=== PATIENT | female | born 1945 | race Caucasian/White ===

== ENCOUNTER → 2018-01-13 11:58 | Outpatient (CLI) | payer OTHER, SELFPAY ==
--- NOTE | 2018-01-13 | DI.MG.S_ITS ---
BILATERAL DIGITAL SCREENING MAMMOGRAM 3D/2D WITH CAD: 01/13/2018 CLINICAL: Routine screening. Comparison is made to exams dated: 12/07/2016 mammogram, 12/05/2015 mammogram, and 11/25/2014 mammogram - [facility]. There are scattered fibroglandular elements in both breasts. Current study was also evaluated with a Computer Aided Detection (CAD) system. No significant masses, calcifications, or other findings are seen in either breast. There has been no significant interval change. IMPRESSION: NEGATIVE There is no mammographic evidence of malignancy. A 1 year screening mammogram is recommended. This exam was interpreted at Station ID: [id number]. NOTE: For mammograms, a report in lay terms will be sent to the patient. Approximately 15% of breast malignancies will not be visualized mammographically. In the management of a palpable breast mass, a negative mammogram must not discourage biopsy of a clinically suspicious lesion. Electronically Signed By: Ti jackson/veronica:01/13/2018 15:35:08 letter sent: Normal Exam ACR BI-RADS Category 1: Negative 3341F
== END ==
PROVIDERS: PCP Physician Assistant; Visit Provider Physician Assistant
DX: Z12.31 Encounter for screening mammogram for malignant neoplasm of breast (principal)
CPT/HCPCS: 77063; 77067

== ENCOUNTER → 2018-11-24 07:51 | Outpatient (CLI) | payer OTHER, SELFPAY ==
[2018-11-24 09:03] LABS: Add Manual Diff / Slide Review NO; Basophils Absolute Auto 100 /uL (0-100); Basophils Percent Auto 0.9 % (0-2); Eosinophils Absolute Auto 100 /uL (0-450); Eosinophils Percent Auto 1.1 % (2-4); Hematocrit 38.2 % (36-46); Hemoglobin 12.8 g/dL (12.0-16.0); Lymphocytes Absolute Auto 2300 /uL (1100-4500); Lymphocytes Percent Auto 33.8 % (25-40); Mean Corpuscular HGB Conc 33.6 % (30-36); Mean Corpuscular Hemoglobin 30.4 PG (26-34); Mean Corpuscular Volume 90.6 fL (80-100); Monocytes Absolute Auto 500 /uL (0-900); Monocytes Percent Auto 6.7 % (3-14); Neutrophils Absolute Auto 3900 /uL (1500-7000); Neutrophils Percent Auto 57.5 % (50-75); Platelet Count 271 X10^3/uL (150-400); Red Blood Cell Count 4.21 X10^6/uL (4.0-5.2); Red Cell Distribution Width 13.2 % (11.6-14.8); White Blood Cell Count 6.8 X10^3/uL (4.5-11.0)
[2018-11-24 09:11] LABS: Alanine Aminotransferase 21 IU/L (9-52); Albumin 4.1 g/dL (3.5-5.0); Albumin Globulin Ratio 1.5 (1.0-2.8); Alkaline Phosphatase 85 U/L (38-126); Aspartate Aminotransferase 30 IU/L (14-36); BUN Creatinine Ratio 17.5 (6-22); Bilirubin Total 0.3 mg/dL (0.2-1.3); Blood Urea Nitrogen 14 mg/dL (7-17); Calcium 9.7 mg/dL (8.4-10.2); Carbon Dioxide 31 mmol/L (22-32); Chloride 101 mmol/L (98-107); Cholesterol 151 mg/dL (140-199); Estimated Glomerular Filt Rate > 60.0 mL/min (>60); Globulin 2.7 g/dL (1.7-4.1); Glucose 95 mg/dL (80-110); HDL Cholesterol 54 mg/dL (40-60); HEMOLYSIS < 15 (0-50); LDL Cholesterol Calculated 78 mg/dL (<100); Potassium 4.2 mmol/L (3.4-5.1); Sodium 139 mmol/L (137-145); Total Protein 6.8 g/dL (6.3-8.2); Triglycerides 96 mg/dL (35-150)
== END ==
PROVIDERS: PCP Physician Assistant; Visit Provider Physician Assistant
DX: I10 Essential (primary) hypertension (principal); E78.00 Pure hypercholesterolemia, unspecified
CPT/HCPCS: 36415; 80053; 80061; 85025

== ENCOUNTER → 2019-01-23 09:09 | Outpatient (CLI) | payer OTHER, SELFPAY ==
--- NOTE | 2019-01-23 | DI.MG.S_ITS ---
BILATERAL DIGITAL SCREENING MAMMOGRAM 3D/2D WITH CAD: 01/23/2019 CLINICAL: Routine screening. Comparison is made to exams dated: 01/13/2018 mammogram, 12/07/2016 mammogram, and 12/05/2015 mammogram - [facility]. There are scattered fibroglandular elements in both breasts. Current study was also evaluated with a Computer Aided Detection (CAD) system. No significant masses, calcifications, or other findings are seen in either breast. There has been no significant interval change. IMPRESSION: NEGATIVE There is no mammographic evidence of malignancy. A 1 year screening mammogram is recommended. This exam was interpreted at Station ID: [id number]. NOTE: For mammograms, a report in lay terms will be sent to the patient. Approximately 15% of breast malignancies will not be visualized mammographically. In the management of a palpable breast mass, a negative mammogram must not discourage biopsy of a clinically suspicious lesion. Electronically Signed By: Randy teague/veronica:01/23/2019 12:11:23 letter sent: Normal Exam ACR BI-RADS Category 1: Negative 3341F
== END ==
PROVIDERS: PCP Physician Assistant; Visit Provider Physician Assistant
DX: Z12.31 Encounter for screening mammogram for malignant neoplasm of breast (principal)
CPT/HCPCS: 77063; 77067

== ENCOUNTER → 2019-04-21 09:32 | Outpatient (CLI) | payer OTHER, SELFPAY ==
--- NOTE | 2019-04-21 | DI.MRI.S_ITS ---
PROCEDURE: MR KNEE LT WO CON INDICATIONS: Sudden onset of acute posterior and lateral left knee pain TECHNIQUE: Noncontrast sagittal PD fast spin echo and T2 fast spin echo with fat saturation, sagittal 3-D FLASH with fat saturation; coronal T1 spin echo and PD fast spin echo with fat saturation, and axial PD fast spin echo with fat saturation through the knee. COMPARISON: [facility], , KNEE 3V LEFT, 12/24/2013, 11:37. FINDINGS: Image quality: Excellent. Menisci: There is complex tear involving the body and posterior horn the medial meniscus. In addition, a small radial tear is noted in the posterior horn the medial meniscus. Mild degenerative tear is noted in the free edge of the body of the lateral meniscus. The meniscal root ligaments appear intact. Cruciate ligaments: The anterior and posterior cruciate ligaments appear intact. Medial structures: The medial collateral ligament appears intact. The postsemimembranosus tendon insertionsand meniscocapsular junction appear intact. Visualized portions of the pes anserinus tendons appear normal. No abnormal bursal fluid. Lateral structures: The lateral collateral ligament and the biceps femoris tendon appear intact. The popliteus tendon appears normal; the popliteofibular ligament appears intact. Iliotibial band appears normal. Anterior structures: The quadriceps and patellar tendons appear intact. Patellar alignment is normal. No femoral trochlear dysplasia or ventral trochlear prominence. No edema in the infrapatellar fat pad. Bones and cartilage: No bone marrow contusions or fractures. Severe chondromalacia patella. There is mild cartilage thinning and fibrillation of the medial and lateral femorotibial compartments. Joint space: There is moderate knee joint fluid. Tiny Mora's cyst. Normal appearing synovial plicae are incidentally noted. IMPRESSION: 1. Complex tear of the body and posterior horn of the medial meniscus. In addition, there is a radial tear of the posterior horn of the medial meniscus. 2. Degenerative tear of the free edge of the body of the lateral meniscus. 3. Severe chondromalacia patella. 4. Mild cartilage thinning and fibrillation of the medial and lateral femorotibial compartments. 5. Moderate knee joint effusion. 6. A tiny Mora's cyst. Dictated by: Brenton Mcintosh M.D. on 04/23/2019 at 8:55 Transcribed by: CHRISTOPHER on 04/23/2019 at 9:05 Approved by: Brenton Mcintosh M.D. on 04/23/2019 at 9:34
== END ==
PROVIDERS: PCP Physician Assistant; Visit Provider Physician Assistant
DX: M25.562 Pain in left knee (principal); S83.232A Complex tear of medial meniscus, current injury, left knee, initial encounter; S83.282A Other tear of lateral meniscus, current injury, left knee, initial encounter; M22.42 Chondromalacia patellae, left knee; M25.462 Effusion, left knee
CPT/HCPCS: 73721

== ENCOUNTER → 2020-01-22 10:16 | Outpatient (CLI) | payer OTHER, SELFPAY ==
[2020-01-23 06:52] LABS: COVID19 Sendout Not Detected (Not Detect)
== END ==
PROVIDERS: PCP Physician Assistant; Visit Provider Physician Assistant
DX: Z01.812 Encounter for preprocedural laboratory examination (principal)
CPT/HCPCS: 87635

== ENCOUNTER → 2020-02-19 12:56 | Outpatient (CLI) | payer OTHER, SELFPAY ==
--- NOTE | 2020-02-19 12:59 | DI.MG.S_ITS ---
BILATERAL DIGITAL SCREENING MAMMOGRAM 3D/2D WITH CAD: 02/19/2020 Comparison is made to exams dated: 12/07/2016 mammogram and 12/05/2015 mammogram - [facility]. There are scattered fibroglandular elements in both breasts. Current study was also evaluated with a Computer Aided Detection (CAD) system. No significant masses, calcifications, or other findings are seen in either breast. There has been no significant interval change. IMPRESSION: NEGATIVE There is no mammographic evidence of malignancy. A 1 year screening mammogram is recommended. This exam was interpreted at Station ID: [id number]. NOTE: For mammograms, a report in lay terms will be sent to the patient. Approximately 15% of breast malignancies will not be visualized mammographically. In the management of a palpable breast mass, a negative mammogram must not discourage biopsy of a clinically suspicious lesion. Electronically Signed By: Narcisa lacey/veronica:02/19/2020 16:55:39 letter sent: Normal Exam ACR BI-RADS Category 1: Negative 3341F
== END ==
PROVIDERS: PCP Physician Assistant; Referring Provider Physician Assistant; Visit Provider Physician Assistant
DX: Z12.31 Encounter for screening mammogram for malignant neoplasm of breast (principal)
CPT/HCPCS: 77063; 77067

== ENCOUNTER → 2020-03-01 10:55 | Outpatient (CLI) | payer OTHER, SELFPAY ==
[2020-03-02 06:38] LABS: COVID19 Sendout Not Detected (Not Detect)
== END ==
PROVIDERS: PCP Physician Assistant; Visit Provider Physician Assistant
DX: Z11.59 Encounter for screening for other viral diseases (principal)
CPT/HCPCS: 87635

== ENCOUNTER 2020-03-04 12:06 | Day surgery (SDC) | payer OTHER, SELFPAY ==
--- NOTE | 2020-03-04 | PATH_ITS ---
[facility] Accession Number: [id number] . 01 Material submitted: . PART A: duodenum - DUODENUM PART B: gastrointestinal site - STOMACH PART C: esophagus - ESOPHAGUS PART D: colon - COLON POLYP @ 80CM PART E: colon - BIOPSY COLON @ 45CM . 01 Clinical history: . SDC . 02 Diagnosis: A. Duodenum, Biopsy: Duodenal mucosa with no diagnostic abnormality. Negative for active inflammation, features of sprue, dysplasia, or malignancy. . B. Stomach, Biopsy: Antral mucosa with mild chronic gastritis. Negative for Helicobacter by immunohistochemistry. Negative for intestinal metaplasia. Negative for dysplasia and malignancy. . C. Esophagus, Biopsy: Squamocolumnar junctional mucosa with specialized intestinal metaplasia, consistent with Vera's esophagus. Negative for dysplasia and malignancy. . D. Colon, Polyp at 80 cm, Biopsy: Inflammatory polyp. . E. Colon, 45 cm, Biopsy: Tubular adenoma. [facility] 03/06/2020 1526 Local . 02 Electronically signed: . Yareli Ledezma MD, Pathologist NPI- [id number] . 01 Gross description: . Part A: DUODENUM: Received in formalin is 1 fragment(s) of crum, soft tissue measuring 0.3 x 0.3 x 0.2 cm submitted entirely in 1 cassette(s) Part B: STOMACH: Received in formalin are 2 fragment(s) of crum, soft tissue measuring 0.5 x 0.2 x 0.1 cm to 0.2 x 0.2 x 0.1 cm submitted entirely in 1 cassette(s) Part C: ESOPHAGUS: Received in formalin are 2 fragment(s) of crum, soft tissue measuring 0.3 x 0.2 x 0.2 cm to 0.2 x 0.2 x 0.1 cm submitted entirely in 1 cassette(s) Part D: COLON POLYP @ 80CM: Received in formalin is 1 fragment(s) of crum, soft tissue measuring 0.3 x 0.3 x 0.3 cm submitted entirely in 1 cassette(s) Part E: BIOPSY COLON @ 45CM: Received in formalin are 2 fragment(s) of crum, soft tissue measuring 0.4 x 0.4 x 0.3 cm to 0.2 x 0.1 x 0.1 cm submitted entirely in 1 cassette(s) /Q 03/05/2020 0150 Local . 02 Microscopic: . B. An immunohistochemical stain was performed to evaluate for Helicobacter organisms and is negative. The control stain showed appropriate reactivity. . * This test was developed and its performance characteristics determined by [facility]. It has not been cleared or approved by the U.S. Food and Drug Administration. The FDA has determined that such clearance or approval is not necessary. This test is used for clinical purposes. It should not be regarded as investigational or for research. . 02 Pathologist provided ICD-10: D12.6, K22.70 . 02 CPT . 751387, 650397, 038843, 878659, 803315, [id number] Performed at: 01 [facility] [address] [place] [address], [place], [place] [id number] MD Ti Lozano MD Phone: [phone] Performed at: 02 [facility] [address] [place], [place] [id number] MD Yareli Ledezma MD Phone: [phone]
[2020-03-04 12:41] VITALS: BP 128/73; PULSE 92; RESP 16; TEMP 36.6; O2SAT 100; BMI 27.6
[2020-03-04] MEDS: SODIUM CHLORIDE 0.9% 1,000 ML 200 ML IV (12:41)
--- NOTE | 2020-03-04 13:00 | P.HP_ITS ---
History of Present Illness History of Present Illness Date Patient Seen: 03/04/20 Time Patient Seen: 13:00 Chief complaint: SDC Narrative: This is a 75-year-old woman with history of Vera's esophagus, esophageal stricture, colon polyps, hypertension, GERD, paroxysmal atrial tachycardia status post ablation, here to follow-up for her Vera's esophagus to discuss having a repeat EGD. Her last EGD was done at the [facility], and biopsies were consistent with Vera's esophagus without dysplasia. She had a small hiatal hernia found, and evidence that her prior esophageal dilation which have been done in 2015 was successful. No repeat dilation was done in 2017. She had a colonoscopy done by Dr. Cast 2012. ROS: She currently denies any symptoms of abdominal pain, nausea, vomiting, constipation, diarrhea, melena, hematochezia. She continues to take omeprazole 20 mg once daily. Thirteen system review is otherwise negative other than as mentioned below and in HPI. PE: GENERAL: Well groomed and cooperative. Appears stated age. Answers questions promptly and appropriately. Vital signs noted. HENT: Normocephalic, atraumatic. Hearing intact. EYES: Conjunctiva pink, sclera white, no periorbital swelling. CARDIOVASCULAR: Regular rate. No pedal edema. RESPIRATORY: Non-tachypneic, breathing comfortably on room air. GASTROINTESTINAL: Abdomen soft and non-distended GENITALURINARY: No flank tenderness. MUSCULOSKELETAL: Equal tone and mass bilaterally. SKIN: Warm, dry, soft, appropriate color for ethnicity. No other lesions, rashes, or wounds. NEURO: Alert and Oriented X 3. No gross sensory deficits, or cognitive issues. PSYCH: Appropriate affect and mood. Patient History Medical History Vera esophagus (Acute) High cholesterol (Acute) HTN (hypertension) (Acute) Surgical History History of cardiac radiofrequency ablation (Acute) Hx of hysterectomy (Acute) Family & Social History Family History Mother Hypertension Father Heart disease Sister Cancer Social History: household members spouse Tobacco & Substance use: Smoking Status Never smoker alcohol intake current alcohol intake frequency holiday/special occasion Substance Use Type crack/cocaine Meds Home Medications and Allergies Home Medications Medication Instructions Recorded Confirmed Type aspirin 81 mg tablet,delayed 81 mg PO DAILY 01/10/20 03/04/20 History release calcium carb-Ca gluc 500 mg 500 tab PO DAILY 01/10/20 03/04/20 History calcium-magnesium ox-Mg gluc 250 mg tablet cholecalciferol (vitamin D3) 10 10 mcg PO DAILY 01/10/20 03/04/20 History mcg/drop (400 unit/drop) oral drops coenzyme Q10 75 mg capsule 300 mg PO DAILY cap 01/10/20 03/04/20 History hydrochlorothiazide 12.5 mg capsule 12.5 mg PO DAILY 01/10/20 03/04/20 History krill oil 500 mg capsule 1 mg PO DAILY 01/10/20 03/04/20 History lactobacillus combination no.9 4 4,000 mmu cells PO DAILY 01/10/20 03/04/20 History billion cell capsule lisinopril 20 mg tablet 20 mg PO DAILY 01/10/20 03/04/20 History metoprolol succinate 25 mg capsule 25 mg PO DAILY 01/10/20 03/04/20 History sprinkle, ext. release 24 hr omeprazole 20 mg capsule,delayed 20 mg PO DAILY 01/10/20 03/04/20 History release simvastatin 10 mg tablet 10 mg PO DAILY 01/10/20 03/04/20 History Allergies Allergy/AdvReac Type Severity Reaction Status Date / Time No Known Drug Allergies Allergy Verified 03/04/20 12:30 Exam Vital Signs (past 8 hours): - 03/04/20 12:41 Temperature 97.9 F Pulse Rate 92 H Respiratory Rate 16 Blood Pressure 128/73 Pulse Oximetry 100 Oxygen Delivery Method Room Air Assessment & Plan Assessment and plan (1) Personal history of colonic polyps: Status: Acute (2) Vera esophagus: Status: Acute (3) Acid reflux disease: Status: Acute Assessment & Plan narrative: Risks and benefits of screening colonoscopy and EGD with possible biopsy and possible polypectomy were discussed with the patient including risk of bleeding, perforation, need for additional procedures, risks of anesthesia. The patient desires to proceed with the colonoscopy and EGD procedures. COVID-19 COVID-19 status: Negative Result date/Date tested (Pos, Neg/Pending): 03/01/20 Time Spent With Patient Time with patient: 15-24 minutes Quality VTE Deep Vein Thrombosis/Pulmonary Embolism Present on Admission: No
--- NOTE | 2020-03-04 13:20 | PM.OP.ENDO ---
Operative Date/Time/Diagnoses Date of procedure: 03/04/20 Time of procedure: 13:20 Pre-op diagnosis: History of Vera's esophagus, history of esophageal stricture, history of colon polyps Post-op diagnosis: other (4 cm Vera's esophagus, mild gastritis, mild duodenitis) Procedure & Clinicians Indications: History of Vera's esophagus, history of esophageal stricture, history of colon polyps. Last EGD 3 years ago, last colonoscopy 10 years ago. Surgeon: Brittanie Moctezuma Procedure Notes SCOAP/Timeout: Performed Procedure in detail: The patient was brought to the room and placed in left lateral decubitus position with all bony prominences padded. A bite block was positioned in the patient's mouth to protect the lips, teeth, and tongue for the procedure. A time-out was performed and then the patient was given procedural sedation starting with 2 mg of Versed and 100 mcg of fentanyl. Vitals were monitored throughout the procedure and remained stable. Once adequately sedated, the procedure was begun. The lubricated gastroscope was passed through the bite block and across the tongue and into the esophagus without incident. A tubular view of the esophagus was maintained as the scope was advanced through the esophagus and into the stomach. The scope was advanced through the stomach and to the pylorus. The scope was gently popped through the pylorus and into the duodenal bulb. The scope was flexed and advanced into the second and third portions of the duodenum. The duodenum and duodenal bulb showed signs of mild inflammation. This was biopsied.. The scope was withdrawn into the stomach. The stomach showed signs of mild gastritis. This was biopsied.. The scope was retroflexed and the gastric cardia was examined. The hiatus revealed a Hill grade 4 hiatal hernia, without any erosions or William ulcers.. The scope was then straightened, and withdrawn into the esophagus. There was no evidence of Vera's esophagus from 30 cm to 34 cm in the distal esophagus. There was no evidence of stricture. The distal esophagus was biopsied. The scope was then withdrawn through the esophagus with a tubular view. The scope was then withdrawn from the patient without incident. The patient was then turned for the colonoscopy portion of the procedure. She was found to be quite awake at this point, an additional 2 mg of Versed were given. A total of seven mg of Versed and 150 micro g of fentanyl were given for the entire procedure A rectal exam was performed revealing no abnormalities. The colonoscope was then introduced to the rectum and advanced to the cecum in the usual fashion. The cecum was identified by the appendiceal orifice, the mucosal tri-fold, and the ileocecal valve. The scope was then retracted while rotating side to side and examining each mucosal fold. In adenomatous appearing polyp was found at 80 cm and removed with cold snare. I have a plastic appearing polyp was found at 45 cm and removed with cold forceps. At the conclusion of the procedure retroflexion was performed and small grade 1-2 internal hemorrhoids without stigmata of bleeding were seen. The scope was then withdrawn from the rectum the procedure was concluded. The patient tolerated the procedure well and was transferred to the PACU in stable condition. Scope withdrawal time: 12 Sedation minutes: 37 Findings: Vera's esophagus, gastritis, hiatal hernia (Hill grade 4) and polyp (Two colon polyps) Specimen(s): other (Biopsies of duodenum, stomach, distal esophagus colon polyp from 80 cm, and colon polyp from 45 cm) Complications: none Impression: [place]-colored mucosa in the distal esophagus from 30 cm to 34 cm, mild endoscopic gastritis and duodenitis, adenomatous appearing small polyp at 80 cm, hyperplastic appearing small polyp at 45 cm. Post-procedure Recommendations: Colonscopy in 5 years (Depending on pathology results), EGD in 3 years (Depending on pathology results), Continue medication(s) (Continue omeprazole) and Other recommendation (Letter will be sent with pathology results and final recommendations for future colonoscopy and EGD) Follow up: as needed Disposition: PACU
[2020-03-04] MEDS: ONDANSETRON 4 MG/2 ML INJ IV (13:25)
[2020-03-04] MEDS: MIDAZOLAM 5 MG/5 ML VIAL IV ×4 (13:27→13:45)
[2020-03-04] MEDS: LIDOCAINE 4% SOLN 50 ML 20 ML TOP (13:30)
[2020-03-04] MEDS: fentaNYL 250 MCG/5 ML INJ IV ×2 (13:32→13:44)
[2020-03-04 14:12] VITALS: BP 111/50; PULSE 81; RESP 19; TEMP 36.1; O2SAT 99
[2020-03-04 14:17] VITALS: BP 105/59; PULSE 77; RESP 12; O2SAT 100
[2020-03-04 14:22] VITALS: BP 119/55; PULSE 72; RESP 10; O2SAT 100
[2020-03-04 14:32] VITALS: BP 109/56; PULSE 66; RESP 13; O2SAT 100
[2020-03-04 14:40] VITALS: BP 107/49; PULSE 75; RESP 16; TEMP 36.4; O2SAT 100
--- NOTE | 2020-03-04 15:11 | SUR.PHASEII ---
1500-Pt dressed and ready to go, iv site dcd site clear. All dc instructions given and pt verbalizes understanding. Taken via wc to curbside private vehicle and
== END 2020-03-04 15:00 | disposition home or self-care (01) ==
PROVIDERS: PCP Physician Assistant; Referring Provider Surgery; Visit Provider Surgery
PROC: 0DJ08ZZ Inspection of Upper Intestinal Tract, Via Natural or Artificial Opening Endoscopic (ICD-10-PCS; CPT 43235; principal; 2020-03-04 13:00)
PROC: 0DJD8ZZ Inspection of Lower Intestinal Tract, Via Natural or Artificial Opening Endoscopic (ICD-10-PCS; CPT 45378; 2020-03-04 13:00)
DX: Z12.11 Encounter for screening for malignant neoplasm of colon (principal); Z86.010 Personal history of colon polyps; E78.00 Pure hypercholesterolemia, unspecified; I10 Essential (primary) hypertension; K64.0 First degree hemorrhoids; K44.9 Diaphragmatic hernia without obstruction or gangrene; K22.70 Barrett's esophagus without dysplasia; K29.80 Duodenitis without bleeding; K29.50 Unspecified chronic gastritis without bleeding; D12.6 Benign neoplasm of colon, unspecified
CPT/HCPCS: 45385; 45380; 43239; 45390; 99152; 99153; J2250; J2405; J3010

== ENCOUNTER → 2020-08-15 18:37 | Outpatient (ROUT) | payer OTHER, SELFPAY ==
[2020-08-15 19:38] LABS: Add Manual Diff / Slide Review NO; Basophils Absolute Auto 100 /uL (0-100); Eosinophils Absolute Auto 100 /uL (0-450); Eosinophils Percent Auto 1.1 % (2-4); Hemoglobin 13.2 g/dL (12.0-16.0); Lymphocytes Absolute Auto 2200 /uL (1100-4500); Lymphocytes Percent Auto 29.5 % (25-40); Mean Corpuscular HGB Conc 32.9 % (30-36); Mean Corpuscular Hemoglobin 29.9 PG (26-34); Monocytes Absolute Auto 500 /uL (0-900); Monocytes Percent Auto 7.4 % (3-14); Neutrophils Absolute Auto 4500 /uL (1500-7000); Platelet Count 283 X10^3/uL (150-400); Red Cell Distribution Width 13.3 % (11.6-14.8); White Blood Cell Count 7.3 X10^3/uL (4.5-11.0)
[2020-08-15 19:40] LABS: Alanine Aminotransferase 22 IU/L (<35); Albumin 4.3 g/dL (3.5-5.0); Albumin Globulin Ratio 1.5 (1.0-2.8); Alkaline Phosphatase 97 U/L (38-126); Aspartate Aminotransferase 34 IU/L (14-36); Bilirubin Total 0.3 mg/dL (0.2-1.3); Blood Urea Nitrogen 17 mg/dL (7-17); Calcium 9.8 mg/dL (8.4-10.2); Carbon Dioxide 32 mmol/L (22-32); Chloride 100 mmol/L (98-107); Cholesterol 164 mg/dL (140-199); Estimated Glomerular Filt Rate > 60.0 mL/min (>60); Globulin 2.8 g/dL (1.7-4.1); Glucose 91 mg/dL (80-110); HDL Cholesterol 53 mg/dL (40-60); HEMOLYSIS < 15 (0-50); LDL Cholesterol Calculated 65 mg/dL (<100); Potassium 4.2 mmol/L (3.4-5.1); Sodium 136 mmol/L (137-145); Total Protein 7.1 g/dL (6.3-8.2); Triglycerides 232 mg/dL (35-150)
== END ==
PROVIDERS: PCP Physician Assistant; Visit Provider Physician Assistant
DX: I10 Essential (primary) hypertension (principal)
CPT/HCPCS: 80053; 80061; 85025

== ENCOUNTER → 2020-08-19 12:24 | Outpatient (CLI) | payer MEDICARE, SELFPAY ==
[2020-08-19] MEDS: COVID-19 VACC #1, MRNA(MOD) 100 MCG/0.5 ML VIAL IM (12:27)
== END ==
PROVIDERS: PCP Physician Assistant; Visit Provider Internal Medicine
DX: Z23 Encounter for immunization (principal)
CPT/HCPCS: 0011A; 91301

== ENCOUNTER → 2020-09-16 12:22 | Outpatient (CLI) | payer MEDICARE, SELFPAY ==
[2020-09-16] MEDS: COVID-19 VACC #2, MRNA(MOD) 100 MCG/0.5 ML VIAL IM (12:34)
== END ==
PROVIDERS: PCP Physician Assistant; Visit Provider Internal Medicine
DX: Z23 Encounter for immunization (principal)
CPT/HCPCS: 0012A; 91301

== ENCOUNTER 2020-12-18 12:45 | Outpatient (RCR) | payer OTHER, SELFPAY ==
--- NOTE | 2020-10-31 13:42 | PT.OIE ---
Current Diagnoses Stiffness of left hip, not elsewhere classified (10/31/20) Muscle weakness (generalized) (10/31/20) Rectocele (10/31/20) Flatulence (10/31/20) Past Medical History (Last Reviewed 03/04/20 @ 13:01 by Brittanie Moctezuma MD) Vera esophagus High cholesterol HTN (hypertension) Past Surgical History (Last Reviewed 03/04/20 @ 13:01 by Brittanie Moctezuma MD) History of cardiac radiofrequency ablation Hx of hysterectomy Visit Care Team Role Provider Type Leilani Titus PA-C Family Provider Non-Staff Primary Care Provider Specialty: Internal Medicine Address: [address] [place] [address], [address] Email: [email or web address] Corin De La Paz MD Attending Provider Non-Staff Referring Provider Specialty: Urology Address: [address] [place] [address], [id number] Email: Physical Therapy Initial Evaluation PT-OP-A Visit Information Start: 10/22/20 10:34 Freq: Status: Active Protocol: Document 10/31/20 10:40 LRN (Rec: 10/31/20 11:30 LRN [id number]) Out-Patient Physical Therapy Visit Information Visit Information Visit Type Initial Evaluation Visit Start Time 10:40 Visit Stop Time 11:29 Total Visit Minutes 49 Visit Number 1 Evaluation Information Evaluation Date 10/31/20 Precautions Precautions Arthritis, Osteporosis, L meniscus tear. PT-OP-B Current Condition Start: 10/22/20 10:34 Freq: Status: Active Protocol: Document 10/31/20 10:40 LRN (Rec: 10/31/20 11:30 LRN [id number]) Current Condition History of Current Condition Onset Date 07/25/2017 Current Complaints Urinary leakage worsened in last few years. History of Current Condition No pain, but uncomfortable feels like guts are falling out. Leaks with transfers to standing and with walking to bathroom. Feels rectum is protruding through vagina wall . Sometimes trouble with constipation and was told to take Psyllium and since then has no constipation. Reports sometimes has uncontrolled flatulence and noise from pelvic floor. Prior Treatments and Tests None. Bladder Studues ([address] De La Paz in [place]: for stress incontinence, and urodynamic study done 09/30/20). Found problem not to be stress related. Future Testing and Treatments Planned None Developmental History Developmental History Progressive worsening of symptoms. Has had 2 vaginal deliveries without urinary leakage. Leakage started 3-4 yrs ago. Treatment Goals Patient/Caregiver Goals Pt goal with therapy is to avoid surgery (Bladder lift with sling). Prior Functional Status Baseline Function- ADL's Independent Baseline Function- Mobility Independent Baseline Function- Other Wears mini-pads for urinary leakage. Wears 2-3/day Current Functional Impairments (Reported) Functional Limitations- Other Hinders abilitiy to go out because of need to know where bathrooms are. Uncontrolled flatulance. Personal Factors Other Personal Factors That May Effect Arthritis, Osteporosis, L knee Therapy/Recovery menicus tear, Chronic back pain. PT-OP-C Subjective Start: 10/22/20 10:34 Freq: Status: Active Protocol: Document 10/31/20 10:40 LRN (Rec: 10/31/20 11:30 LRN [id number]) Patient Questionnaires Pelvic Pain and Urgency/Frequency Patient Symptom Scale Pelvic Pain Score 7 PT-OP-I Pelvic Floor Start: 10/22/20 10:34 Freq: Status: Active Protocol: Document 10/31/20 10:40 LRN (Rec: 10/31/20 11:30 LRN [id number]) Pelvic Floor Assessment Urine Pelvic Floor Surgery No Urinary Symptoms Urge Sensation,Prolapse, Dribbling After Urination, Falling Out Feeling/Heavy Leakage Size Small Leakage Cause Urge Other Leakage Causes Transfers to standing. Leaks Per Day 3-4 Pads Used In 24 Hours 3-4 Urine Pad Type Panty Liner Bowel Bowel Symptoms Uncontrolled Flatulence Bowel Movement Frequency 1 [place] Stool Chart Type 1-7 4 Pelvic Clock Pelvic Clock 12-3 Tenderness Pelvic Clock 3-6 Atrophy Pelvic Clock 6-9 Atrophy Pelvic Clock 9-12 Atrophy Prolapse Cystocele Grade 1 Rectocele Grade 3 Contraction Ability Voluntary Contraction Weak Manual Muscle Testing Left 1 Manual Muscle Testing Right 3 Manual Muscle Testing Anterior 2 Manual Muscle Testing Posterior 0 Muscle Endurance (Seconds) 2 Number of Quick Contractions In 10 0 Seconds Comments Pelvic Floor Comments Able to feel Quick Flicks with 2 finger insertion, not able to feel with 1 finger insertion. PT-OP-J Posture/Palpation/Skin Start: 10/22/20 10:34 Freq: Status: Active Protocol: Document 10/31/20 10:40 LRN (Rec: 10/31/20 11:30 LRN [id number]) Posture Evaluation Position Standing T-Spine Posture Increased Kyphosis L-Spine Posture Increased Lordosis Knee Posture (L) Genu Valgus,(R) Genu Valgus PT-OP-K Range of Motion Start: 10/22/20 10:34 Freq: Status: Active Protocol: Document 10/31/20 10:40 LRN (Rec: 10/31/20 11:30 LRN [id number]) Lumbar Spine Range of Motion Lumbar Spine Active Percentage Testing Position Standing Flexion 100 Extension 25 Rotation Left 75 Rotation Right 75 Lateral Flexion Left 75 Lateral Flexion Right 75 Active Degrees Testing Position Standing Flexion 90 Hip Goniometric Range of Motion Hip Right Passive Testing Position Supine Straight Leg Raise 85 Internal Rotation 30 External Rotation 60 Left Passive Testing Position Supine Straight Leg Raise 95 Internal Rotation 25 External Rotation 40 Comments Trunk rotates R with testing of hip ext PT-OP-M Strength Start: 10/22/20 10:34 Freq: Status: Active Protocol: Document 10/31/20 10:40 LRN (Rec: 10/31/20 11:30 LRN [id number]) Trunk Strength Trunk Manual Muscle Testing Core Stabilization Loss of core stability: Trunk rotates R with testing of hip ext Hip Strength Hip Manual Muscle Testing Right Flexion (L2) 5 Normal Extension (S1) 5 Normal Abduction 5 Normal Adduction 5 Normal External Rotation 5 Normal Internal Rotation 5 Normal Left Flexion (L2) 5 Normal Extension (S1) 4 Good Abduction 5 Normal Adduction 2+ Poor+ External Rotation 5 Normal Comments IR caused knee pian. PT-OP-Q Treatments Start: 10/22/20 10:34 Freq: Status: Active Protocol: Document 10/31/20 10:40 LRN (Rec: 10/31/20 11:30 LRN [id number]) Self-Care/Home Management Treatment Education Other Education Discussed results of evaluation, goals, and plan of care. Activities Self-Care/Home Management Activities Issued & reviewed and I/S pt in Bladder Diary to be completed in the next week. Issued & reviewed HEP: Kegels : Quick Flicks, Long holds, Aggrevators. PT-OP-T Assessment and Plan Start: 10/22/20 10:34 Freq: Status: Active Protocol: Document 10/31/20 10:40 LRN (Rec: 10/31/20 11:30 LRN [id number]) Physical Therapy Assessment Rehab Potential Rehabilitation Potential Good Evaluation Complexity Number of Personal Factors/Comorbidities 1-2 Number of Body Systems Impaired 4 or More Clinical Presentation at Evaluation Evolving Impairments Impairments Activity Tolerance, Coordination,ROM,Strength, Transfers Goals Three Impairment Uncontrolled flatulence Halfway Goal (LTG) Pt will be able to control flatulence with transfers. LTG Duration 12/30/20 Two Impairment Urinary leakage with transfers Short Term Goal (STG) No leakage with transfers to standing. STG Duration 11/28/20 Substation Mechanic Goal (LTG) Pt will be educated in self care PF strengthening exercises, for pt goal of decreasing need for PF sling surgery. LTG Duration 12/30/20 One Impairment Lacks appropriate self care program. Short Term Goal (STG) Pt will be educated in breathing techniques, transfers, body mechanics, and self care. STG Duration 11/14/20 Halfway Goal (LTG) Pt will be educated in an independent self care HEP of PF strengtheniing exercises to prevent worsening prolapse symptoms. LTG Duration 12/30/20 Assessment Summary Assessment Pt is a 75 yo female with complaints of urinary leakage primarily with transfer to standing and with walking to the bathroom. The pt reports no pelvic floor pain, but reports a feeling of falling out. She presents with a grade 3 rectocele and grade 1 cystocele, resulting in flatulence symptoms and urinary leakage with stress. The pt hopes to learn a PF care program in 3 visits, but will need an extended time period to achieve her stated goals. Additionally the pt would benefit from more visits to address other factors affecting her dysfunction (hip mobility and low back dysfunction). The pt will benefit from skilled physical therapy for pelvic floor rehabilitation of strengthening ex's, core/hip strengthening and ROM ex's and pt education in proper PF care & body mechanics. Physical Therapy Plan Frequency and Duration Frequency of Treatment 1x/Week Plan of Care Start Date 10/31/20 Plan of Care End Date 12/30/20 Therapeutic Interventions Therapeutic Interventions Home Exercise Program,Manual Therapy,Neuromuscular Re- education,Patient/Caregiver Education,Self-Care/Home Management,Soft Tissue Mobilization,Therapeutic Activities,Therapeutic Exercises Modalities Biofeedback,Electric Stimulation Next Visit Focus/Plan Next Note Type Treatment Note Next Visit Plan Review/discuss Bladder Diary, review HEP and add Deep Breathing, PF strengthening rehab, education in PF care and proper body mechanics, possible PF EMG assessment, ex 's for core/hips.
--- NOTE | 2020-10-31 13:42 | PT.OPPOC ---
Physical, Occupational & Speech Therapy At [facility] Current Diagnoses Stiffness of left hip, not elsewhere classified (10/31/20) Muscle weakness (generalized) (10/31/20) Rectocele (10/31/20) Flatulence (10/31/20) Visit Care Team Role Provider Type Leilani Titus PA-C Family Provider Non-Staff Primary Care Provider Specialty: Internal Medicine Address: [address] [place] [address], [address] Email: [email or web address] Corin De La Paz MD Attending Provider Non-Staff Referring Provider Specialty: Urology Address: [address] [place] [address], [address] Email: Plan Of Care PT-OP-T Assessment and Plan Start: 10/22/20 10:34 Freq: Status: Active Protocol: Document 10/31/20 10:40 LRN (Rec: 10/31/20 11:30 LRN [id number]) Physical Therapy Assessment Rehab Potential Rehabilitation Potential Good Evaluation Complexity Number of Personal Factors/Comorbidities 1-2 Number of Body Systems Impaired 4 or More Clinical Presentation at Evaluation Evolving Impairments Impairments Activity Tolerance, Coordination,ROM,Strength, Transfers Goals Three Impairment Uncontrolled flatulence Residential Goal (LTG) Pt will be able to control flatulence with transfers. LTG Duration 12/30/20 Two Impairment Urinary leakage with transfers Short Term Goal (STG) No leakage with transfers to standing. STG Duration 11/28/20 Residential Goal (LTG) Pt will be educated in self care PF strengthening exercises, for pt goal of decreasing need for PF sling surgery. LTG Duration 12/30/20 One Impairment Lacks appropriate self care program. Short Term Goal (STG) Pt will be educated in breathing techniques, transfers, body mechanics, and self care. 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 LTG Duration 12/30/20 Assessment Summary Assessment Pt is a 75 yo female with complaints of urinary leakage primarily with transfer to standing and with walking to the bathroom. The pt reports no pelvic floor pain, but reports a feeling of falling out. She presents with a grade 3 rectocele and grade 1 cystocele, resulting in flatulence symptoms and urinary leakage with stress. The pt hopes to learn a PF care program in 3 visits, but will need an extended time period to achieve her stated goals. Additionally the pt would benefit from more visits to address other factors affecting her dysfunction (hip mobility and low back dysfunction). The pt will benefit from skilled physical therapy for pelvic floor rehabilitation of strengthening ex's, core/hip strengthening and ROM ex's and pt education in proper PF care & body mechanics. Physical Therapy Plan Frequency and Duration Frequency of Treatment 1x/Week Plan of Care Start Date 10/31/20 Plan of Care End Date 12/30/20 Therapeutic Interventions Therapeutic Interventions Home Exercise Program,Manual Therapy,Neuromuscular Re- education,Patient/Caregiver Education,Self-Care/Home Management,Soft Tissue Mobilization,Therapeutic Activities,Therapeutic Exercises Modalities Biofeedback,Electric Stimulation Next Visit Focus/Plan Next Note Type Treatment Note Next Visit Plan Review/discuss Bladder Diary, review HEP and add Deep Breathing, PF strengthening rehab, education in PF care and proper body mechanics, possible PF EMG assessment, ex 's for core/hips. Plan of Care Dates Plan of Care Start Date 10/31/20 Plan of Care End Date 12/30/20 Electronically Signed by: Ama Puri, PT 10/31/20 1020 Please Sign and Return: I have reviewed this Plan of Care and certify that the skilled therapy services above are required to meet the patient?s needs. Physician Signature Date Printed Name and Credentials Clinical Instructor Signature Printed Name and Credentials
--- NOTE | 2020-11-06 15:35 | PT.OTN ---
Current Diagnoses Stiffness of left hip, not elsewhere classified (11/06/20) Muscle weakness (generalized) (11/06/20) Rectocele (11/06/20) Flatulence (11/06/20) Physical Therapy Treatment Note PT-OP-A Visit Information Start: 10/22/20 10:34 Freq: Status: Active Protocol: Document 11/06/20 14:17 LRN (Rec: 11/06/20 15:34 LRN [id number]) Out-Patient Physical Therapy Visit Information Visit Information Visit Type Treatment Note Visit Start Time 14:17 Visit Stop Time 15:03 Total Visit Minutes 46 Visit Number 2 Evaluation Information Evaluation Date 10/31/20 Precautions Precautions Arthritis, Osteporosis, L meniscus tear. PT-OP-B Current Condition Start: 10/22/20 10:34 Freq: Status: Active Protocol: Document 10/31/20 10:40 LRN (Rec: 10/31/20 11:30 LRN [id number]) Current Condition History of Current Condition Onset Date 07/25/2017 Current Complaints Urinary leakage worsened in last few years. History of Current Condition No pain, but uncomfortable feels like guts are falling out. Leaks with transfers to standing and with walking to bathroom. Feels rectum is protruding through vagina wall . Sometimes trouble with constipation and was told to take Psyllium and since then has no constipation. Reports sometimes has uncontrolled flatulence and noise from pelvic floor. Prior Treatments and Tests None. Bladder Studues ([address] De La Paz in [place]: for stress incontinence, and urodynamic study done 09/30/20). Found problem not to be stress related. Future Testing and Treatments Planned None Developmental History Developmental History Progressive worsening of symptoms. Has had 2 vaginal deliveries without urinary leakage. Leakage started 3-4 yrs ago. Treatment Goals Patient/Caregiver Goals Pt goal with therapy is to avoid surgery (Bladder lift with sling). Prior Functional Status Baseline Function- ADL's Independent Baseline Function- Mobility Independent Baseline Function- Other Wears mini-pads for urinary leakage. Wears 2-3/day Current Functional Impairments (Reported) Functional Limitations- Other Hinders abilitiy to go out because of need to know where bathrooms are. Uncontrolled flatulance. Personal Factors Other Personal Factors That May Effect Arthritis, Osteporosis, L knee Therapy/Recovery menicus tear, Chronic back pain. PT-OP-C Subjective Start: 10/22/20 10:34 Freq: Status: Active Protocol: Document 11/06/20 14:17 LRN (Rec: 11/06/20 15:34 LRN [id number]) OP-PT Subjective Patient Comments Patient Comments States she forgot her bladder diary at home. Realized that she drinks a lot of water and her triggers are running water and stepping outside when its cold. Drinks 3 cups of black tea a day (2 in AM) and coffee in afternoon @ 4p and 1 black tea at 9:30 pm. PT-OP-I Pelvic Floor Start: 10/22/20 10:34 Freq: Status: Active Protocol: Document 10/31/20 10:40 LRN (Rec: 10/31/20 11:30 LRN [id number]) Pelvic Floor Assessment Urine Pelvic Floor Surgery No Urinary Symptoms Urge Sensation,Prolapse, Dribbling After Urination, Falling Out Feeling/Heavy Leakage Size Small Leakage Cause Urge Other Leakage Causes Transfers to standing. Leaks Per Day 3-4 Pads Used In 24 Hours 3-4 Urine Pad Type Panty Liner Bowel Bowel Symptoms Uncontrolled Flatulence Bowel Movement Frequency 1 [place] Stool Chart Type 1-7 4 Pelvic Clock Pelvic Clock 12-3 Tenderness Pelvic Clock 3-6 Atrophy Pelvic Clock 6-9 Atrophy Pelvic Clock 9-12 Atrophy Prolapse Cystocele Grade 1 Rectocele Grade 3 Contraction Ability Voluntary Contraction Weak Manual Muscle Testing Left 1 Manual Muscle Testing Right 3 Manual Muscle Testing Anterior 2 Manual Muscle Testing Posterior 0 Muscle Endurance (Seconds) 2 Number of Quick Contractions In 10 0 Seconds Comments Pelvic Floor Comments Able to feel Quick Flicks with 2 finger insertion, not able to feel with 1 finger insertion. PT-OP-J Posture/Palpation/Skin Start: 10/22/20 10:34 Freq: Status: Active Protocol: Document 10/31/20 10:40 LRN (Rec: 10/31/20 11:30 LRN [id number]) Posture Evaluation Position Standing T-Spine Posture Increased Kyphosis L-Spine Posture Increased Lordosis Knee Posture (L) Genu Valgus,(R) Genu Valgus PT-OP-K Range of Motion Start: 10/22/20 10:34 Freq: Status: Active Protocol: Document 10/31/20 10:40 LRN (Rec: 10/31/20 11:30 LRN [id number]) Lumbar Spine Range of Motion Lumbar Spine Active Percentage Testing Position Standing Flexion 100 Extension 25 Rotation Left 75 Rotation Right 75 Lateral Flexion Left 75 Lateral Flexion Right 75 Active Degrees Testing Position Standing Flexion 90 Hip Goniometric Range of Motion Hip Right Passive Testing Position Supine Straight Leg Raise 85 Internal Rotation 30 External Rotation 60 Left Passive Testing Position Supine Straight Leg Raise 95 Internal Rotation 25 External Rotation 40 Comments Trunk rotates R with testing of hip ext PT-OP-M Strength Start: 10/22/20 10:34 Freq: Status: Active Protocol: Document 10/31/20 10:40 LRN (Rec: 10/31/20 11:30 LRN [id number]) Trunk Strength Trunk Manual Muscle Testing Core Stabilization Loss of core stability: Trunk rotates R with testing of hip ext Hip Strength Hip Manual Muscle Testing Right Flexion (L2) 5 Normal Extension (S1) 5 Normal Abduction 5 Normal Adduction 5 Normal External Rotation 5 Normal Internal Rotation 5 Normal Left Flexion (L2) 5 Normal Extension (S1) 4 Good Abduction 5 Normal Adduction 2+ Poor+ External Rotation 5 Normal Comments IR caused knee pian. PT-OP-Q Treatments Start: 10/22/20 10:34 Freq: Status: Active Protocol: Document 11/06/20 14:17 LRN (Rec: 11/06/20 15:34 LRN [id number]) Therapeutic Exercises Supine Exercises LE Roll in/out w/PF contraction Supine Exercise Name LE Roll in/out w/Deep Breathing/PF contraction Reps/Minutes 5' Comments Extra time for training Roll in/out w/Deep Breathing Supine Exercise Name LE Roll in/out w/Deep Breathing Reps/Minutes 4' Comments Extra time for training Deep Breathing Supine Exercise Name Deep Breathing Reps/Minutes 3' Manual Therapy Treatment Soft Tissue Mobilization ILU bowel massage Body Location Abdomen Mobilization Type Other Intensity/Depth Moderate Body Position Supine Self-Care/Home Management Treatment Education Patient Education Home Exercise Program Other Education Discussed at length: *Bladder diary impressions that the pt had from filling out the diary. *Pelvic and organ anatomy using handout and pelvic modal . Discussed in addition interactions with each pelvic organ. *Suggestions for food and beverages for bladder diet and discussed connection between these foods and bowels. *Discussed at great length bowel program. *Education in Deep Breathing *ILU bowel massage. Activities Self-Care/Home Management Activities Issued & reviewed handouts for : *Deep Breathing *Bowel Program *ILU Bowel Massage *LE Roll in/out w/PF contraction & deep breathing. PT-OP-T Assessment and Plan Start: 10/22/20 10:34 Freq: Status: Active Protocol: Document 11/06/20 14:17 LRN (Rec: 11/06/20 15:34 LRN [id number]) Physical Therapy Assessment Goals Three Impairment Uncontrolled flatulence Alf Goal (LTG) Pt will be able to control flatulence with transfers. LTG Duration 12/30/20 Two Impairment Urinary leakage with transfers Short Term Goal (STG) No leakage with transfers to standing. STG Duration 11/28/20 Alf Goal (LTG) Pt will be educated in self care PF strengthening exercises, for pt goal of decreasing need for PF sling surgery. LTG Duration 12/30/20 One Impairment Lacks appropriate self care program. Short Term Goal (STG) Pt will be educated in breathing techniques, transfers, body mechanics, and self care. (11/06/20: Pt educated in deep breathing, proper breathing with transfers). STG Duration 11/14/20 (11/06/20: Partially met goals) Lumber Stacker Goal (LTG) Pt will be educated in an independent self care HEP of PF strengtheniing exercises to prevent worsening prolapse symptoms. LTG Duration 12/30/20 Progress Towards Goals Progress Comments Progressed HEP. STG #1 PARTIALLY MET. Assessment Summary Assessment After verbal review of pt's bladder diary that she was able to recall, it appears the pt drinks quite a bit of caffeinated drinks; therefore bowel program and posterior PF strengthening is needed. Constipation may be a big factor in her rectocele. Physical Therapy Plan Frequency and Duration Frequency of Treatment 1x/Week Plan of Care Start Date 10/31/20 Plan of Care End Date 12/30/20 Next Visit Focus/Plan Next Note Type Treatment Note Next Visit Plan Review/discuss Bladder Diary ( 2-3 wks), review HEP: Deep Breathing, bowel program adherence, bowel massage, and transfers with proper breathing. Add education in body mechanics, and self care. Progress LE roll in/out exercises. PF strengthening ( LE roll in/out) rehab, review proper body mechanics, start education in PF care. Possible PF EMG assessment, ex's for core/hips.
--- NOTE | 2020-11-27 17:09 | PT.OTN ---
Current Diagnoses Stiffness of left hip, not elsewhere classified (11/27/20) Muscle weakness (generalized) (11/27/20) Rectocele (11/27/20) Flatulence (11/27/20) Physical Therapy Treatment Note PT-OP-A Visit Information Start: 10/22/20 10:34 Freq: Status: Active Protocol: Document 11/27/20 13:34 LRN (Rec: 11/27/20 14:18 LRN [id number]) Out-Patient Physical Therapy Visit Information Visit Information Visit Type Treatment Note Visit Start Time 13:34 Visit Stop Time 14:20 Total Visit Minutes 46 Visit Number 3 Evaluation Information Evaluation Date 10/31/20 Precautions Precautions Arthritis, Osteporosis, L meniscus tear. PT-OP-B Current Condition Start: 10/22/20 10:34 Freq: Status: Active Protocol: Document 10/31/20 10:40 LRN (Rec: 10/31/20 11:30 LRN [id number]) Current Condition History of Current Condition Onset Date 07/25/2017 Current Complaints Urinary leakage worsened in last few years. History of Current Condition No pain, but uncomfortable feels like guts are falling out. Leaks with transfers to standing and with walking to bathroom. Feels rectum is protruding through vagina wall . Sometimes trouble with constipation and was told to take Psyllium and since then has no constipation. Reports sometimes has uncontrolled flatulence and noise from pelvic floor. Prior Treatments and Tests None. Bladder Studues ([address] De La Paz in [place]: for stress incontinence, and urodynamic study done 09/30/20). Found problem not to be stress related. Future Testing and Treatments Planned None Developmental History Developmental History Progressive worsening of symptoms. Has had 2 vaginal deliveries without urinary leakage. Leakage started 3-4 yrs ago. Treatment Goals Patient/Caregiver Goals Pt goal with therapy is to avoid surgery (Bladder lift with sling). Prior Functional Status Baseline Function- ADL's Independent Baseline Function- Mobility Independent Baseline Function- Other Wears mini-pads for urinary leakage. Wears 2-3/day Current Functional Impairments (Reported) Functional Limitations- Other Hinders abilitiy to go out because of need to know where bathrooms are. Uncontrolled flatulance. Personal Factors Other Personal Factors That May Effect Arthritis, Osteporosis, L knee Therapy/Recovery menicus tear, Chronic back pain. PT-OP-C Subjective Start: 10/22/20 10:34 Freq: Status: Active Protocol: Document 11/27/20 13:34 LRN (Rec: 11/27/20 14:18 LRN [id number]) OP-PT Subjective Patient Comments Patient Comments Thinks she is doing better as noted with sit to stand (less to no leakage). Taking Psylleum and every other day fiber (vegs & fruit & more water). Having daily bowel movements. Using cream every 3 days. Hasn't leaked much, happens with cold weather or cold water running, walking to bathroom. She feels she is 40% better. Wants to get urine leakage without leaking to avoid surgery, that is what I want to do. Less feeling of falling out. PT-OP-I Pelvic Floor Start: 10/22/20 10:34 Freq: Status: Active Protocol: Document 10/31/20 10:40 LRN (Rec: 10/31/20 11:30 LRN [id number]) Pelvic Floor Assessment Urine Pelvic Floor Surgery No Urinary Symptoms Urge Sensation,Prolapse, Dribbling After Urination, Falling Out Feeling/Heavy Leakage Size Small Leakage Cause Urge Other Leakage Causes Transfers to standing. Leaks Per Day 3-4 Pads Used In 24 Hours 3-4 Urine Pad Type Panty Liner Bowel Bowel Symptoms Uncontrolled Flatulence Bowel Movement Frequency 1 [place] Stool Chart Type 1-7 4 Pelvic Clock Pelvic Clock 12-3 Tenderness Pelvic Clock 3-6 Atrophy Pelvic Clock 6-9 Atrophy Pelvic Clock 9-12 Atrophy Prolapse Cystocele Grade 1 Rectocele Grade 3 Contraction Ability Voluntary Contraction Weak Manual Muscle Testing Left 1 Manual Muscle Testing Right 3 Manual Muscle Testing Anterior 2 Manual Muscle Testing Posterior 0 Muscle Endurance (Seconds) 2 Number of Quick Contractions In 10 0 Seconds Comments Pelvic Floor Comments Able to feel Quick Flicks with 2 finger insertion, not able to feel with 1 finger insertion. PT-OP-J Posture/Palpation/Skin Start: 10/22/20 10:34 Freq: Status: Active Protocol: Document 10/31/20 10:40 LRN (Rec: 10/31/20 11:30 LRN [id number]) Posture Evaluation Position Standing T-Spine Posture Increased Kyphosis L-Spine Posture Increased Lordosis Knee Posture (L) Genu Valgus,(R) Genu Valgus PT-OP-K Range of Motion Start: 10/22/20 10:34 Freq: Status: Active Protocol: Document 10/31/20 10:40 LRN (Rec: 10/31/20 11:30 LRN [id number]) Lumbar Spine Range of Motion Lumbar Spine Active Percentage Testing Position Standing Flexion 100 Extension 25 Rotation Left 75 Rotation Right 75 Lateral Flexion Left 75 Lateral Flexion Right 75 Active Degrees Testing Position Standing Flexion 90 Hip Goniometric Range of Motion Hip Right Passive Testing Position Supine Straight Leg Raise 85 Internal Rotation 30 External Rotation 60 Left Passive Testing Position Supine Straight Leg Raise 95 Internal Rotation 25 External Rotation 40 Comments Trunk rotates R with testing of hip ext PT-OP-M Strength Start: 10/22/20 10:34 Freq: Status: Active Protocol: Document 10/31/20 10:40 LRN (Rec: 10/31/20 11:30 LRN [id number]) Trunk Strength Trunk Manual Muscle Testing Core Stabilization Loss of core stability: Trunk rotates R with testing of hip ext Hip Strength Hip Manual Muscle Testing Right Flexion (L2) 5 Normal Extension (S1) 5 Normal Abduction 5 Normal Adduction 5 Normal External Rotation 5 Normal Internal Rotation 5 Normal Left Flexion (L2) 5 Normal Extension (S1) 4 Good Abduction 5 Normal Adduction 2+ Poor+ External Rotation 5 Normal Comments IR caused knee pian. PT-OP-Q Treatments Start: 10/22/20 10:34 Freq: Status: Active Protocol: Document 11/27/20 13:34 LRN (Rec: 11/27/20 14:18 LRN [id number]) Therapeutic Exercises Supine Exercises Bridge Supine Exercise Name Bridging with and without PF contraction Reps/Minutes 5' LE Roll in/out w/PF contraction Supine Exercise Name LE Roll in/out w/Deep Breathing/PF contraction Side bilateral Reps/Minutes 8' Comments Extra With & w/o pillow under hips; time for training Roll in/out w/Deep Breathing Supine Exercise Name LE Roll in/out w/Deep Breathing Reps/Minutes 4' Comments Extra time for review Standing Exercises Squats Standing Exercise Name Squats/PF/Breath work Reps/Minutes 4' Trunk rot/arm punch/knee lifts Standing Exercise Name Trunk rot/arm punch/knee lifts /PF contract/exhale on exertion Side bilateral Reps/Minutes 4' Trunk rot punches Standing Exercise Name Trunk rot w/arm punches/ Breathing/PF contraction Side bilateral Reps/Minutes 4' Self-Care/Home Management Treatment Education Other Education Education in proper PF strengthening for movement with her ex routine. Reviewed Blader diary and discussed with pt recommended daily habit changes: increase in non-bladder irritant fluids midday vs sipping, in order to promote middya voiding. Discussed normal voiding times , frequency and nighttime voiding frequency. 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 LTG Duration 12/30/20 Two Impairment Urinary leakage with transfers Short Term Goal (STG) No leakage with transfers to standing. 11/27/20: 40% better STG Duration 11/28/20 (11/27/20: Improving) [facility] Goal (LTG) Pt will be educated in self care PF strengthening exercises, for pt goal of decreasing need for PF sling surgery. LTG Duration 12/30/20 One Impairment Lacks appropriate self care program. Short Term Goal (STG) Pt will be educated in breathing techniques, transfers, body mechanics, and self care. (11/06/20: Pt educated in deep breathing, proper breathing with transfers). STG Duration 11/14/20 (11/06/20: Partially met goals) [facility]ci Goal (LTG) Pt will be educated in an independent self care HEP of PF strengtheniing exercises to prevent worsening prolapse symptoms. LTG Duration 12/30/20 Assessment Summary Assessment Urinary leakage with urge primarily; therefore needs training on urinary delay technique to decreased leakage with sit<>stand. Her overall decrease in urinary leakage is probably due to improved bowel function. Physical Therapy Plan Frequency and Duration Frequency of Treatment 1x/Week Plan of Care Start Date 10/31/20 Plan of Care End Date 12/30/20 Next Visit Focus/Plan Next Note Type Treatment Note Next Visit Plan Review HEP: Deep Breathing, bowel program adherence, bowel massage, and transfers with proper breathing. Add education in Urinary Delay Technique, body mechanics, and self care HEP. Progress LE roll in/out rehab exercises. Education in PF care. Possible PF EMG assessment, ex 's for core/hips.
--- NOTE | 2020-12-04 14:45 | PT.OTN ---
Current Diagnoses Stiffness of left hip, not elsewhere classified (12/04/20) Muscle weakness (generalized) (12/04/20) Rectocele (12/04/20) Flatulence (12/04/20) Physical Therapy Treatment Note PT-OP-A Visit Information Start: 10/22/20 10:34 Freq: Status: Active Protocol: Document 12/04/20 13:39 LRN (Rec: 12/04/20 14:44 LRN [id number]) Out-Patient Physical Therapy Visit Information Visit Information Visit Type Treatment Note Visit Start Time 13:39 Visit Stop Time 14:19 Total Visit Minutes 40 Visit Number 4 Evaluation Information Evaluation Date 10/31/20 Precautions Precautions Arthritis, Osteporosis, L meniscus tear. PT-OP-B Current Condition Start: 10/22/20 10:34 Freq: Status: Active Protocol: Document 10/31/20 10:40 LRN (Rec: 10/31/20 11:30 LRN [id number]) Current Condition History of Current Condition Onset Date 07/25/2017 Current Complaints Urinary leakage worsened in last few years. History of Current Condition No pain, but uncomfortable feels like guts are falling out. Leaks with transfers to standing and with walking to bathroom. Feels rectum is protruding through vagina wall . Sometimes trouble with constipation and was told to take Psyllium and since then has no constipation. Reports sometimes has uncontrolled flatulence and noise from pelvic floor. Prior Treatments and Tests None. Bladder Studues ([address] De La Paz in [place]: for stress incontinence, and urodynamic study done 09/30/20). Found problem not to be stress related. Future Testing and Treatments Planned None Developmental History Developmental History Progressive worsening of symptoms. Has had 2 vaginal deliveries without urinary leakage. Leakage started 3-4 yrs ago. Treatment Goals Patient/Caregiver Goals Pt goal with therapy is to avoid surgery (Bladder lift with sling). Prior Functional Status Baseline Function- ADL's Independent Baseline Function- Mobility Independent Baseline Function- Other Wears mini-pads for urinary leakage. Wears 2-3/day Current Functional Impairments (Reported) Functional Limitations- Other Hinders abilitiy to go out because of need to know where bathrooms are. Uncontrolled flatulance. Personal Factors Other Personal Factors That May Effect Arthritis, Osteporosis, L knee Therapy/Recovery menicus tear, Chronic back pain. PT-OP-C Subjective Start: 10/22/20 10:34 Freq: Status: Active Protocol: Document 12/04/20 13:39 LRN (Rec: 12/04/20 14:44 LRN [id number]) OP-PT Subjective Patient Comments Patient Comments Thinks things are better. Not as much leakage. Back to drinking coffee. PT-OP-I Pelvic Floor Start: 10/22/20 10:34 Freq: Status: Active Protocol: Document 10/31/20 10:40 LRN (Rec: 10/31/20 11:30 LRN [id number]) Pelvic Floor Assessment Urine Pelvic Floor Surgery No Urinary Symptoms Urge Sensation,Prolapse, Dribbling After Urination, Falling Out Feeling/Heavy Leakage Size Small Leakage Cause Urge Other Leakage Causes Transfers to standing. Leaks Per Day 3-4 Pads Used In 24 Hours 3-4 Urine Pad Type Panty Liner Bowel Bowel Symptoms Uncontrolled Flatulence Bowel Movement Frequency 1 [place] Stool Chart Type 1-7 4 Pelvic Clock Pelvic Clock 12-3 Tenderness Pelvic Clock 3-6 Atrophy Pelvic Clock 6-9 Atrophy Pelvic Clock 9-12 Atrophy Prolapse Cystocele Grade 1 Rectocele Grade 3 Contraction Ability Voluntary Contraction Weak Manual Muscle Testing Left 1 Manual Muscle Testing Right 3 Manual Muscle Testing Anterior 2 Manual Muscle Testing Posterior 0 Muscle Endurance (Seconds) 2 Number of Quick Contractions In 10 0 Seconds Comments Pelvic Floor Comments Able to feel Quick Flicks with 2 finger insertion, not able to feel with 1 finger insertion. PT-OP-J Posture/Palpation/Skin Start: 10/22/20 10:34 Freq: Status: Active Protocol: Document 10/31/20 10:40 LRN (Rec: 10/31/20 11:30 LRN [id number]) Posture Evaluation Position Standing T-Spine Posture Increased Kyphosis L-Spine Posture Increased Lordosis Knee Posture (L) Genu Valgus,(R) Genu Valgus PT-OP-K Range of Motion Start: 10/22/20 10:34 Freq: Status: Active Protocol: Document 10/31/20 10:40 LRN (Rec: 10/31/20 11:30 LRN [id number]) Lumbar Spine Range of Motion Lumbar Spine Active Percentage Testing Position Standing Flexion 100 Extension 25 Rotation Left 75 Rotation Right 75 Lateral Flexion Left 75 Lateral Flexion Right 75 Active Degrees Testing Position Standing Flexion 90 Hip Goniometric Range of Motion Hip Right Passive Testing Position Supine Straight Leg Raise 85 Internal Rotation 30 External Rotation 60 Left Passive Testing Position Supine Straight Leg Raise 95 Internal Rotation 25 External Rotation 40 Comments Trunk rotates R with testing of hip ext PT-OP-M Strength Start: 10/22/20 10:34 Freq: Status: Active Protocol: Document 10/31/20 10:40 LRN (Rec: 10/31/20 11:30 LRN [id number]) Trunk Strength Trunk Manual Muscle Testing Core Stabilization Loss of core stability: Trunk rotates R with testing of hip ext Hip Strength Hip Manual Muscle Testing Right Flexion (L2) 5 Normal Extension (S1) 5 Normal Abduction 5 Normal Adduction 5 Normal External Rotation 5 Normal Internal Rotation 5 Normal Left Flexion (L2) 5 Normal Extension (S1) 4 Good Abduction 5 Normal Adduction 2+ Poor+ External Rotation 5 Normal Comments IR caused knee pian. PT-OP-Q Treatments Start: 10/22/20 10:34 Freq: Status: Active Protocol: Document 12/04/20 13:39 LRN (Rec: 12/04/20 14:44 LRN [id number]) Therapeutic Exercises Supine Exercises LE Roll in/out w/PF contraction Supine Exercise Name LE Roll in/out w/Deep Breathing/PF contraction Side bilateral Reps/Minutes 6' Comments Extra With & w/o pillow under hips; time for training Roll in/out w/Deep Breathing Supine Exercise Name LE Roll in/out w/Deep Breathing Reps/Minutes 3' Comments Extra time for review Deep Breathing Supine Exercise Name Deep Breathing Reps/Minutes 3' Therapeutic Activity Therapeutic Activity Proper breathing with transfers/body mechanics Name Proper breathing w/transfer/ body mechanics Reps/Minutes 17' Comments Education and practice with verbal cuing throughout practice of: sit<> stand, sit <>supine, stand<>squat, stand< > forward bending. Self-Care/Home Management Treatment Education Patient Education Body Mechanics,Home Exercise Program Other Education Educated pt in urge deference techique with explanation of PF contraction and deep breathing techniques used, also discussed variances reasons for urges and when it may work better or worse. Reviewed bladder irritant type of fluids and appropriate influid intake volumes associated with pt's weight and in relation to exercise. Educated pt in proper breathing habits for bike riding and discussed sit position on bike seat to minimize stress on PF. Educated pt in repositioning of bladder using gravity ( hamstring stretch position) prior to sitting to minimize feeling of sitting on bladder. Activities Self-Care/Home Management Activities Issued & reviewed Urge deference technique and deep breathing ex. Pt I/S to improve awareness of urge sensation, drinking of more non-bladder irritant fluids. PT-OP-T Assessment and Plan Start: 10/22/20 10:34 Freq: Status: Active Protocol: Document 12/04/20 13:39 LRN (Rec: 12/04/20 14:44 LRN [id number]) Physical Therapy Assessment Goals Three Impairment Uncontrolled flatulence Retirement Goal (LTG) Pt will be able to control flatulence with transfers. LTG Duration 12/30/20 Two Impairment Urinary leakage with transfers Short Term Goal (STG) No leakage with transfers to standing. 11/27/20: 40% better STG Duration 11/28/20 (11/27/20: Improving) Retirement Goal (LTG) Pt will be educated in self care PF strengthening exercises, for pt goal of decreasing need for PF sling surgery. LTG Duration 12/30/20 One Impairment Lacks appropriate self care program. Short Term Goal (STG) Pt will be educated in breathing techniques, transfers, body mechanics, and self care. (12/04/20: Reviewed deep breathing, proper breathing with transfers). STG Duration 11/14/20 (12/04/20: Partially met goals) Set Off Blocker Goal (LTG) Pt will be educated in an independent self care HEP of PF strengtheniing exercises to prevent worsening prolapse symptoms. LTG Duration 12/30/20 Assessment Summary Assessment Pt choosing to continue coffee in AM. Her voiding periods are mostly every 2-3 hours with leakage almost always at 11p; therefore bladder retraining is needed. Further bladder retraining during the day may help pt to decrease leakage, but further PF strengthening is needed in posterior>anterior and L lateral wall. Pt starting bike riding for exercise for the summer and appears to have a good understanding of how to sit on seat for lessening of PF stress and is able to sit upright. Physical Therapy Plan Frequency and Duration Frequency of Treatment 1x/Week Plan of Care Start Date 10/31/20 Plan of Care End Date 12/30/20 Next Visit Focus/Plan Next Note Type Treatment Note Next Visit Plan Review urge deference technique. Add PF self care I /S. Progress LE roll in/out rehab exercises, focus on posterior (0/5), left(1/5) and anterior (2/5 PF . Possible PF EMG assessment, ex's for core/hips.
--- NOTE | 2020-12-09 16:02 | PT.OTN ---
Current Diagnoses Stiffness of left hip, not elsewhere classified (12/09/20) Muscle weakness (generalized) (12/09/20) Rectocele (12/09/20) Flatulence (12/09/20) Physical Therapy Treatment Note PT-OP-A Visit Information Start: 10/22/20 10:34 Freq: Status: Active Protocol: Document 12/09/20 13:39 LRN (Rec: 12/09/20 15:59 LRN [id number]) Out-Patient Physical Therapy Visit Information Visit Information Visit Type Treatment Note Visit Start Time 13:39 Visit Stop Time 14:17 Total Visit Minutes 38 Visit Number 5 Evaluation Information Evaluation Date 10/31/20 Precautions Precautions Arthritis, Osteporosis, L meniscus tear. PT-OP-B Current Condition Start: 10/22/20 10:34 Freq: Status: Active Protocol: Document 10/31/20 10:40 LRN (Rec: 10/31/20 11:30 LRN [id number]) Current Condition History of Current Condition Onset Date 07/25/2017 Current Complaints Urinary leakage worsened in last few years. History of Current Condition No pain, but uncomfortable feels like guts are falling out. Leaks with transfers to standing and with walking to bathroom. Feels rectum is protruding through vagina wall . Sometimes trouble with constipation and was told to take Psyllium and since then has no constipation. Reports sometimes has uncontrolled flatulence and noise from pelvic floor. Prior Treatments and Tests None. Bladder Studues ([address] De La Paz in [place]: for stress incontinence, and urodynamic study done 09/30/20). Found problem not to be stress related. Future Testing and Treatments Planned None Developmental History Developmental History Progressive worsening of symptoms. Has had 2 vaginal deliveries without urinary leakage. Leakage started 3-4 yrs ago. Treatment Goals Patient/Caregiver Goals Pt goal with therapy is to avoid surgery (Bladder lift with sling). Prior Functional Status Baseline Function- ADL's Independent Baseline Function- Mobility Independent Baseline Function- Other Wears mini-pads for urinary leakage. Wears 2-3/day Current Functional Impairments (Reported) Functional Limitations- Other Hinders abilitiy to go out because of need to know where bathrooms are. Uncontrolled flatulance. Personal Factors Other Personal Factors That May Effect Arthritis, Osteporosis, L knee Therapy/Recovery menicus tear, Chronic back pain. PT-OP-C Subjective Start: 10/22/20 10:34 Freq: Status: Active Protocol: Document 12/09/20 13:39 LRN (Rec: 12/09/20 15:59 LRN [id number]) OP-PT Subjective Patient Comments Patient Comments Bike rode 20 miles a few days ago. Up at night x2 going to the bathroom, therefore drinking enough water. Bowels are fine. PT-OP-I Pelvic Floor Start: 10/22/20 10:34 Freq: Status: Active Protocol: Document 10/31/20 10:40 LRN (Rec: 10/31/20 11:30 LRN [id number]) Pelvic Floor Assessment Urine Pelvic Floor Surgery No Urinary Symptoms Urge Sensation,Prolapse, Dribbling After Urination, Falling Out Feeling/Heavy Leakage Size Small Leakage Cause Urge Other Leakage Causes Transfers to standing. Leaks Per Day 3-4 Pads Used In 24 Hours 3-4 Urine Pad Type Panty Liner Bowel Bowel Symptoms Uncontrolled Flatulence Bowel Movement Frequency 1 [place] Stool Chart Type 1-7 4 Pelvic Clock Pelvic Clock 12-3 Tenderness Pelvic Clock 3-6 Atrophy Pelvic Clock 6-9 Atrophy Pelvic Clock 9-12 Atrophy Prolapse Cystocele Grade 1 Rectocele Grade 3 Contraction Ability Voluntary Contraction Weak Manual Muscle Testing Left 1 Manual Muscle Testing Right 3 Manual Muscle Testing Anterior 2 Manual Muscle Testing Posterior 0 Muscle Endurance (Seconds) 2 Number of Quick Contractions In 10 0 Seconds Comments Pelvic Floor Comments Able to feel Quick Flicks with 2 finger insertion, not able to feel with 1 finger insertion. PT-OP-J Posture/Palpation/Skin Start: 10/22/20 10:34 Freq: Status: Active Protocol: Document 10/31/20 10:40 LRN (Rec: 10/31/20 11:30 LRN [id number]) Posture Evaluation Position Standing T-Spine Posture Increased Kyphosis L-Spine Posture Increased Lordosis Knee Posture (L) Genu Valgus,(R) Genu Valgus PT-OP-K Range of Motion Start: 10/22/20 10:34 Freq: Status: Active Protocol: Document 10/31/20 10:40 LRN (Rec: 10/31/20 11:30 LRN [id number]) Lumbar Spine Range of Motion Lumbar Spine Active Percentage Testing Position Standing Flexion 100 Extension 25 Rotation Left 75 Rotation Right 75 Lateral Flexion Left 75 Lateral Flexion Right 75 Active Degrees Testing Position Standing Flexion 90 Hip Goniometric Range of Motion Hip Right Passive Testing Position Supine Straight Leg Raise 85 Internal Rotation 30 External Rotation 60 Left Passive Testing Position Supine Straight Leg Raise 95 Internal Rotation 25 External Rotation 40 Comments Trunk rotates R with testing of hip ext PT-OP-M Strength Start: 10/22/20 10:34 Freq: Status: Active Protocol: Document 10/31/20 10:40 LRN (Rec: 10/31/20 11:30 LRN [id number]) Trunk Strength Trunk Manual Muscle Testing Core Stabilization Loss of core stability: Trunk rotates R with testing of hip ext Hip Strength Hip Manual Muscle Testing Right Flexion (L2) 5 Normal Extension (S1) 5 Normal Abduction 5 Normal Adduction 5 Normal External Rotation 5 Normal Internal Rotation 5 Normal Left Flexion (L2) 5 Normal Extension (S1) 4 Good Abduction 5 Normal Adduction 2+ Poor+ External Rotation 5 Normal Comments IR caused knee pian. PT-OP-Q Treatments Start: 10/22/20 10:34 Freq: Status: Active Protocol: Document 12/09/20 13:39 LRN (Rec: 12/09/20 15:59 LRN [id number]) Therapeutic Exercises Supine Exercises LE Roll in/out heels off wall Supine Exercise Name Heels off imaginary wall Roll in/outs Side bilateral Equipment Used Manual assist to hold legs in an on the wall position Reps/Minutes 4-5x stopped due to hip flexor muscle cramp Comments Extra time needed for positioning and much v cuing needed t Bridge Supine Exercise Name Bridging with and without PF contraction Equipment Used Lev 2 TBand Reps/Minutes 6' LE Roll in/out w/PF contraction Supine Exercise Name LE Roll in/out w/Deep Breathing/PF contraction Side bilateral Resistance Without & with Lev 2 TB Reps/Minutes 12' Comments Extra With & w/o pillow under hips; time for training Roll in/out w/Deep Breathing Supine Exercise Name LE Roll in/out w/Deep Breathing Reps/Minutes 2' Sitting Exercises Hamstring/LE neural stretch Sitting Exercise Name Hamstring/LE neural stretch Side bilateral Reps/Minutes 8' Comments Extra time to find max position of stretch. RLE tighter than LLE. Self-Care/Home Management Treatment Education Patient Education Home Exercise Program Other Education Discussed use of Urge deference technique in allowing pt to make it to BR without leaking. Pt noted it was helpful. Discussed bike seating position and awareness of not stretching of vaginal canal while on bike seat & discussed proper breathing during cycling at times of stress/ force. Activities Self-Care/Home Management Activities Issued Lev 2 Band for HEP of LE roll in/out. Issued Lev 2 Tband. PT-OP-T Assessment and Plan Start: 10/22/20 10:34 Freq: Status: Active Protocol: Document 12/09/20 13:39 LRN (Rec: 12/09/20 15:59 LRN [id number]) Physical Therapy Assessment Goals Three Impairment Uncontrolled flatulence Pilot Teacher Goal (LTG) Pt will be able to control flatulence with transfers. LTG Duration 12/30/20 Two Impairment Urinary leakage with transfers Short Term Goal (STG) No leakage with transfers to standing. (12/09/20: No leakage with transfers) STG Duration 11/28/20 (12/09/20: MET GOAL) Pilot Teacher Goal (LTG) Pt will be educated in self care PF strengthening exercises, for pt goal of decreasing need for PF sling surgery. (12/09/20: LE roll in/out phase I program initiated) LTG Duration 12/30/20 (12/09/20: Progressing) One Impairment Lacks appropriate self care program. Short Term Goal (STG) Pt will be educated in breathing techniques, transfers, body mechanics, and self care. (12/04/20: Reviewed deep breathing, proper breathing with transfers). STG Duration 11/14/20 (12/04/20: Partially met goals) [facility] Goal (LTG) Pt will be educated in an independent self care HEP of PF strengtheniing exercises to prevent worsening prolapse symptoms. LTG Duration 12/30/20 Progress Towards Goals Progress Comments No leakage with transfers. Assessment Summary Assessment Pt improved in level of continence. Urge deference technique has been very helpful in avoiding urinary leakage. Flatulence is mildly present. Pt feeling very good about where she is in her therapy and is feeling she is amost ready for discharge. Feeling confident what she has learned what will help her to avoid rectal surgery for her rectocele. Physical Therapy Plan Frequency and Duration Frequency of Treatment 1x/Week Plan of Care Start Date 10/31/20 Plan of Care End Date 12/30/20 Next Visit Focus/Plan Next Note Type Treatment Note Next Visit Plan Possible DC next visit. Discuss general PF self care and as related to rectocele. Add L sided/posterior PF strengthening. Progress LE roll in/out rehab exercises, focus on posterior (0/5), left (1/5) and anterior (2/5) PF strengthening. Ex's for core/ hips if pt chooses to continue therapy.
--- NOTE | 2020-12-18 13:54 | PT.OTN ---
Current Diagnoses Stiffness of left hip, not elsewhere classified (12/18/20) Muscle weakness (generalized) (12/18/20) Rectocele (12/18/20) Flatulence (12/18/20) Physical Therapy Treatment Note PT-OP-A Visit Information Start: 10/22/20 10:34 Freq: Status: Active Protocol: Document 12/18/20 12:49 LRN (Rec: 12/18/20 13:51 LRN [id number]) Out-Patient Physical Therapy Visit Information Visit Information Visit Type Treatment Note Visit Start Time 12:49 Visit Stop Time 13:35 Total Visit Minutes 46 Visit Number 6 Evaluation Information Evaluation Date 10/31/20 Precautions Precautions Arthritis, Osteporosis, L meniscus tear. PT-OP-B Current Condition Start: 10/22/20 10:34 Freq: Status: Active Protocol: Document 10/31/20 10:40 LRN (Rec: 10/31/20 11:30 LRN [id number]) Current Condition History of Current Condition Onset Date 07/25/2017 Current Complaints Urinary leakage worsened in last few years. History of Current Condition No pain, but uncomfortable feels like guts are falling out. Leaks with transfers to standing and with walking to bathroom. Feels rectum is protruding through vagina wall . Sometimes trouble with constipation and was told to take Psyllium and since then has no constipation. Reports sometimes has uncontrolled flatulence and noise from pelvic floor. Prior Treatments and Tests None. Bladder Studues ([address] De La Paz in [place]: for stress incontinence, and urodynamic study done 09/30/20). Found problem not to be stress related. Future Testing and Treatments Planned None Developmental History Developmental History Progressive worsening of symptoms. Has had 2 vaginal deliveries without urinary leakage. Leakage started 3-4 yrs ago. Treatment Goals Patient/Caregiver Goals Pt goal with therapy is to avoid surgery (Bladder lift with sling). Prior Functional Status Baseline Function- ADL's Independent Baseline Function- Mobility Independent Baseline Function- Other Wears mini-pads for urinary leakage. Wears 2-3/day Current Functional Impairments (Reported) Functional Limitations- Other Hinders abilitiy to go out because of need to know where bathrooms are. Uncontrolled flatulance. Personal Factors Other Personal Factors That May Effect Arthritis, Osteporosis, L knee Therapy/Recovery menicus tear, Chronic back pain. PT-OP-C Subjective Start: 10/22/20 10:34 Freq: Status: Active Protocol: Document 12/18/20 12:49 LRN (Rec: 12/18/20 13:51 LRN [id number]) OP-PT Subjective Patient Comments Patient Comments Better but not as good as she had hoped. Drinking more water and going more and leaked a little. Improved bowel movements 2x/day. Thinks she is better able to hold her flatulence. States she feels she has learned what she wanted to in order to avoid a surgery; therefore ready for discharge from physical therapy. PT-OP-I Pelvic Floor Start: 10/22/20 10:34 Freq: Status: Active Protocol: Document 10/31/20 10:40 LRN (Rec: 10/31/20 11:30 LRN [id number]) Pelvic Floor Assessment Urine Pelvic Floor Surgery No Urinary Symptoms Urge Sensation,Prolapse, Dribbling After Urination, Falling Out Feeling/Heavy Leakage Size Small Leakage Cause Urge Other Leakage Causes Transfers to standing. Leaks Per Day 3-4 Pads Used In 24 Hours 3-4 Urine Pad Type Panty Liner Bowel Bowel Symptoms Uncontrolled Flatulence Bowel Movement Frequency 1 [place] Stool Chart Type 1-7 4 Pelvic Clock Pelvic Clock 12-3 Tenderness Pelvic Clock 3-6 Atrophy Pelvic Clock 6-9 Atrophy Pelvic Clock 9-12 Atrophy Prolapse Cystocele Grade 1 Rectocele Grade 3 Contraction Ability Voluntary Contraction Weak Manual Muscle Testing Left 1 Manual Muscle Testing Right 3 Manual Muscle Testing Anterior 2 Manual Muscle Testing Posterior 0 Muscle Endurance (Seconds) 2 Number of Quick Contractions In 10 0 Seconds Comments Pelvic Floor Comments Able to feel Quick Flicks with 2 finger insertion, not able to feel with 1 finger insertion. PT-OP-J Posture/Palpation/Skin Start: 10/22/20 10:34 Freq: Status: Active Protocol: Document 10/31/20 10:40 LRN (Rec: 10/31/20 11:30 LRN [id number]) Posture Evaluation Position Standing T-Spine Posture Increased Kyphosis L-Spine Posture Increased Lordosis Knee Posture (L) Genu Valgus,(R) Genu Valgus PT-OP-K Range of Motion Start: 10/22/20 10:34 Freq: Status: Active Protocol: Document 10/31/20 10:40 LRN (Rec: 10/31/20 11:30 LRN [id number]) Lumbar Spine Range of Motion Lumbar Spine Active Percentage Testing Position Standing Flexion 100 Extension 25 Rotation Left 75 Rotation Right 75 Lateral Flexion Left 75 Lateral Flexion Right 75 Active Degrees Testing Position Standing Flexion 90 Hip Goniometric Range of Motion Hip Right Passive Testing Position Supine Straight Leg Raise 85 Internal Rotation 30 External Rotation 60 Left Passive Testing Position Supine Straight Leg Raise 95 Internal Rotation 25 External Rotation 40 Comments Trunk rotates R with testing of hip ext PT-OP-M Strength Start: 10/22/20 10:34 Freq: Status: Active Protocol: Document 10/31/20 10:40 LRN (Rec: 10/31/20 11:30 LRN [id number]) Trunk Strength Trunk Manual Muscle Testing Core Stabilization Loss of core stability: Trunk rotates R with testing of hip ext Hip Strength Hip Manual Muscle Testing Right Flexion (L2) 5 Normal Extension (S1) 5 Normal Abduction 5 Normal Adduction 5 Normal External Rotation 5 Normal Internal Rotation 5 Normal Left Flexion (L2) 5 Normal Extension (S1) 4 Good Abduction 5 Normal Adduction 2+ Poor+ External Rotation 5 Normal Comments IR caused knee pian. PT-OP-Q Treatments Start: 10/22/20 10:34 Freq: Status: Active Protocol: Document 12/18/20 12:49 LRN (Rec: 12/18/20 13:51 LRN [id number]) Therapeutic Exercises Supine Exercises Bridge Supine Exercise Name Bridge w/pillow under hips & w /TBand and w/Pillow squeeze Equipment Used Lev 2 TBand & Pillow under hips and btn knees Reps/Minutes 10' Sidelying Exercises Reverse Clamshell Sidelying Exercise Name Reverse clamshell w/PF contraction Side bilateral Equipment Used Lev 2 TB Comments 4' Clamshell Sidelying Exercise Name Clamshell w/PF contraction Side bilateral Equipment Used Lev 2 TB Reps/Minutes 10x 3 Comments 6' Self-Care/Home Management Treatment Education Patient Education Home Exercise Program Other Education Reviewed/discussed urinary urge deference technique with pt to clarify how to use the technique to prevent urinary leakage with an urge. Pt educated and discussed at length: PF care & genital hygiene. Activities Self-Care/Home Management Activities Handout issued for PF care & genital hygiene. Issued & reviewed HEP: Clamshell/PF Reverse Clamshell/PF Bridge with TBand/PF Bridge with ball squeeze/PF PT-OP-T Assessment and Plan Start: 10/22/20 10:34 Freq: Status: Active Protocol: Document 12/18/20 12:49 LRN (Rec: 12/18/20 13:51 LRN [id number]) Physical Therapy Assessment Goals Three Impairment Uncontrolled flatulence [employer] Goal (LTG) Pt will be able to control flatulence with transfers. (12/18/20: No uncontrolled flatulence in clinic) LTG Duration 12/30/20 (12/18/20: MET GOAL in clinlic) Two Impairment Urinary leakage with transfers Short Term Goal (STG) No leakage with transfers to standing. (12/18/20: No Leakage with transfer, but 2x heading to bathroom) STG Duration 11/28/20 (12/18/20: MET GOAL) [facility] Goal (LTG) Pt will be educated in self care PF strengthening exercises, for pt goal of decreasing need for PF sling surgery. (12/09/20: LE roll in/out phase I program initiated) LTG Duration 12/30/20 (12/18/20: MET GOAL) One Impairment Lacks appropriate self care program. Short Term Goal (STG) Pt will be educated in breathing techniques, transfers, body mechanics, and self care. (12/18/20: Pt educated on proper PF self care). STG Duration 11/14/20 (12/18/20: MET GOAL) [facility] Goal (LTG) Pt will be educated in an independent self care HEP of PF strengtheniing exercises to prevent worsening prolapse symptoms. LTG Duration 12/30/20 (12/18/20: MET GOAL ) Progress Towards Goals Progress Comments Goals met, although further ex and HEP could be taught. Assessment Summary Assessment Pt has reportedly improved with holding flatulence and urinary leakage, leaking only 2 times since last appt. Pt found to be doing the urinary urge technique improperly, but today appears to have a good understanding of how to use it to avoid leakage. Pt very receptive to PF care and hygiene education, as well as in her own self care HEP. Pt is happy with what she has learned and feels DC to HEP is appropriate. Physical Therapy Plan Frequency and Duration Frequency of Treatment 1x/Week Plan of Care Start Date 10/31/20 Plan of Care End Date 12/30/20 Discharge Physical Therapy Discharge Reasons Patient Request Discharge Comments The pt would probably benefit from further skilled physical therapy for PF rehabilitation and HEP progression to strengthen the PF and core, but the pt is happy with what she has learned and the improvements she has made thus far. Pt requested discharge from therapy.
== END 2020-12-19 07:47 | disposition home or self-care (01) ==
LOC: PHYS 12:45
PROVIDERS: Family Provider Physician Assistant; PCP Physician Assistant; Referring Provider Urology; Visit Provider Urology
DX: N81.6 Rectocele (principal); M62.81 Muscle weakness (generalized); M25.652 Stiffness of left hip, not elsewhere classified; R14.3 Flatulence
CPT/HCPCS: 97110; 97162; 97530; 97535

== ENCOUNTER → 2021-02-24 14:52 | Outpatient (CLI) | payer OTHER, SELFPAY ==
--- NOTE | 2021-02-24 14:54 | DI.MG.S_ITS ---
BILATERAL DIGITAL SCREENING MAMMOGRAM 3D/2D WITH CAD: 02/24/2021 CLINICAL: Routine screening. Family history of breast cancer. Comparison is made to exams dated: 02/19/2020 mammogram, 01/23/2019 mammogram, and 01/13/2018 mammogram - [facility]. There are scattered fibroglandular elements in both breasts. Current study was also evaluated with a Computer Aided Detection (CAD) system. There are mole markers on both breasts. No significant masses, calcifications, or other findings are seen in either breast. There has been no significant interval change. IMPRESSION: NEGATIVE There is no mammographic evidence of malignancy. A 1 year screening mammogram is recommended. This exam was interpreted at Station ID: [id number]. NOTE: For mammograms, a report in lay terms will be sent to the patient. Approximately 15% of breast malignancies will not be visualized mammographically. In the management of a palpable breast mass, a negative mammogram must not discourage biopsy of a clinically suspicious lesion. Electronically Signed By: Neo Harrison acr/veronica:02/24/2021 15:31:44 letter sent: Normal Exam ACR BI-RADS Category 1: Negative [id number]
== END ==
PROVIDERS: Family Provider Physician Assistant; PCP Physician Assistant; Referring Provider Physician Assistant; Visit Provider Physician Assistant
DX: Z12.31 Encounter for screening mammogram for malignant neoplasm of breast (principal); Z80.3 Family history of malignant neoplasm of breast
CPT/HCPCS: 77063; 77067

== ENCOUNTER 2021-09-08 15:10 | Emergency (ER) | payer OTHER, SELFPAY ==
[2021-09-08 15:24] VITALS: BP 157/95; PULSE 83; RESP 18; TEMP 36.6; O2SAT 99
[2021-09-08 15:49] LABS: Add Manual Diff / Slide Review NO; Basophils Absolute Auto 100 /uL (0-100); Basophils Percent Auto 0.8 % (0-2); Eosinophils Absolute Auto 100 /uL (0-450); Eosinophils Percent Auto 0.5 % (2-4); Hematocrit 38.2 % (36-46); Hemoglobin 12.9 g/dL (12.0-16.0); Lymphocytes Absolute Auto 2400 /uL (1100-4500); Lymphocytes Percent Auto 17.8 % (25-40); Mean Corpuscular HGB Conc 33.8 % (30-36); Mean Corpuscular Volume 88.7 fL (80-100); Monocytes Absolute Auto 800 /uL (0-900); Monocytes Percent Auto 6.3 % (3-14); Neutrophils Absolute Auto 10100 /uL (1500-7000); Neutrophils Percent Auto 74.6 % (50-75); Platelet Count 273 X10^3/uL (150-400); Red Blood Cell Count 4.31 X10^6/uL (4.0-5.2); Red Cell Distribution Width 13.8 % (11.6-14.8); White Blood Cell Count 13.5 X10^3/uL (4.5-11.0)
[2021-09-08 16:12] LABS: Alanine Aminotransferase 18 IU/L (<35); Albumin 4.6 g/dL (3.5-5.0); Albumin Globulin Ratio 1.4 (1.0-2.8); Alkaline Phosphatase 97 U/L (38-126); Aspartate Aminotransferase 33 IU/L (14-36); BUN Creatinine Ratio 13.3 (6-22); Bilirubin Total 0.6 mg/dL (0.2-1.3); Blood Urea Nitrogen 11 mg/dL (7-17); Carbon Dioxide 30 mmol/L (22-32); Chloride 100 mmol/L (98-107); Estimated Glomerular Filt Rate > 60.0 mL/min (>60); Globulin 3.3 g/dL (1.7-4.1); Glucose 96 mg/dL (80-110); HEMOLYSIS < 15 (0-50); Lipase 38 U/L (23-300); Potassium 3.4 mmol/L (3.4-5.1); Sodium 137 mmol/L (137-145); Total Protein 7.9 g/dL (6.3-8.2)
--- NOTE | 2021-09-08 18:30 | DI.CT.S_ITS ---
PROCEDURE: CT ABDOMEN PELVIS W CON INDICATIONS: abd pain TECHNIQUE: After the administration of intravenous contrast, axial sections acquired from the lung bases to the pubic symphysis. Coronal and sagittal reformats were performed. For radiation dose reduction, the following was used: automated exposure control, adjustment of mA and/or kV according to patient size. COMPARISON: None. FINDINGS: Image quality: Excellent. Lung bases: A calcified granuloma is seen at the right lung base. Small hiatal hernia. Heart: No significant findings. ABDOMEN: Liver: A 2.9 x 2.0 cm heterogeneously hyperenhancing lesion at the inferior right hepatic lobe is nonspecific, but may represent a hemangioma. Gallbladder: Unremarkable. Biliary ducts: Unremarkable. Pancreas: Unremarkable. Spleen: Coarse calcifications in the spleen are most likely secondary to prior granulomatous disease. Adrenal Glands: Unremarkable. Kidneys and Ureters: Unremarkable. Stomach and Bowel: Multiple diverticula are seen in the colon. There is bowel wall thickening and inflammatory fat stranding surrounding a diverticulum of the junction of the descending and sigmoid colon. No pneumoperitoneum. Trace reactive fluid is seen without an abscess. No signs of bowel obstruction. Peritoneum: No significant ascites. No free air. Ventral Wall: No hernias. Abdominal Nodes: No retroperitoneal or mesenteric adenopathy by size criteria. Vessels: Aorta and inferior vena cava are normal in size. Mild aortic atherosclerosis. PELVIS: Pelvic Organs: Status post hysterectomy. Mild prolapse of perirectal or peritoneal fat is seen into the perineum. Bladder: Unremarkable. Pelvic Nodes: No enlarged lymph nodes. Miscellaneous: No hernias are seen. Bones: Mild degenerative changes are seen in the spine. Mild levoconvex curvature of the spine. IMPRESSION: 1. Acute uncomplicated diverticulitis at the junction of the sigmoid and descending colon. 2. Nonspecific heterogeneously enhancing 2.9 cm lesion in the inferior right hepatic lobe is most likely a benign hemangioma. Recommend liver protocol MRI or CT for further evaluation, which may be obtained on an non urgent outpatient basis. 3. Small hiatal hernia. Dictated by: Ryan Kang M.D. on 09/08/2021 at 19:13 Approved by: Ryan Kang M.D. on 09/08/2021 at 19:18
--- NOTE | 2021-09-08 18:33 | ED.ABDPAIN ---
HPI - Abdominal Pain General Chief Complaint: Abdominal Pain Stated Complaint: sent for CT - diverticulitis Time Seen by Provider: 09/08/21 18:30 Source: patient Mode of arrival: Ambulatory Limitations: no limitations History of Present Illness HPI narrative: This is a 76-year-old female sent for left lower quadrant pain which has been present for 6-8 weeks. She states it was mild but has been increasing in intensity. She had some radiation to the back but that was for short period of time. She has not any fevers. She had chills for 2 nights. She has had some nausea but no vomiting. She has pain just before having a bowel movement in the left lower quadrant which she describes as sharp. Patient states she has had looser stools than her normal constipation. No black or bloody stools. No dysuria urgency or frequency. No vaginal bleeding or discharge. Patient has history of hypertension and dyslipidemia she has a history of total hysterectomy for endometriosis. She suspects she may have diverticulitis but she has never had before. No tobacco, occasional alcohol, patient denies illicit. Patient's PCP is Kathia Titus. Related Data Home Medications Medication Instructions Recorded Confirmed cholecalciferol (vitamin D3) 10 10 mcg PO DAILY 01/10/20 09/08/21 mcg/drop (400 unit/drop) oral drops (Baby Vitamin D3) coenzyme Q10 75 mg capsule (Ultra 300 mg PO DAILY cap 01/10/20 09/08/21 CoQ10) hydrochlorothiazide 12.5 mg capsule 12.5 mg PO DAILY 01/10/20 09/08/21 krill oil 500 mg capsule 1 mg PO DAILY 01/10/20 09/08/21 lactobacillus combination no.9 4 4,000 mmu cells PO DAILY 01/10/20 09/08/21 billion cell capsule (Adult 50 Plus Probiotic) lisinopril 20 mg tablet 20 mg PO DAILY 01/10/20 09/08/21 metoprolol succinate 25 mg capsule 25 mg PO DAILY 01/10/20 09/08/21 sprinkle, ext. release 24 hr omeprazole 20 mg capsule,delayed 20 mg PO DAILY 01/10/20 09/08/21 release simvastatin 10 mg tablet 10 mg PO DAILY 01/10/20 09/08/21 Previous Rx's Medication Instructions Recorded amoxicillin 875 mg-potassium 1 tab PO Q12H #20 tab 09/08/21 clavulanate 125 mg tablet (Augmentin) Allergies Allergy/AdvReac Type Severity Reaction Status Date / Time No Known Drug Allergies Allergy Verified 03/04/20 12:30 Review of Systems Review of Systems ROS Unobtainable: All systems reviewed & are unremarkable except as noted in HPI and below Patient History Medical History (Updated 09/08/21 @ 19:37 by Stephanie Steve DO) Vera esophagus High cholesterol HTN (hypertension) Surgical History History of cardiac radiofrequency ablation Hx of hysterectomy Family History Mother Hypertension Father Heart disease Sister Cancer Social History marital status: household members: spouse Smoking Status: Never smoker alcohol intake: current substance use type: does not use Smoking Status: Never smoker alcohol intake frequency: holidays/special occasions only Substance Use Type: crack/cocaine Exam Narrative Exam Narrative: GENERAL: Alert and oriented x three, female in mild distress. HEENT: Head normocephalic, atraumatic, EOMI, pupils reactive, face symmetric, moist mucous membranes NECK: Supple, full range of motion CARDIOVASCULAR: Regular rate and rhythm without murmurs, rubs or gallops. RESPIRATORY: Breath sounds equal bilaterally, no wheezes rales or rhonchi. ABDOMEN: Soft, positive for left upper and left lower quadrant tenderness. Nondistended. Bowel sounds all 4 quadrants. No guarding or rebound, rigidity, no mass : No CVA tenderness EXTREMITIES: Normal range of motion, no clubbing or edema. Neurovascularly intact NEUROLOGICAL: Cranial nerves II through XII grossly intact. Moving all extremities SKIN: Warm, dry, no petechiae, no rashes or lesions. Initial Vital Signs Initial Vital Signs: Vital Signs Temperature 97.9 F 09/08/21 15:24 Pulse Rate 83 09/08/21 15:24 Respiratory Rate 18 09/08/21 15:24 Blood Pressure 157/95 H 09/08/21 15:24 Pulse Oximetry 99 09/08/21 15:24 Course Orders Ordered: ED Orders 09/08/21 18:45 Urine Microscopic Stat Discontinued Medications Amoxicillin/Clavulanate Potassium (Amoxicillin/Clav 875/125 Mg) 1 tab PO NOW ONE Stop: 09/08/21 19:47 Last Admin: 09/08/21 19:54 Dose: 1 tab Documented by: SHAHAB Vital Signs Vital signs: Vital Signs - 8 hr 09/08/21 20:01 Pulse Rate 86 Respiratory Rate 18 Blood Pressure 180/75 H Pulse Oximetry 98 MDM - Abdominal Pain Lab Data Result diagrams: 09/08/21 15:35 09/08/21 15:35 Labs: Lab Results 09/08/21 09/08/21 09/08/21 Range/Units 15:35 15:35 18:45 WBC 13.5 H (4.5-11.0) X10^3/uL RBC 4.31 (4.0-5.2) X10^6/uL Hgb 12.9 (12.0-16.0) g/dL Hct 38.2 (36-46) % MCV 88.7 (80-100) fL MCH 30.0 (26-34) PG MCHC 33.8 (30-36) % RDW 13.8 (11.6-14.8) % Plt Count 273 (150-400) X10^3/uL Neut % (Auto) 74.6 (50-75) % Lymph % (Auto) 17.8 L (25-40) % [place] % (Auto) 6.3 (3-14) % Eos % (Auto) 0.5 L (2-4) % Baso % (Auto) 0.8 (0-2) % Neut # (Auto) 99704 H (1592-3658) /uL Lymph # (Auto) 2400 (3456-6227) /uL [place] # (Auto) 800 (0-900) /uL Eos # (Auto) 100 (0-450) /uL Baso # (Auto) 100 (0-100) /uL Sodium 137 (137-145) mmol/L Potassium 3.4 (3.4-5.1) mmol/L Chloride 100 (98-107) mmol/L Carbon Dioxide 30 (22-32) mmol/L BUN 11 (7-17) mg/dL Creatinine 0.83 (0.52-1.04) mg/dL Estimated GFR > 60.0 (>60) mL/min BUN/Creatinine Ratio 13.3 (6-22) Glucose 96 (80-110) mg/dL Calcium 10.0 (8.4-10.2) mg/dL Total Bilirubin 0.6 (0.2-1.3) mg/dL AST 33 (14-36) IU/L ALT 18 (<35) IU/L Alkaline Phosphatase 97 (38-126) U/L Total Protein 7.9 (6.3-8.2) g/dL Albumin 4.6 (3.5-5.0) g/dL Globulin 3.3 (1.7-4.1) g/dL Albumin/Globulin Ratio 1.4 (1.0-2.8) Lipase 38 (23-300) U/L Urine RBC 0-1/hpf (0-5/HPF) Urine WBC 0-1/hpf (0-5/HPF) Ur Squamous Epith Cells 0-1 /hpf (0-5/HPF) Urine Bacteria None seen (None) Ur Culture Indicated? Cult not indicated Point of care testing: Urine Dip Bedside Urine Glucose Negative Bedside Urine Bilirubin - Negative Bedside Urine Ketone +/- 5 Urine Specific [place] 1.015 Bedside Urine Occult Blood +/- Bedside Urine pH 6.0 Bedside Urine Protein - Negative Bedside Urine Urobilinogen - Negative Bedside Urine Nitrite - Negative Bedside Urine Leukocytes - Negative Esterase Imaging Data CT scan - abdomen/pelvis: Radiologist's Impression: Launch?[place] [address] CT Scan Report Signed Patient: Melinda Mccartney MR#: [id number] : 1945 Acct:[id number] Age/Sex: 76 / F Date of Service: 09/08/21 Loc: ED Accession Number: [id number] ?? Procedure: CT abdomen pelvis w con Ordering Provider: Stephanie Steve D.O. PROCEDURE:? CT ABDOMEN PELVIS W CON ? INDICATIONS:? abd pain ? TECHNIQUE:? After the administration of intravenous contrast, axial sections acquired from the lung bases to the pubic symphysis.? Coronal and sagittal reformats were performed.? For radiation dose reduction, the following was used:? automated exposure control, adjustment of mA and/or kV according to patient size.? ? COMPARISON:? None. ? FINDINGS:? Image quality:? Excellent.? ? Lung bases:? A calcified granuloma is seen at the right lung base.? Small hiatal hernia. Heart:? No significant findings. ? ABDOMEN: Liver:? A 2.9 x 2.0 cm heterogeneously hyperenhancing lesion at the inferior right hepatic lobe is nonspecific, but may represent a hemangioma. Gallbladder:? Unremarkable. Biliary ducts:? Unremarkable.? ? Pancreas:? Unremarkable.? ? Spleen:? Coarse calcifications in the spleen are most likely secondary to prior granulomatous disease. Adrenal Glands:? Unremarkable.? ? Kidneys and Ureters:? Unremarkable.? ? ? Stomach and Bowel:? Multiple diverticula are seen in the colon.? There is bowel wall thickening and inflammatory fat stranding surrounding a diverticulum of the junction of the descending and sigmoid colon.? No pneumoperitoneum.? Trace reactive fluid is seen without an abscess.? No signs of bowel obstruction. Peritoneum:? No significant ascites.? No free air.? ? Ventral Wall: ? No hernias.? Abdominal Nodes:? No retroperitoneal or mesenteric adenopathy by size criteria.? Vessels:? Aorta and inferior vena cava are normal in size.? Mild aortic atherosclerosis. ? PELVIS: Pelvic Organs:? Status post hysterectomy.? Mild prolapse of perirectal or peritoneal fat is seen into the perineum.? ? Bladder:? Unremarkable.? ? Pelvic Nodes: No enlarged lymph nodes.? Miscellaneous: No hernias are seen. ? ? ? Bones: ? Mild degenerative changes are seen in the spine.? Mild levoconvex curvature of the spine. ? IMPRESSION:? 1. Acute uncomplicated diverticulitis at the junction of the sigmoid and descending colon. 2. Nonspecific heterogeneously enhancing 2.9 cm lesion in the inferior right hepatic lobe is most likely a benign hemangioma.? Recommend liver protocol MRI or CT for further evaluation, which may be obtained on an non urgent outpatient basis. 3. Small hiatal hernia.? ? ? Dictated by: Ryan Kang M.D. on 09/08/2021 at 19:13 ? ? Approved by: Ryan Kang M.D. on 09/08/2021 at 19:18?? [facility] Narrative Medical decision making narrative: This is a 76-year-old female who comes with emergency department for concern for diverticulitis she has had longstanding left lower quadrant tenderness which has been coming increasing intensity with some mild chills, nausea but no vomiting and slightly looser stools. Patient's exam findings are consistent with a diverticulitis but with her longstanding history she also notes she had a colonoscopy a year ago and had a polyp. Patient has mild leukocytosis. Labs are otherwise reassuring, urine shows ketones but no other changes. CT abdomen pelvis was obtained and shows diverticulitis. Patient started on Augmentin. Plan for Tylenol ibuprofen at home for pain control. Return precautions discussed. Discharge Plan Departure Patient Disposition: Home Clinical Impression: Diverticulitis, Lesion of liver Instructions: DI for Diverticulitis Activity Restrictions/Additional Instructions: Your imaging today does show diverticulitis. Would expect you to start to have improvement in 24-48 hours of antibiotics. Please start antibiotics until completely gone. You may take Tylenol and/or ibuprofen as needed for pain. Prescription sent to [facility] in [place]. You do have a lesion noted on your liver it is likely hemangioma but would be appropriate to follow-up with a liver protocol MRI or CT which your primary care physician can help you with. This does not have to be done emergently. Please return for fevers, rapidly worsening abdominal, back or flank pain, persistent vomiting, new black or bloody stools, lightheadedness or passing out or other new or concerning symptoms. Prescriptions: New amoxicillin-pot clavulanate [Augmentin] 875-125 mg tablet 1 tab PO Q12H Qty: 20 0RF No Action metoprolol succinate 25 mg capsule,sprinkle,ER 24hr 25 mg PO DAILY 0RF lisinopril 20 mg tablet 20 mg PO DAILY 0RF simvastatin 10 mg tablet 10 mg PO DAILY 0RF hydrochlorothiazide 12.5 mg capsule 12.5 mg PO DAILY 0RF omeprazole 20 mg capsule,delayed release(DR/EC) 20 mg PO DAILY 0RF Adult 50 Plus Probiotic 4 billion cell capsule 4,000 mmu cells PO DAILY 0RF Rx Instructions: administer with a meal Ultra CoQ10 75 mg capsule 300 mg PO DAILY 0RF krill oil 500 mg capsule 1 mg PO DAILY 0RF cholecalciferol (vitamin D3) [Baby Vitamin D3] 10 mcg/drop (400 unit/drop) drops 10 mcg PO DAILY 0RF Referrals: Leilani Titus PA-C [Primary Care Provider] -
[2021-09-08 19:14] LABS: Bacteria Urine None Seen; Culture Indicated Urine Cult Not Indicated; RBC Urine 0-1/HPF (0-5/HPF); Squamous Epithelial Cell Urine 0-1 /HPF (0-5/HPF); WBC Urine 0-1/HPF (0-5/HPF)
[2021-09-08] MEDS: AMOXICILLIN/CLAV 875/125 MG 1 TAB PO (19:54)
[2021-09-08 20:01] VITALS: BP 180/75; PULSE 86; RESP 18; O2SAT 98
== END 2021-09-08 20:02 | disposition home or self-care (01) ==
PROVIDERS: Emergency Medicine; Emergency Provider Emergency Medicine; Family Provider Physician Assistant; PCP Physician Assistant
DX: K57.32 Diverticulitis of large intestine without perforation or abscess without bleeding (principal); K76.9 Liver disease, unspecified; I10 Essential (primary) hypertension
CPT/HCPCS: 36415; 74177; 80053; 81003; 81015; 83690; 85025; 93005; 93010; 99284; Q9967

== ENCOUNTER → 2022-05-18 12:32 | Outpatient (CLI) | payer OTHER, SELFPAY ==
--- NOTE | 2022-05-18 | DI.US.S_ITS ---
PROCEDURE: US ABDOMEN LIMITED INDICATIONS: SOFT TISSUE MASS ON BACK TECHNIQUE: Real-time focused scanning was performed of the abdomen, with image documentation. COMPARISON: None. FINDINGS: At the site of clinical concern, there is a subcutaneous ovoid mass without abnormal vascularity that measures 6.6 x 2.7 x 6 cm. The echotexture is similar to the surrounding normal subcutaneous fat. IMPRESSION: Lipoma at the area of clinical concern till proven otherwise. Dictated by: Ayo Clement M.D. on 05/18/2022 at 13:02 Approved by: Ayo Clement M.D. on 05/18/2022 at 13:03
== END ==
PROVIDERS: Family Provider Physician Assistant; PCP Physician Assistant; Referring Provider Physician Assistant; Visit Provider Physician Assistant
DX: D17.1 Benign lipomatous neoplasm of skin and subcutaneous tissue of trunk (principal)
CPT/HCPCS: 76705

== ENCOUNTER 2022-07-14 14:21 | Emergency (ER) | payer OTHER, SELFPAY ==
[2022-07-14] VITALS (8 sets, daily range): BP systolic 154–195; BP diastolic 67–81; PULSE 60–72; RESP 17–21; TEMP 36.4; O2SAT 93–99; BMI 27.6
--- NOTE | 2022-07-14 14:34 | DI.RAD.S_ITS ---
PROCEDURE: XR CHEST 1V INDICATIONS: suspected sepsis TECHNIQUE: One view of the chest was acquired. COMPARISON: None. FINDINGS: Surgical changes and devices: None. Lungs and pleura: Lungs are clear. No pleural effusions or pneumothorax. Mediastinum: Mediastinal contours appear normal. Heart size is normal. Bones and chest wall: No suspicious bony lesions. Overlying soft tissues appear unremarkable. IMPRESSION: No acute process. Dictated by: Norma Chau M.D. on 07/14/2022 at 15:26 Approved by: Norma Chau M.D. on 07/14/2022 at 15:26
[2022-07-14 15:18] LABS: Prothrombin Time 11.4 SECONDS (10.1-12.7)
[2022-07-14 15:21] LABS: HEMOLYSIS < 15 (0-50); PTT Partial Thromboplastin Tim 35 SECONDS (26-36); Potassium 3.2 mmol/L (3.4-5.1)
[2022-07-14 15:22] LABS: Alanine Aminotransferase 24 IU/L (<35); Albumin 4.3 g/dL (3.5-5.0); Albumin Globulin Ratio 1.2 (1.0-2.8); Alkaline Phosphatase 92 U/L (38-126); Aspartate Aminotransferase 34 IU/L (14-36); BUN Creatinine Ratio 14.1 (6-22); Bilirubin Total 0.2 mg/dL (0.2-1.3); Blood Urea Nitrogen 12 mg/dL (7-17); Calcium 8.8 mg/dL (8.4-10.2); Carbon Dioxide 30 mmol/L (22-32); Chloride 91 mmol/L (98-107); Estimated Glomerular Filt Rate > 60 mL/min (>60); Globulin 3.5 g/dL (1.7-4.1); Glucose 95 mg/dL (80-110); Lactate (Lactic Acid) 0.9 mmol/L (0.7-2.1); Lipase 84 U/L (23-300); Sodium 131 mmol/L (137-145); Total Protein 7.8 g/dL (6.3-8.2)
[2022-07-14 15:23] LABS: Add Manual Diff / Slide Review NO; Basophils Absolute Auto 100 /uL (0-100); Eosinophils Absolute Auto 0 /uL (0-450); Eosinophils Percent Auto 0.3 % (2-4); Hematocrit 37.3 % (36-46); Hemoglobin 12.4 g/dL (12.0-16.0); Lymphocytes Absolute Auto 2200 /uL (1100-4500); Lymphocytes Percent Auto 28.9 % (25-40); Mean Corpuscular HGB Conc 33.2 % (30-36); Mean Corpuscular Hemoglobin 29.4 PG (26-34); Mean Corpuscular Volume 88.6 fL (80-100); Monocytes Absolute Auto 900 /uL (0-900); Monocytes Percent Auto 12.3 % (3-14); Neutrophils Absolute Auto 4300 /uL (1500-7000); Neutrophils Percent Auto 57.5 % (50-75); Platelet Count 230 X10^3/uL (150-400); Red Blood Cell Count 4.21 X10^6/uL (4.0-5.2); Red Cell Distribution Width 13.4 % (11.6-14.8); White Blood Cell Count 7.5 X10^3/uL (4.5-11.0)
[2022-07-14 15:38] LABS: Procalcitonin 0.11 ng/mL (<0.5)
[2022-07-14 15:47] LABS: COVID-19 CEPHEID 4-PLEX PCR Negative (Negative); Influenza A - CEPHEID Flu A POSITIVE (NEGATIVE); Influenza B - CEPHEID Flu B NEGATIVE (NEGATIVE); Respiratory Syncytial Virus Negative (Negative)
[2022-07-14] MEDS: SODIUM CHLORIDE 0.9% 1,000 ML 1000 ML IV (16:39)
[2022-07-14 16:52] LABS: Bacteria Urine Few (2-10); RBC Urine None Seen (0-5/HPF); Squamous Epithelial Cell Urine 1-5 /HPF (0-5/HPF); WBC Urine 0-1/HPF (0-5/HPF)
[2022-07-14 16:53] LABS: Culture Indicated Urine Cult Not Indicated
--- NOTE | 2022-07-14 17:10 | ED_ITS ---
HPI - URI/Sore Throat General Chief Complaint: Fever Stated Complaint: cough, flu type sxs, dehydration, uti Time Seen by Provider: 07/14/22 15:55 Source: patient Mode of arrival: Ambulatory History of Present Illness HPI Narrative: Patient is a 77-year-old female who has past medical history of hypertension hyperlipidemia presenting today with fever upper respiratory symptoms and painful urination. She states that she started not feeling well 2 days ago just kind of general body aches and malaise. Yesterday she was lying on the couch and says that she passed out briefly. Her left the room for a minute and then came back and it took him a little bit to wake her up. They did not want to come and get evaluated at that time. She has been noticing some dysuria as well she denies any flank pain. No nausea or vomiting. She also says that she is having decreased appetite but no nausea or vomiting. She denies any shortness of breath with exertion she has no chest pain. No numbness tingling or weakness. She is not on any anticoagulation medication. She did not hit her head. Related Data Home Medications Medication Instructions Recorded Confirmed cholecalciferol (vitamin D3) 10 10 mcg PO DAILY 01/10/20 09/08/21 mcg/drop (400 unit/drop) oral drops (Baby Vitamin D3) coenzyme Q10 75 mg capsule (Ultra 300 mg PO DAILY 01/10/20 09/08/21 CoQ10) hydrochlorothiazide 12.5 mg capsule 12.5 mg PO DAILY 01/10/20 09/08/21 krill oil 500 mg capsule 1 mg PO DAILY 01/10/20 09/08/21 lactobacillus combination no.9 4 4,000 mmu cells PO DAILY 01/10/20 09/08/21 billion cell capsule (Adult 50 Plus Probiotic) lisinopril 20 mg tablet 20 mg PO DAILY 01/10/20 09/08/21 metoprolol succinate 25 mg capsule 25 mg PO DAILY 01/10/20 09/08/21 sprinkle, ext. release 24 hr omeprazole 20 mg capsule,delayed 20 mg PO DAILY 01/10/20 09/08/21 release simvastatin 10 mg tablet 10 mg PO DAILY 01/10/20 09/08/21 Previous Rx's Medication Instructions Recorded amoxicillin 875 mg-potassium 1 tab PO Q12H #20 tabs 09/08/21 clavulanate 125 mg tablet (Augmentin) cephalexin 500 mg capsule 500 mg PO BID 5 days #10 caps 07/14/22 Allergies Allergy/AdvReac Type Severity Reaction Status Date / Time No Known Drug Allergies Allergy Verified 07/14/22 14:29 Review of Systems Review of Systems ROS Unobtainable: All systems reviewed & are unremarkable except as noted in HPI and below Patient History Medical History Vera esophagus High cholesterol HTN (hypertension) Surgical History History of cardiac radiofrequency ablation Hx of hysterectomy Family History Mother Hypertension Father Heart disease Sister Cancer Social History marital status: household members: spouse Smoking Status: Never smoker alcohol intake: current substance use type: does not use Smoking Status: Never smoker alcohol intake frequency: holidays/special occasions only Substance Use Type: does not use Exam Initial Vital Signs Initial Vital Signs: Vital Signs Temperature 97.5 F L 07/14/22 14:29 Pulse Rate 67 07/14/22 14:29 Respiratory Rate 18 07/14/22 14:29 Blood Pressure 160/72 H 07/14/22 14:29 Pulse Oximetry 97 07/14/22 14:29 Oxygen Delivery Method 07/14/22 14:29 GENERAL: Alert pleasant 77-year-old female HEENT: Head atraumatic,EOMI, pupils reactive, face symmetric, moist mucous membranes CARDIOVASCULAR: Regular rate and rhythm without murmurs, rubs or gallops. RESPIRATORY: Breath sounds equal bilaterally, no wheezes rales or rhonchi. ABDOMEN: Soft, nontender. Normoactive bowel sounds all 4 quadrants. No guarding or rebound. : No flank pain EXTREMITIES: Normal range of motion, no clubbing or edema. Neurovascularly int act NEUROLOGICAL: Alert and oriented x4.Normal gait and speech. Cranial nerves II through XII grossly intact. Good [id number]-[id number], good hqun-gs-[id number], strength equal bilaterally, no dysarthria or aphasia, sensation in tact to soft touch bilaterally, no visual changes, no facial droop SKIN: Warm, dry, no laceration, no petechiae, no rashes or lesions. Scores NIH Stroke Scale Level of Conciousness: Alert, keenly responsive Ask month/age: Answers both questions correctly. Open/close eyes, close hand: Performs both tasks correctly Best gaze horizontal: Normal Visual goldman: No visual loss Facial palsy: Normal symetrical movement Left arm drift: No drift for full 10 sec Right arm drift: No drift for full 10 sec Left leg drift: No drift for full 5 sec Right leg drift: No drift for full 5 sec Limb ataxia: Absent Sensory on face/arms/legs: Normal, no sensory loss Best language: No aphasia, normal Dysarthria: Normal Extinction or inattention: No abnormality Total NIH Stroke scale score: 0 Course Orders Ordered: ED Orders 07/14/22 14:34 XR chest 1V Stat EKG-12 Lead Stat 07/14/22 14:49 Urine Microscopic Stat 07/14/22 14:50 Covid-19 + FLU A/B + RSV - PCR Stat 07/14/22 14:55 Complete Blood Count AUTO DIFF Stat Comprehensive Metabolic Panel Stat Lactate (Lactic Acid) Stat Lipase Stat Partial Thromboplastin Time Stat Procalcitonin Stat Prothrombin Time INR Stat 07/14/22 15:53 Blood Culture Stat Discontinued Medications Sodium Chloride (Normal Saline 0.9%) 1,000 mls @ 1,000 mls/hr IV BOLUS ONE Stop: 07/14/22 15:33 Last Infusion: 07/14/22 17:55 Dose: 0 mls/hr Documented By: Admin: 07/14/22 16:39 Dose: 1,000 mls/hr Documented By: RB Ceftriaxone Sodium 1,000 mg/ (Sodium Chloride) 100 mls @ 200 mls/hr IV NOW ONE Stop: 07/14/22 17:20 Last Infusion: 07/14/22 18:40 Dose: 0 mls/hr Documented By: Admin: 07/14/22 18:02 Dose: 200 mls/hr Documented By: RB Ondansetron HCl (Ondansetron 4 Mg/2 Ml Inj) 4 mg IV NOW PRN PRN Reason: Nausea And Vomiting Ondansetron HCl (Ondansetron 4 Mg Odt) 4 mg SL NOW PRN PRN Reason: Nausea And Vomiting Vital Signs Vital signs: Vital Signs - 8 hr 07/14/22 14:29 07/14/22 16:30 07/14/22 16:31 Temperature 97.5 F L Pulse Rate 67 60 63 Respiratory Rate 18 17 19 Blood Pressure 160/72 H Pulse Oximetry 97 93 Oxygen Delivery Method Room Air 07/14/22 16:31 07/14/22 17:00 07/14/22 17:01 Temperature Pulse Rate 61 60 Respiratory Rate 21 Blood Pressure 195/81 H Pulse Oximetry 99 98 Oxygen Delivery Method 07/14/22 17:01 07/14/22 17:30 07/14/22 17:30 Temperature Pulse Rate 69 Respiratory Rate Blood Pressure 175/74 H 189/75 H Pulse Oximetry 99 Oxygen Delivery Method 07/14/22 18:45 07/14/22 18:47 07/14/22 18:47 Temperature Pulse Rate 68 72 Respiratory Rate Blood Pressure 154/67 H Pulse Oximetry 95 97 Oxygen Delivery Method MDM - URI/Sore Throat Lab Data Result diagrams: 07/14/22 14:55 07/14/22 14:55 Labs: Lab Results 07/14/22 07/14/22 07/14/22 Range/Units 14:49 14:50 14:55 WBC 7.5 (4.5-11.0) X10^3/uL RBC 4.21 (4.0-5.2) X10^6/uL Hgb 12.4 (12.0-16.0) g/dL Hct 37.3 (36-46) % MCV 88.6 (80-100) fL MCH 29.4 (26-34) PG MCHC 33.2 (30-36) % RDW 13.4 (11.6-14.8) % Plt Count 230 (150-400) X10^3/uL Neut % (Auto) 57.5 (50-75) % Lymph % (Auto) 28.9 (25-40) % [place] % (Auto) 12.3 (3-14) % Eos % (Auto) 0.3 L (2-4) % Baso % (Auto) 1.0 (0-2) % Neut # (Auto) 4300 (7399-3517) /uL Lymph # (Auto) 2200 (1511-3679) /uL [place] # (Auto) 900 (0-900) /uL Eos # (Auto) 0 (0-450) /uL Baso # (Auto) 100 (0-100) /uL PT (10.1-12.7) SECONDS INR (0.9-1.3) APTT (26-36) SECONDS Sodium (137-145) mmol/L Potassium (3.4-5.1) mmol/L Chloride (98-107) mmol/L Carbon Dioxide (22-32) mmol/L BUN (7-17) mg/dL Creatinine (0.52-1.04) mg/dL Estimated GFR (>60) mL/min BUN/Creatinine Ratio (6-22) Glucose (80-110) mg/dL Lactate (0.7-2.1) mmol/L Calcium (8.4-10.2) mg/dL Total Bilirubin (0.2-1.3) mg/dL AST (14-36) IU/L ALT (<35) IU/L Alkaline Phosphatase (38-126) U/L Total Protein (6.3-8.2) g/dL Albumin (3.5-5.0) g/dL Globulin (1.7-4.1) g/dL Albumin/Globulin Ratio (1.0-2.8) Lipase (23-300) U/L Procalcitonin (<0.5) ng/mL Urine RBC None seen (0-5/HPF) Urine WBC 0-1/hpf (0-5/HPF) Ur Squamous Epith Cells 1-5 /hpf (0-5/HPF) Urine Bacteria Few (2-10) H (None) Ur Culture Indicated? Cult not indicated SARS-CoV-2 (PCR) Negative (Negative) Influenza A (RT-PCR) Flu a positive H (NEGATIVE) Influenza B (RT-PCR) Flu b negative (NEGATIVE) RSV (PCR) Negative (Negative) 07/14/22 07/14/22 07/14/22 Range/Units 14:55 14:55 14:55 WBC (4.5-11.0) X10^3/uL RBC (4.0-5.2) X10^6/uL Hgb (12.0-16.0) g/dL Hct (36-46) % MCV (80-100) fL MCH (26-34) PG MCHC (30-36) % RDW (11.6-14.8) % Plt Count (150-400) X10^3/uL Neut % (Auto) (50-75) % Lymph % (Auto) (25-40) % [place] % (Auto) (3-14) % Eos % (Auto) (2-4) % Baso % (Auto) (0-2) % Neut # (Auto) (2946-7333) /uL Lymph # (Auto) (0525-0214) /uL [place] # (Auto) (0-900) /uL Eos # (Auto) (0-450) /uL Baso # (Auto) (0-100) /uL PT 11.4 (10.1-12.7) SECONDS INR 1.0 (0.9-1.3) APTT 35 (26-36) SECONDS Sodium 131 L (137-145) mmol/L Potassium 3.2 L (3.4-5.1) mmol/L Chloride 91 L (98-107) mmol/L Carbon Dioxide 30 (22-32) mmol/L BUN 12 (7-17) mg/dL Creatinine 0.85 (0.52-1.04) mg/dL Estimated GFR > 60 (>60) mL/min BUN/Creatinine Ratio 14.1 (6-22) Glucose 95 (80-110) mg/dL Lactate 0.9 (0.7-2.1) mmol/L Calcium 8.8 (8.4-10.2) mg/dL Total Bilirubin 0.2 (0.2-1.3) mg/dL AST 34 (14-36) IU/L ALT 24 (<35) IU/L Alkaline Phosphatase 92 (38-126) U/L Total Protein 7.8 (6.3-8.2) g/dL Albumin 4.3 (3.5-5.0) g/dL Globulin 3.5 (1.7-4.1) g/dL Albumin/Globulin Ratio 1.2 (1.0-2.8) Lipase 84 (23-300) U/L Procalcitonin 0.11 (<0.5) ng/mL Urine RBC (0-5/HPF) Urine WBC (0-5/HPF) Ur Squamous Epith Cells (0-5/HPF) Urine Bacteria (None) Ur Culture Indicated? SARS-CoV-2 (PCR) (Negative) Influenza A (RT-PCR) (NEGATIVE) Influenza B (RT-PCR) (NEGATIVE) RSV (PCR) (Negative) Urine Dip Bedside Urine Glucose Negative Bedside Urine Bilirubin - Negative Bedside Urine Ketone - Negative Urine Specific [place] 1.010 Bedside Urine Occult Blood +/- Bedside Urine pH 6.0 Bedside Urine Protein - Negative Bedside Urine Urobilinogen - Negative Bedside Urine Nitrite - Negative Bedside Urine Leukocytes - Negative Esterase Imaging Data Chest x-ray: Radiologist's Impression: Signed Patient: Melinda Mccartney MR#: [id number] : 1945 Acct:[id number] Age/Sex: 77 / F Date of Service: 07/14/22 Loc: ED Accession Number: [id number] ?? Procedure: XR chest 1V Ordering Provider: Maryjane Costello D.O. PROCEDURE:? XR CHEST 1V ? INDICATIONS:? suspected sepsis ? TECHNIQUE:? One view of the chest was acquired.? ? COMPARISON:? None. ? FINDINGS:? ? Surgical changes and devices:? None.? ? Lungs and pleura:? Lungs are clear.? No pleural effusions or pneumothorax.? ? Mediastinum:? Mediastinal contours appear normal.? Heart size is normal.? ? Bones and chest wall:? No suspicious bony lesions.? Overlying soft tissues appear unremarkable.? ? IMPRESSION:? No acute process. ? ? Dictated by: Norma Chau M.D. on 07/14/2022 at 15:26 ? ? ECG Data Interpretation: Patient is 77-year-old female who presents with infection like symptoms both upper respiratory and UTI, she is found to have influenza A she also leukocytes in her urine but no nitrates or bacteria. However she is quite symptomatic I think reasonable to treat her. She likely had near syncopal episode yesterday there is no injury. Likely secondary to influenza and UTI. There is no evidence of significant dehydration. She is known neurologic deficits she is not on any anticoagulation. At this time I do not see need for like head CT or other imaging. She is given IV fluids 1 dose of Rocephin here in the ED and is overall improved. She is no sign of severe sepsis no leukocytosis hypotension or tachycardia. At this time no admission criteria is met. Patient can have s upportive care at home and return as needed Discharge Plan Departure Patient Disposition: Home Clinical Impression: Acute UTI, Influenza A Instructions: DI for Urinary Tract Infection (UTI), DI for Influenza -- Adult Activity Restrictions/Additional Instructions: *You have been diagnosed with influenza a, UTI *What to do: At this time stay hydrated drink Gatorade or Gatorade like product. Treat fever as needed. *Continue to take medications as directed Keflex 500 mg twice a day for 5 days --> SENT TO [facility] Tylenol 650 mg every 4-6 hours if needed for pain or fever Motrin 600 mg every 6 hours if needed for pain or fever *Follow up with your primary care provider in 2-3 days or call [phone] *Return to ER if you should have recurrent syncopal episode or any new, worsening or concerning symptoms Prescriptions: New cephalexin 500 mg capsule 500 mg PO BID 5 Days Qty: 10 0RF No Action metoprolol succinate 25 mg capsule,sprinkle,ER 24hr 25 mg PO DAILY lisinopril 20 mg tablet 20 mg PO DAILY simvastatin 10 mg tablet 10 mg PO DAILY hydrochlorothiazide 12.5 mg capsule 12.5 mg PO DAILY omeprazole 20 mg capsule,delayed release(DR/EC) 20 mg PO DAILY Adult 50 Plus Probiotic 4 billion cell capsule 4,000 mmu cells PO DAILY Rx Instructions: administer with a meal Ultra CoQ10 75 mg capsule 300 mg PO DAILY krill oil 500 mg capsule 1 mg PO DAILY cholecalciferol (vitamin D3) [Baby Vitamin D3] 10 mcg/drop (400 unit/drop) drops 10 mcg PO DAILY amoxicillin-pot clavulanate [Augmentin] 875-125 mg tablet 1 tab PO Q12H Qty: 20 0RF Referrals: Leilani Titus PA-C [Primary Care Provider] - Visit Report Forms: Patient Portal/API
[2022-07-14] MEDS: cefTRIAXone 1,000 MG in SODIUM CHLORIDE 0.9% 100 ML 200 MG IV (18:02)
== END 2022-07-14 18:55 | disposition home or self-care (01) ==
PROVIDERS: Emergency Provider Emergency Medicine; Family Provider Physician Assistant; PCP Physician Assistant
DX: J10.1 Influenza due to other identified influenza virus with other respiratory manifestations (principal); N39.0 Urinary tract infection, site not specified; Z20.822 Contact with and (suspected) exposure to COVID-19; Z79.899 Other long term (current) drug therapy
CPT/HCPCS: 0241U; 36415; 71045; 80053; 81003; 81015; 83605; 83690; 84145; 85025; 85610; 85730; 87040; 93005; 96361; 96365; 99284; J0696

== ENCOUNTER 2023-01-18 13:30 | Outpatient (RCR) | payer OTHER, SELFPAY ==
--- NOTE | 2022-12-01 09:37 | PT.OIE ---
Current Diagnoses Rectocele (11/30/22) Past Medical History (Last Updated 11/28/22 @ 19:04 by Darleen Infante) Vera esophagus (~2011) Endometriosis (~1983) Hemorrhoid (~1989) High cholesterol HTN (hypertension) (~1999) Osteoarthritis (~2003) Osteopenia (~1999) Past Surgical History (Last Updated 11/29/22 @ 16:39 by Ligia Mensah DO) Anesthesia History of cardiac radiofrequency ablation Hx of hysterectomy (~1984) Visit Care Team Role Provider Type Ligia Mensah DO Attending Provider Physician Family Provider Primary Care Provider Referring Provider Specialty: Medical Address: [address] [place] [address], [address], [place], [address] Email: [email or web address] Physical Therapy Initial Evaluation PT-OP-A Visit Information Start: 11/30/22 11:30 Freq: Status: Active Protocol: Document 11/30/22 18:04 [facility] (Rec: 11/30/22 18:04 [facility] [id number]) Out-Patient Physical Therapy Visit Information Visit Information Visit Type Initial Evaluation Visit Start Time 09:00 Visit Stop Time 09:45 Total Visit Minutes 45 Visit Number 1 Evaluation Information Evaluation Date 11/30/22 PT-OP-B Current Condition Start: 11/30/22 11:30 Freq: Status: Active Protocol: Document 11/30/22 18:04 [facility] (Rec: 11/30/22 18:06 [facility] [id number]) Current Condition History of Current Condition Onset Date 4 years ago Current Complaints rectocele with pelvic pressure , urinary incontinence History of Current Condition 77 year old female who underwent a hysterectomy in 1984 and 4 years ago started feeling pelvic pressure with standing. She was diagnosed with a rectocele and seeks PT to help with pelvic floor strengthening. Pt reports she would like to try and avoid surgery. She describes symptoms of urinary incontinence and wears a mini pad daily. She wakes 1-2 times per night to void and does not need a pad at night. PMHx includes arthritis, osteoporosis, hysterectomy 1984 PT-OP-I Pelvic Floor Start: 11/30/22 11:30 Freq: Status: Active Protocol: Document 11/30/22 09:00 [facility] (Rec: 12/01/22 09:24 [facility] [id number]) Pelvic Floor Assessment Urine Pelvic Floor Surgery Yes: hysterectomy Urinary Symptoms Urge Sensation Other Urinary Symptoms urinary stress incontnence with coughing and sneezing Leakage Size Small Leakage Cause Cough,Exercise,Lifting,Sneeze Leaks Per Day 1-2 Voiding Frequency every 2 hours Nocturia 1-2 Urine Pad Type Panty Liner Pelvic Clock Pelvic Clock 12-3 Atrophy Pelvic Clock 3-6 Atrophy Pelvic Clock 6-9 Atrophy Pelvic Clock 9-12 Atrophy Prolapse Rectocele Grade 2 Contraction Ability Voluntary Contraction Weak Voluntary Relaxation Weak Manual Muscle Testing Left 2 Manual Muscle Testing Right 2 Manual Muscle Testing Anterior 2 Manual Muscle Testing Posterior 2 Muscle Endurance (Seconds) 3 Comments Pelvic Floor Comments decreased endurance, thinning tissue palpated in the posterior wall of the levator ani, poor endurnace of the pelvic floor PT-OP-M Strength Start: 11/30/22 11:30 Freq: Status: Active Protocol: Document 11/30/22 09:00 [facility] (Rec: 12/01/22 09:24 [facility] [id number]) Trunk Strength Trunk Manual Muscle Testing Testing Position Supine Core Stabilization poor transverse abdominal muscle facilitation PT-OP-Q Treatments Start: 11/30/22 11:30 Freq: Status: Active Protocol: Document 11/30/22 18:06 [facility] (Rec: 11/30/22 18:07 [facility] [id number]) Therapeutic Exercises Supine Exercises pelvic floor long holds Reps/Minutes x 10reps holdign 10 seconds Comments EMG biofeedback was used for neurore-ed of the pelvic floor PT-OP-T Assessment and Plan Start: 11/30/22 11:30 Freq: Status: Active Protocol: Document 11/30/22 09:00 [facility] (Rec: 12/01/22 09:37 [facility] [id number]) Physical Therapy Assessment Rehab Potential Rehabilitation Potential Excellent Evaluation Complexity Number of Personal Factors/Comorbidities 0 Number of Body Systems Impaired 1-2 Clinical Presentation at Evaluation Stable Impairments Impairments Activity Tolerance,Functional Activities,Functional Mobility ,Soft Tissue Mobility,Strength ,Tone Goals 3 Impairment Urinary incontinence with coughing and sneezing Driver Guard Goal (LTG) Ayleen reports a overall reduction in urinary leakage with activitiy and is no longer needing to wear a pad for protection LTG Duration 12 weeks 2 Impairment Decreased pelvic floor endurance Short Term Goal (STG) Ayleen is able to sustain a pelvic floor contraction in supine x 10 seconds STG Duration 4 weeks Mcc Goal (LTG) ayleen is able to sustain a pelvic floor contraction in standing 5-10 seconds LTG Duration 12 weeks 1 Impairment Pelvic floor weakness with rectocele and c/o pelvic heaviness Short Term Goal (STG) pt is educated on pelvic foor endurance training and ways to decompress the pelvis taking pressure off the pelvic organs STG Duration 5 weeks Mcc Goal (LTG) Pt demonstrates improved strength of the pelvic floor to 3/5 MMT or better and reports a decrease in pelvic floor heaviness and pressure LTG Duration 12 weeks Assessment Summary Assessment keri Wei) is a 77 year old female referred to PT with pelvic floor weakness and a rectocele. Ayleen reports she has been feeling pelvic symptoms for the last 4 years. She has a history of a hysterectomy in 1984. She reports along with the pelvic pressure she is feeling she also experiences urinary stress incontinence. With examination today Ayleen presents with weakness of her pelvic floor and test 2/5 MMT for all nicholson of the levator ani. She lacks endurance to sustain a pelvic floor contraction more than a few seconds. With palpation there is thinning and atrophy of the vaginal tissue especially at the posterior wall. A grade 2 rectocele is present. Ayleen is using estrogen cream daily and feels this is helping some. EMG biofeedback was inititated today for neuro re-education of the pelvic floor and Ayleen tolerated this well. She is a good candidate for PT. Physical Therapy Plan Frequency and Duration Frequency of Treatment 1x/Week Duration of treatment (weeks) 12 Plan of Care Start Date 11/30/22 Plan of Care End Date 02/22/23 Therapeutic Interventions Therapeutic Interventions Home Exercise Program,Manual Therapy,Neuromuscular Re- education,Patient/Caregiver Education,Self-Care/Home Management,Soft Tissue Mobilization,Therapeutic Exercises Modalities Biofeedback Next Visit Focus/Plan Next Note Type Treatment Note Next Visit Plan Continue with EMG biofeedback and endurance training of the pelvic floor, begin adding in hip stabilization exercises next visit and teach Ayleen pelvic decompression techniques
--- NOTE | 2022-12-01 09:37 | PT.OPPOC ---
Physical, Occupational & Speech Therapy At [facility] Current Diagnoses Rectocele (11/30/22) Visit Care Team Role Provider Type Ligia Mensah DO Attending Provider Physician Family Provider Primary Care Provider Referring Provider Specialty: Medical Address: [address] [place] [address], [address], [place], [address] Email: [email or web address] Plan Of Care PT-OP-T Assessment and Plan Start: 11/30/22 11:30 Freq: Status: Active Protocol: Document 11/30/22 09:00 [facility] (Rec: 12/01/22 09:37 [facility] [id number]) Physical Therapy Assessment Rehab Potential Rehabilitation Potential Excellent Evaluation Complexity Number of Personal Factors/Comorbidities 0 Number of Body Systems Impaired 1-2 Clinical Presentation at Evaluation Stable Impairments Impairments Activity Tolerance,Functional Activities,Functional Mobility ,Soft Tissue Mobility,Strength ,Tone Goals 3 Impairment Urinary incontinence with coughing and sneezing Print Finisher Goal (LTG) Ayleen reports a overall reduction in urinary leakage with activity and is no longer needing to wear a pad for protection LTG Duration 12 weeks 2 Impairment Decreased pelvic floor endurance Short Term Goal (STG) Ayleen is able to sustain a pelvic floor contraction in supine x 10 seconds STG Duration 4 weeks Print Finisher Goal (LTG) Ayleen is able to sustain a pelvic floor contraction in standing 5-10 seconds LTG Duration 12 weeks 1 Impairment Pelvic floor weakness with rectocele and c/o pelvic heaviness Short Term Goal (STG) pt is educated on pelvic floor endurance training and ways to decompress the pelvis taking pressure off the pelvic organs STG Duration 5 weeks Fdc Goal (LTG) Pt demonstrates improved strength of the pelvic floor to 3/5 MMT or better and reports a decrease in pelvic floor heaviness and pressure LTG Duration 12 weeks Assessment Summary Assessment keri Wei) is a 77 year old female referred to PT with pelvic floor weakness and a rectocele. Ayleen reports she has been feeling pelvic symptoms for the last 4 years. She has a history of a hysterectomy in 1984. She reports along with the pelvic pressure she is feeling she also experiences urinary stress incontinence. With examination today Ayleen presents with weakness of her pelvic floor and test 2/5 MMT for all nicholson of the levator ani. She lacks endurance to sustain a pelvic floor contraction more than a few seconds. With palpation there is thinning and atrophy of the vaginal tissue especially at the posterior wall. A grade 2 rectocele is present. Ayleen is using estrogen cream daily and feels this is helping some. EMG biofeedback was initiated today for neuro re-education of the pelvic floor and Ayleen tolerated this well. She is a good candidate for PT. Physical Therapy Plan Frequency and Duration Frequency of Treatment 1x/Week Duration of treatment (weeks) 12 Plan of Care Start Date 11/30/22 Plan of Care End Date 02/22/23 Therapeutic Interventions Therapeutic Interventions Home Exercise Program,Manual Therapy,Neuromuscular Re- education,Patient/Caregiver Education,Self-Care/Home Management,Soft Tissue Mobilization,Therapeutic Exercises Modalities Biofeedback Next Visit Focus/Plan Next Note Type Treatment Note Next Visit Plan Continue with EMG biofeedback and endurance training of the pelvic floor, begin adding in hip stabilization exercises next visit and teach Ayleen pelvic decompression techniques Plan of Care Dates Plan of Care Start Date 11/30/22 Plan of Care End Date 02/22/23 Electronically Signed by: Shani Tomas, PT 12/01/22 0937 If you are in agreement with this Plan of Care, please return a signed and dated copy. I have reviewed this Plan of Care and certify that the skilled therapy services above are required to meet the patient?s needs. Physician Signature Date Printed Name and Credentials Clinical Instructor Signature Printed Name and Credentials
--- NOTE | 2022-12-07 17:18 | PT.OTN ---
Current Diagnoses Rectocele (12/07/22) Physical Therapy Treatment Note PT-OP-A Visit Information Start: 11/30/22 11:30 Freq: Status: Active Protocol: Document 12/07/22 15:02 [facility] (Rec: 12/07/22 15:12 [facility] [id number]) Out-Patient Physical Therapy Visit Information Visit Information Visit Type Treatment Note Visit Start Time 15:00 Visit Stop Time 15:45 Total Visit Minutes 45 Visit Number 2 PT-OP-B Current Condition Start: 11/30/22 11:30 Freq: Status: Active Protocol: Document 11/30/22 18:04 [facility] (Rec: 11/30/22 18:06 [facility] [id number]) Current Condition History of Current Condition Onset Date 4 years ago Current Complaints rectocele with pelvic pressure , urinary incontinence History of Current Condition 77 year old female who underwent a hysterectomy in 1984 and 4 years ago started feeling pelvic pressure with standing. She was diagnosed with a rectocele and seeks PT to help with pelvic floor strengthening. Pt reports she would like to try and avoid surgery. She describes symptoms of urinary incontinence and wears a mini pad daily. She wakes 1-2 times per night to void and does not need a pad at night. PMHx includes arthritis, osteoporosis, hysterectomy 1984 PT-OP-C Subjective Start: 11/30/22 11:30 Freq: Status: Active Protocol: Document 12/07/22 15:02 [facility] (Rec: 12/07/22 15:12 [facility] [id number]) OP-PT Subjective Patient Comments Patient Comments pt has questions about when she sits she feels the prolapse more PT-OP-I Pelvic Floor Start: 11/30/22 11:30 Freq: Status: Active Protocol: Document 11/30/22 09:00 [facility] (Rec: 12/01/22 09:24 [facility] [id number]) Pelvic Floor Assessment Urine Pelvic Floor Surgery Yes: hysterectomy Urinary Symptoms Urge Sensation Other Urinary Symptoms urinary stress incontnence with coughing and sneezing Leakage Size Small Leakage Cause Cough,Exercise,Lifting,Sneeze Leaks Per Day 1-2 Voiding Frequency every 2 hours Nocturia 1-2 Urine Pad Type Panty Liner Pelvic Clock Pelvic Clock 12-3 Atrophy Pelvic Clock 3-6 Atrophy Pelvic Clock 6-9 Atrophy Pelvic Clock 9-12 Atrophy Prolapse Rectocele Grade 2 Contraction Ability Voluntary Contraction Weak Voluntary Relaxation Weak Manual Muscle Testing Left 2 Manual Muscle Testing Right 2 Manual Muscle Testing Anterior 2 Manual Muscle Testing Posterior 2 Muscle Endurance (Seconds) 3 Comments Pelvic Floor Comments decreased endurance, thinning tissue palpated in the posterior wall of the levator ani, poor endurnace of the pelvic floor PT-OP-M Strength Start: 11/30/22 11:30 Freq: Status: Active Protocol: Document 11/30/22 09:00 [facility] (Rec: 12/01/22 09:24 [facility] [id number]) Trunk Strength Trunk Manual Muscle Testing Testing Position Supine Core Stabilization poor transverse abdominal muscle facilitation PT-OP-Q Treatments Start: 11/30/22 11:30 Freq: Status: Active Protocol: Document 12/07/22 15:02 [facility] (Rec: 12/07/22 16:02 [facility] [id number]) Therapeutic Exercises Supine Exercises pelvic clock Reps/Minutes x 10 reps quick pelvic floor contractions Reps/Minutes x 10 reps 2 secs on 2 secs off supine ball squeeze Reps/Minutes x 10 reps Comments pt is feeling better PFM isolation without ball pelvic floor long holds Reps/Minutes x 10reps holdign 10 seconds Comments 13.8 and max 26.5 uv max Self-Care/Home Management Treatment Education Patient Education Home Exercise Program,Pain Management Other Education education on sitting position without being in a pelvic tilt position and to work on sitting on her sitting bones PT-OP-T Assessment and Plan Start: 11/30/22 11:30 Freq: Status: Active Protocol: Document 12/07/22 15:02 [facility] (Rec: 12/07/22 17:15 [facility] [id number]) Physical Therapy Assessment Assessment Summary Assessment Ayleen was educated on pelvic floor endurance holds as well as quick flicks today. We talked about sitting position to avoid posterior pelvic tilt placing increased pressure on her pelvic organs and pt tolerated this well Physical Therapy Plan Frequency and Duration Frequency of Treatment 1x/Week Duration of treatment (weeks) 12 Plan of Care Start Date 11/30/22 Plan of Care End Date 02/22/23 Therapeutic Interventions Therapeutic Interventions Home Exercise Program,Manual Therapy,Neuromuscular Re- education,Patient/Caregiver Education,Self-Care/Home Management,Soft Tissue Mobilization,Therapeutic Exercises Modalities Biofeedback Next Visit Focus/Plan Next Note Type Treatment Note Next Visit Plan Continue with EMG biofeedback and endurance training of the pelvic floor, begin adding in hip stabilization exercises next visit and teach Ayleen pelvic decompression techniques
--- NOTE | 2022-12-21 10:33 | PT.OTN ---
Current Diagnoses Rectocele (12/21/22) Physical Therapy Treatment Note PT-OP-A Visit Information Start: 11/30/22 11:30 Freq: Status: Active Protocol: Document 12/21/22 09:45 [facility] (Rec: 12/21/22 10:33 [facility] [id number]) Out-Patient Physical Therapy Visit Information Visit Information Visit Type Treatment Note Visit Start Time 09:48 Visit Stop Time 10:30 Total Visit Minutes 42 Visit Number 3 PT-OP-B Current Condition Start: 11/30/22 11:30 Freq: Status: Active Protocol: Document 11/30/22 18:04 [facility] (Rec: 11/30/22 18:06 [facility] [id number]) Current Condition History of Current Condition Onset Date 4 years ago Current Complaints rectocele with pelvic pressure , urinary incontinence History of Current Condition 77 year old female who underwent a hysterectomy in 1984 and 4 years ago started feeling pelvic pressure with standing. She was diagnosed with a rectocele and seeks PT to help with pelvic floor strengthening. Pt reports she would like to try and avoid surgery. She describes symptoms of urinary incontinence and wears a mini pad daily. She wakes 1-2 times per night to void and does not need a pad at night. PMHx includes arthritis, osteoporosis, hysterectomy 1984 PT-OP-C Subjective Start: 11/30/22 11:30 Freq: Status: Active Protocol: Document 12/21/22 09:45 [facility] (Rec: 12/21/22 10:33 [facility] [id number]) OP-PT Subjective Patient Comments Patient Comments sitting is a little better and she notes she is more mindful of doing the exercises. PT-OP-I Pelvic Floor Start: 11/30/22 11:30 Freq: Status: Active Protocol: Document 11/30/22 09:00 [facility] (Rec: 12/01/22 09:24 [facility] [id number]) Pelvic Floor Assessment Urine Pelvic Floor Surgery Yes: hysterectomy Urinary Symptoms Urge Sensation Other Urinary Symptoms urinary stress incontnence with coughing and sneezing Leakage Size Small Leakage Cause Cough,Exercise,Lifting,Sneeze Leaks Per Day 1-2 Voiding Frequency every 2 hours Nocturia 1-2 Urine Pad Type Panty Liner Pelvic Clock Pelvic Clock 12-3 Atrophy Pelvic Clock 3-6 Atrophy Pelvic Clock 6-9 Atrophy Pelvic Clock 9-12 Atrophy Prolapse Rectocele Grade 2 Contraction Ability Voluntary Contraction Weak Voluntary Relaxation Weak Manual Muscle Testing Left 2 Manual Muscle Testing Right 2 Manual Muscle Testing Anterior 2 Manual Muscle Testing Posterior 2 Muscle Endurance (Seconds) 3 Comments Pelvic Floor Comments decreased endurance, thinning tissue palpated in the posterior wall of the levator ani, poor endurnace of the pelvic floor PT-OP-M Strength Start: 11/30/22 11:30 Freq: Status: Active Protocol: Document 11/30/22 09:00 [facility] (Rec: 12/01/22 09:24 [facility] [id number]) Trunk Strength Trunk Manual Muscle Testing Testing Position Supine Core Stabilization poor transverse abdominal muscle facilitation PT-OP-Q Treatments Start: 11/30/22 11:30 Freq: Status: Active Protocol: Document 12/21/22 09:45 [facility] (Rec: 12/21/22 10:33 [facility] [id number]) Therapeutic Exercises Supine Exercises hip roll outs Equipment Used level 1 TB Reps/Minutes 2 x 10 reps pelvic clock Reps/Minutes x 10 reps quick pelvic floor contractions Reps/Minutes x 10 reps 2 secs on 2 secs off supine ball squeeze Reps/Minutes held off on this exercise as Ayleen felt she was using her legs too much pelvic floor long holds Reps/Minutes x 10reps holdign 10 seconds Comments 16.0 avg and max of 32.3 Sidelying Exercises clam shells with resistance Reps/Minutes 2 x 10 PT-OP-T Assessment and Plan Start: 11/30/22 11:30 Freq: Status: Active Protocol: Document 12/21/22 09:45 [facility] (Rec: 12/21/22 10:33 [facility] [id number]) Physical Therapy Assessment Goals 3 Impairment Urinary incontinence with coughing and sneezing Senior Care Goal (LTG) Ayleen reports a overall reduction in urinary leakage with activitiy and is no longer needing to wear a pad for protection LTG Duration 12 weeks 2 Impairment Decreased pelvic floor endurance Short Term Goal (STG) Ayleen is able to sustain a pelvic floor contraction in supine x 10 seconds STG Duration 4 weeks Senior Care Goal (LTG) ayleen is able to sustain a pelvic floor contraction in standing 5-10 seconds LTG Duration 12 weeks 1 Impairment Pelvic floor weakness with rectocele and c/o pelvic heaviness Short Term Goal (STG) pt is educated on pelvic floor endurance training and ways to decompress the pelvis taking pressure off the pelvic organs STG Duration 5 weeks Hotel Service Manager Goal (LTG) Pt demonstrates improved strength of the pelvic floor to 3/5 MMT or better and reports a decrease in pelvic floor heaviness and pressure LTG Duration 12 weeks Assessment Summary Assessment endurance of the pelvic floor is improving along with intensity of contractions. Continue PT Physical Therapy Plan Frequency and Duration Frequency of Treatment 1x/Week Duration of treatment (weeks) 12 Plan of Care Start Date 11/30/22 Plan of Care End Date 02/22/23 Next Visit Focus/Plan Next Note Type Treatment Note Next Visit Plan start with cat cow and quadruped TA engagement next week
--- NOTE | 2022-12-28 17:04 | PT.OTN ---
Current Diagnoses Rectocele (12/28/22) Physical Therapy Treatment Note PT-OP-A Visit Information Start: 11/30/22 11:30 Freq: Status: Active Protocol: Document 12/28/22 16:01 [facility] (Rec: 12/28/22 17:04 [facility] [id number]) Out-Patient Physical Therapy Visit Information Visit Information Visit Type Treatment Note Visit Start Time 16:00 Visit Stop Time 16:45 Total Visit Minutes 45 Visit Number 4 PT-OP-B Current Condition Start: 11/30/22 11:30 Freq: Status: Active Protocol: Document 11/30/22 18:04 [facility] (Rec: 11/30/22 18:06 [facility] [id number]) Current Condition History of Current Condition Onset Date 4 years ago Current Complaints rectocele with pelvic pressure , urinary incontinence History of Current Condition 77 year old female who underwent a hysterectomy in 1984 and 4 years ago started feeling pelvic pressure with standing. She was diagnosed with a rectocele and seeks PT to help with pelvic floor strengthening. Pt reports she would like to try and avoid surgery. She describes symptoms of urinary incontinence and wears a mini pad daily. She wakes 1-2 times per night to void and does not need a pad at night. PMHx includes arthritis, osteoporosis, hysterectomy 1984 PT-OP-C Subjective Start: 11/30/22 11:30 Freq: Status: Active Protocol: Document 12/28/22 16:01 [facility] (Rec: 12/28/22 17:04 [facility] [id number]) OP-PT Subjective Patient Comments Patient Comments Ayleen notes she is beginning to feel different in her pelvic floor, the mornings are the best, she isn't feeling symptoms until later in the day PT-OP-I Pelvic Floor Start: 11/30/22 11:30 Freq: Status: Active Protocol: Document 11/30/22 09:00 [facility] (Rec: 12/01/22 09:24 [facility] [id number]) Pelvic Floor Assessment Urine Pelvic Floor Surgery Yes: hysterectomy Urinary Symptoms Urge Sensation Other Urinary Symptoms urinary stress incontnence with coughing and sneezing Leakage Size Small Leakage Cause Cough,Exercise,Lifting,Sneeze Leaks Per Day 1-2 Voiding Frequency every 2 hours Nocturia 1-2 Urine Pad Type Panty Liner Pelvic Clock Pelvic Clock 12-3 Atrophy Pelvic Clock 3-6 Atrophy Pelvic Clock 6-9 Atrophy Pelvic Clock 9-12 Atrophy Prolapse Rectocele Grade 2 Contraction Ability Voluntary Contraction Weak Voluntary Relaxation Weak Manual Muscle Testing Left 2 Manual Muscle Testing Right 2 Manual Muscle Testing Anterior 2 Manual Muscle Testing Posterior 2 Muscle Endurance (Seconds) 3 Comments Pelvic Floor Comments decreased endurance, thinning tissue palpated in the posterior wall of the levator ani, poor endurnace of the pelvic floor PT-OP-M Strength Start: 11/30/22 11:30 Freq: Status: Active Protocol: Document 11/30/22 09:00 [facility] (Rec: 12/01/22 09:24 [facility] [id number]) Trunk Strength Trunk Manual Muscle Testing Testing Position Supine Core Stabilization poor transverse abdominal muscle facilitation PT-OP-Q Treatments Start: 11/30/22 11:30 Freq: Status: Active Protocol: Document 12/28/22 16:01 [facility] (Rec: 12/28/22 17:04 [facility] [id number]) Therapeutic Exercises Supine Exercises templates for coordination and eccentric control Reps/Minutes x 8 min hip roll outs Equipment Used level 1 TB Reps/Minutes 2 x 10 reps pelvic clock Reps/Minutes x 10 reps quick pelvic floor contractions Reps/Minutes x 10 reps 2 secs on 2 secs off supine ball squeeze Reps/Minutes held off on this exercise as Ayleen felt she was using her legs too much pelvic floor long holds Reps/Minutes x 10reps holdign 10 seconds Comments 16.9 avg and max of 32.3 Sidelying Exercises clam shells with resistance Reps/Minutes 2 x 10 Other Exercises cat cow Reps/Minutes x 10 reps PT-OP-T Assessment and Plan Start: 11/30/22 11:30 Freq: Status: Active Protocol: Document 12/28/22 16:01 [facility] (Rec: 12/28/22 17:04 [facility] [id number]) Physical Therapy Assessment Assessment Summary Assessment Ayleen is noting decreased pelvic pressure and today she did not experience pressure until 1:00 pm. I am encouraging her to take breaks during the day to elevate her pelvis and take pressure off to minimize her symptoms Physical Therapy Plan Frequency and Duration Frequency of Treatment 1x/Week Duration of treatment (weeks) 12 Plan of Care Start Date 11/30/22 Plan of Care End Date 02/22/23 Therapeutic Interventions Therapeutic Interventions Home Exercise Program,Manual Therapy,Neuromuscular Re- education,Patient/Caregiver Education,Self-Care/Home Management,Soft Tissue Mobilization,Therapeutic Exercises Modalities Biofeedback Next Visit Focus/Plan Next Note Type Treatment Note Next Visit Plan Continue with EMG biofeedback and endurance training of the pelvic floor, begin adding in hip stabilization exercises next visit and continue to work with Ayleen on pelvic decompression techniques
--- NOTE | 2023-01-04 16:53 | PT.OTN ---
Current Diagnoses Rectocele (01/04/23) Physical Therapy Treatment Note PT-OP-A Visit Information Start: 11/30/22 11:30 Freq: Status: Active Protocol: Document 01/04/23 13:30 [facility] (Rec: 01/04/23 15:10 [facility] [id number]) Out-Patient Physical Therapy Visit Information Visit Information Visit Type Treatment Note Visit Start Time 13:30 Visit Stop Time 14:15 Total Visit Minutes 45 Visit Number 5 PT-OP-B Current Condition Start: 11/30/22 11:30 Freq: Status: Active Protocol: Document 11/30/22 18:04 [facility] (Rec: 11/30/22 18:06 [facility] [id number]) Current Condition History of Current Condition Onset Date 4 years ago Current Complaints rectocele with pelvic pressure , urinary incontinence History of Current Condition 77 year old female who underwent a hysterectomy in 1984 and 4 years ago started feeling pelvic pressure with standing. She was diagnosed with a rectocele and seeks PT to help with pelvic floor strengthening. Pt reports she would like to try and avoid surgery. She describes symptoms of urinary incontinence and wears a mini pad daily. She wakes 1-2 times per night to void and does not need a pad at night. PMHx includes arthritis, osteoporosis, hysterectomy 1984 PT-OP-C Subjective Start: 11/30/22 11:30 Freq: Status: Active Protocol: Document 01/04/23 13:30 [facility] (Rec: 01/04/23 15:10 [facility] [id number]) OP-PT Subjective Patient Comments Patient Comments Ayleen notes improvement and she isn't feeling presssure until 4-5 in the afternoon now Patient Reported Progress Improving PT-OP-I Pelvic Floor Start: 11/30/22 11:30 Freq: Status: Active Protocol: Document 11/30/22 09:00 [facility] (Rec: 12/01/22 09:24 [facility] [id number]) Pelvic Floor Assessment Urine Pelvic Floor Surgery Yes: hysterectomy Urinary Symptoms Urge Sensation Other Urinary Symptoms urinary stress incontnence with coughing and sneezing Leakage Size Small Leakage Cause Cough,Exercise,Lifting,Sneeze Leaks Per Day 1-2 Voiding Frequency every 2 hours Nocturia 1-2 Urine Pad Type Panty Liner Pelvic Clock Pelvic Clock 12-3 Atrophy Pelvic Clock 3-6 Atrophy Pelvic Clock 6-9 Atrophy Pelvic Clock 9-12 Atrophy Prolapse Rectocele Grade 2 Contraction Ability Voluntary Contraction Weak Voluntary Relaxation Weak Manual Muscle Testing Left 2 Manual Muscle Testing Right 2 Manual Muscle Testing Anterior 2 Manual Muscle Testing Posterior 2 Muscle Endurance (Seconds) 3 Comments Pelvic Floor Comments decreased endurance, thinning tissue palpated in the posterior wall of the levator ani, poor endurnace of the pelvic floor PT-OP-M Strength Start: 11/30/22 11:30 Freq: Status: Active Protocol: Document 11/30/22 09:00 [facility] (Rec: 12/01/22 09:24 [facility] [id number]) Trunk Strength Trunk Manual Muscle Testing Testing Position Supine Core Stabilization poor transverse abdominal muscle facilitation PT-OP-Q Treatments Start: 11/30/22 11:30 Freq: Status: Active Protocol: Document 01/04/23 13:30 [facility] (Rec: 01/04/23 15:10 [facility] [id number]) Therapeutic Exercises Supine Exercises templates for coordination and eccentric control Reps/Minutes x 8 min quick pelvic floor contractions Reps/Minutes x 10 reps 2 secs on 2 secs off pelvic floor long holds Reps/Minutes 10 reps holding 10 seconds Comments 12.7 and max of 28 Sitting Exercises sit-stand with pelvic floor engagement Reps/Minutes x 10 reps Standing Exercises squats with pelvic floor engagement Reps/Minutes x 15 Other Exercises cat cow Reps/Minutes x 10 reps PT-OP-T Assessment and Plan Start: 11/30/22 11:30 Freq: Status: Active Protocol: Document 01/04/23 16:51 [facility] (Rec: 01/04/23 16:53 [facility] [id number]) Physical Therapy Assessment Assessment Summary Assessment I was able to add in sit-stand and squats today. Ayleen is able to feel her pelvic floor valerie with the sit-stand but not with the squats. We will continue to work on this. Pt reports improvement of symptoms Physical Therapy Plan Frequency and Duration Frequency of Treatment 1x/Week Duration of treatment (weeks) 12 Plan of Care Start Date 11/30/22 Plan of Care End Date 02/22/23 Therapeutic Interventions Therapeutic Interventions Home Exercise Program,Manual Therapy,Neuromuscular Re- education,Patient/Caregiver Education,Self-Care/Home Management,Soft Tissue Mobilization,Therapeutic Exercises Modalities Biofeedback Next Visit Focus/Plan Next Note Type Treatment Note Next Visit Plan review standing squats and sit -stant Continue with EMG biofeedback and endurance training of the pelvic floor, begin adding in hip stabilization exercises next visit and continue to work with Ayleen on pelvic decompression techniques
--- NOTE | 2023-01-11 14:18 | PT.OTN ---
Current Diagnoses Rectocele (01/11/23) Physical Therapy Treatment Note PT-OP-A Visit Information Start: 11/30/22 11:30 Freq: Status: Active Protocol: Document 01/11/23 13:32 [facility] (Rec: 01/11/23 14:18 [facility] [id number]) Out-Patient Physical Therapy Visit Information Visit Information Visit Type Treatment Note Visit Start Time 13:32 Visit Stop Time 13:45 Total Visit Minutes 43 Visit Number 6 PT-OP-B Current Condition Start: 11/30/22 11:30 Freq: Status: Active Protocol: Document 11/30/22 18:04 [facility] (Rec: 11/30/22 18:06 [facility] [id number]) Current Condition History of Current Condition Onset Date 4 years ago Current Complaints rectocele with pelvic pressure , urinary incontinence History of Current Condition 77 year old female who underwent a hysterectomy in 1984 and 4 years ago started feeling pelvic pressure with standing. She was diagnosed with a rectocele and seeks PT to help with pelvic floor strengthening. Pt reports she would like to try and avoid surgery. She describes symptoms of urinary incontinence and wears a mini pad daily. She wakes 1-2 times per night to void and does not need a pad at night. PMHx includes arthritis, osteoporosis, hysterectomy 1984 PT-OP-C Subjective Start: 11/30/22 11:30 Freq: Status: Active Protocol: Document 01/11/23 13:32 [facility] (Rec: 01/11/23 14:18 [facility] [id number]) OP-PT Subjective Patient Comments Patient Comments pt notes she hasn't been able to have a bowel movement today and it makes her feel more pressure PT-OP-I Pelvic Floor Start: 11/30/22 11:30 Freq: Status: Active Protocol: Document 11/30/22 09:00 [facility] (Rec: 12/01/22 09:24 [facility] [id number]) Pelvic Floor Assessment Urine Pelvic Floor Surgery Yes: hysterectomy Urinary Symptoms Urge Sensation Other Urinary Symptoms urinary stress incontnence with coughing and sneezing Leakage Size Small Leakage Cause Cough,Exercise,Lifting,Sneeze Leaks Per Day 1-2 Voiding Frequency every 2 hours Nocturia 1-2 Urine Pad Type Panty Liner Pelvic Clock Pelvic Clock 12-3 Atrophy Pelvic Clock 3-6 Atrophy Pelvic Clock 6-9 Atrophy Pelvic Clock 9-12 Atrophy Prolapse Rectocele Grade 2 Contraction Ability Voluntary Contraction Weak Voluntary Relaxation Weak Manual Muscle Testing Left 2 Manual Muscle Testing Right 2 Manual Muscle Testing Anterior 2 Manual Muscle Testing Posterior 2 Muscle Endurance (Seconds) 3 Comments Pelvic Floor Comments decreased endurance, thinning tissue palpated in the posterior wall of the levator ani, poor endurnace of the pelvic floor PT-OP-M Strength Start: 11/30/22 11:30 Freq: Status: Active Protocol: Document 11/30/22 09:00 [facility] (Rec: 12/01/22 09:24 [facility] [id number]) Trunk Strength Trunk Manual Muscle Testing Testing Position Supine Core Stabilization poor transverse abdominal muscle facilitation PT-OP-Q Treatments Start: 11/30/22 11:30 Freq: Status: Active Protocol: Document 01/11/23 13:32 [facility] (Rec: 01/11/23 14:18 [facility] [id number]) Therapeutic Exercises Supine Exercises templates for coordination and eccentric control Reps/Minutes x 8 min quick pelvic floor contractions Reps/Minutes x 10 reps 2 secs on 2 secs off Comments 10.6 pelvic floor long holds Reps/Minutes 10 reps holding 10 seconds Comments 9.7 uv max of 26.4 Manual Therapy Treatment Soft Tissue Mobilization ILU self massage Mobilization Type Myofascial Release Intensity/Depth Moderate Body Position Hooklying Comments pt was educated on self massage for the colon PT-OP-T Assessment and Plan Start: 11/30/22 11:30 Freq: Status: Active Protocol: Document 01/11/23 13:32 [facility] (Rec: 01/11/23 14:18 [facility] [id number]) Physical Therapy Assessment Assessment Summary Assessment Ayleen felt more pelvic pressure today as she has not been able to have a bowel movement. She was educated on the ILU self massage and she was on the way to the store to by her sesame sticks that help her but she was also going to use a stool softener. She has one visit left in PT to review all exercises including the standing pelvic floor exercises Physical Therapy Plan Frequency and Duration Frequency of Treatment 1x/Week Duration of treatment (weeks) 12 Plan of Care Start Date 11/30/22 Plan of Care End Date 02/22/23 Next Visit Focus/Plan Next Note Type Treatment Note Next Visit Plan review standing squats and sit -stand, review pelvic floor ther ex with EMG biofeedback and endurance training of the pelvic floor
--- NOTE | 2023-01-18 17:29 | PT.OTN ---
Current Diagnoses Rectocele (01/18/23) Physical Therapy Treatment Note PT-OP-A Visit Information Start: 11/30/22 11:30 Freq: Status: Active Protocol: Document 01/18/23 13:31 [facility] (Rec: 01/18/23 14:16 [facility] [id number]) Out-Patient Physical Therapy Visit Information Visit Information Visit Type Treatment Note Visit Start Time 13:30 Visit Stop Time 14:15 Total Visit Minutes 45 Visit Number 7 PT-OP-B Current Condition Start: 11/30/22 11:30 Freq: Status: Active Protocol: Document 11/30/22 18:04 [facility] (Rec: 11/30/22 18:06 [facility] [id number]) Current Condition History of Current Condition Onset Date 4 years ago Current Complaints rectocele with pelvic pressure , urinary incontinence History of Current Condition 77 year old female who underwent a hysterectomy in 1984 and 4 years ago started feeling pelvic pressure with standing. She was diagnosed with a rectocele and seeks PT to help with pelvic floor strengthening. Pt reports she would like to try and avoid surgery. She describes symptoms of urinary incontinence and wears a mini pad daily. She wakes 1-2 times per night to void and does not need a pad at night. PMHx includes arthritis, osteoporosis, hysterectomy 1984 PT-OP-C Subjective Start: 11/30/22 11:30 Freq: Status: Active Protocol: Document 01/18/23 13:31 [facility] (Rec: 01/18/23 14:16 [facility] [id number]) OP-PT Subjective Patient Comments Patient Comments pt notes she had her shingles shot and feels run down today. She has been good all week with her bowel movements. She reports overall her symptoms of pelvic pressure are much decreased and she is happy with her progress. PT-OP-I Pelvic Floor Start: 11/30/22 11:30 Freq: Status: Active Protocol: Document 11/30/22 09:00 [facility] (Rec: 12/01/22 09:24 [facility] [id number]) Pelvic Floor Assessment Urine Pelvic Floor Surgery Yes: hysterectomy Urinary Symptoms Urge Sensation Other Urinary Symptoms urinary stress incontnence with coughing and sneezing Leakage Size Small Leakage Cause Cough,Exercise,Lifting,Sneeze Leaks Per Day 1-2 Voiding Frequency every 2 hours Nocturia 1-2 Urine Pad Type Panty Liner Pelvic Clock Pelvic Clock 12-3 Atrophy Pelvic Clock 3-6 Atrophy Pelvic Clock 6-9 Atrophy Pelvic Clock 9-12 Atrophy Prolapse Rectocele Grade 2 Contraction Ability Voluntary Contraction Weak Voluntary Relaxation Weak Manual Muscle Testing Left 2 Manual Muscle Testing Right 2 Manual Muscle Testing Anterior 2 Manual Muscle Testing Posterior 2 Muscle Endurance (Seconds) 3 Comments Pelvic Floor Comments decreased endurance, thinning tissue palpated in the posterior wall of the levator ani, poor endurnace of the pelvic floor PT-OP-M Strength Start: 11/30/22 11:30 Freq: Status: Active Protocol: Document 11/30/22 09:00 [facility] (Rec: 12/01/22 09:24 [facility] [id number]) Trunk Strength Trunk Manual Muscle Testing Testing Position Supine Core Stabilization poor transverse abdominal muscle facilitation PT-OP-Q Treatments Start: 11/30/22 11:30 Freq: Status: Active Protocol: Document 01/18/23 13:31 [facility] (Rec: 01/18/23 14:16 [facility] [id number]) Therapeutic Exercises Supine Exercises templates for coordination and eccentric control Reps/Minutes x 8 min quick pelvic floor contractions Comments 21.2 max pelvic floor long holds Reps/Minutes 10 sec hold and 10 sec relax Comments 10.2 max of 20.1 Sidelying Exercises clam shells with resistance Reps/Minutes 2 x 10 Standing Exercises squats with pelvic floor engagement Reps/Minutes x 10 reps Self-Care/Home Management Treatment Education Patient Education Home Exercise Program Other Education HOME exercise program reviewed and pt is independent with her home program PT-OP-T Assessment and Plan Start: 11/30/22 11:30 Freq: Status: Active Protocol: Document 01/18/23 13:31 [facility] (Rec: 01/18/23 14:16 [facility] [id number]) Physical Therapy Assessment Goals 3 Impairment Urinary incontinence with coughing and sneezing Renal Medicine Physician Goal (LTG) Ayleen reports a overall reduction in urinary leakage with activitiy and is no longer needing to wear a pad for protection Pt feels that this is improved , she still wears a liner just in case. LTG Duration 12 weeks 2 Impairment Decreased pelvic floor endurance Short Term Goal (STG) Ayleen is able to sustain a pelvic floor contraction in supine x 10 seconds GOAL MET STG Duration 4 weeks Fdc Goal (LTG) ayleen is able to sustain a pelvic floor contraction in standing 5-10 seconds Good progress, Ayleen is able to work on her quick contractions in standing. LTG Duration 12 weeks 1 Impairment Pelvic floor weakness with rectocele and c/o pelvic heaviness Short Term Goal (STG) pt is educated on pelvic foor endurance training and ways to decompress the pelvis taking pressure off the pelvic organs GOAL MET STG Duration 5 weeks Renal Medicine Physician Goal (LTG) Pt demonstrates improved strength of the pelvic floor to 3/5 MMT or better and reports a decrease in pelvic floor heaviness and pressure IF she has a bowel movement every morning she notes she is good and is not feeling the pressure. For the most part her c/o heaviness has been greatly improved LTG Duration 12 weeks Assessment Summary Assessment Ayleen has made good overall progress. She reports a decrease in urinary leakage and for the most part is not feeling the pelvic pressure now. Ayleen realizes now that if her bowels are full it puts pressure on her bladder. She has been able to keep herself regular for the most part however if she has a day where she hasn't had a bowel movement she will feel pelvic pressure. At this point she is IND with her HEP and will be discharged from PT. Physical Therapy Plan Frequency and Duration Frequency of Treatment 1x/Week Duration of treatment (weeks) 12 Plan of Care Start Date 11/30/22 Plan of Care End Date 02/22/23 Discharge Physical Therapy Discharge Reasons No Longer Attending PT Discharge Comments pt had her last visit in PT today, she has made good progress towards her goals and will be discharged to a [facility]
== END 2023-01-19 14:21 | disposition home or self-care (01) ==
LOC: PHYS 13:30
PROVIDERS: Family Provider Family Medicine; PCP Family Medicine; Referring Provider Family Medicine; Visit Provider Family Medicine
DX: N81.6 Rectocele (principal)
CPT/HCPCS: 97110; 97140; 97161; 97535

== ENCOUNTER → 2023-05-11 08:12 | Outpatient (CLI) | payer OTHER, SELFPAY ==
--- NOTE | 2023-05-11 08:13 | DI.US.S_ITS ---
PROCEDURE: US ABDOMEN LIMITED INDICATIONS: RIGHT UPPER QUADRANT PAIN WITH PALPABLE AREA. TECHNIQUE: Real-time scanning was performed of the abdominal and retroperitoneal organs, with image documentation. COMPARISON: [facility], CT, CT ABDOMEN PELVIS W CON, 09/08/2021, 18:45. [facility], US, US ABDOMEN LIMITED, 05/18/2022, 12:49. FINDINGS: Liver: Homogeneous echotexture. No evidence of focal mass lesion. No intra hepatic biliary ductal dilatation Gallbladder: Sonolucent without cholelithiasis. No gallbladder wall thickening. No pericholecystic fluid or Yang's sign. Common Bile Duct: 4.4 mm. Pancreas: Unremarkable as visualized IMPRESSION: 1. Unremarkable right upper quadrant ultrasound Approved by: Dennis Lindsey M.D. on 05/11/2023 at 10:43
[2023-05-11 09:30] LABS: Add Manual Diff / Slide Review NO; Basophils Absolute Auto 100 /uL (0-100); Basophils Percent Auto 0.8 % (0-2); Eosinophils Absolute Auto 100 /uL (0-450); Eosinophils Percent Auto 0.8 % (2-4); Hematocrit 36.7 % (36-46); Hemoglobin 12.5 g/dL (12.0-16.0); Lymphocytes Absolute Auto 2100 /uL (1100-4500); Lymphocytes Percent Auto 26.7 % (25-40); Mean Corpuscular HGB Conc 33.9 % (30-36); Mean Corpuscular Hemoglobin 30.6 PG (26-34); Mean Corpuscular Volume 90.3 fL (80-100); Monocytes Absolute Auto 500 /uL (0-900); Monocytes Percent Auto 6.2 % (3-14); Neutrophils Absolute Auto 5100 /uL (1500-7000); Neutrophils Percent Auto 65.5 % (50-75); Platelet Count 366 X10^3/uL (150-400); Red Blood Cell Count 4.07 X10^6/uL (4.0-5.2); Red Cell Distribution Width 13.1 % (11.6-14.8); White Blood Cell Count 7.9 X10^3/uL (4.5-11.0)
[2023-05-11 09:56] LABS: Alanine Aminotransferase 18 IU/L (<35); Albumin 4.3 g/dL (3.5-5.0); Albumin Globulin Ratio 1.6 (1.0-2.8); Alkaline Phosphatase 77 U/L (38-126); Aspartate Aminotransferase 32 IU/L (14-36); BUN Creatinine Ratio 18.1 (6-22); Bilirubin Total 0.4 mg/dL (0.2-1.3); Blood Urea Nitrogen 15 mg/dL (7-17); Calcium 10.2 mg/dL (8.4-10.2); Carbon Dioxide 30 mmol/L (22-32); Chloride 99 mmol/L (98-107); Cholesterol 170 mg/dL (140-199); Estimated Glomerular Filt Rate > 60 mL/min (>60); Globulin 2.7 g/dL (1.7-4.1); Glucose 93 mg/dL (80-110); HDL Cholesterol 55 mg/dL (40-60); HEMOLYSIS < 15 (0-50); LDL Cholesterol Calculated 84 mg/dL (<100); Potassium 4.3 mmol/L (3.4-5.1); Sodium 137 mmol/L (137-145); Triglycerides 155 mg/dL (35-150)
[2023-05-11 09:59] LABS: High Sensitivity CRP - Cardiac 1.7 mg/L (1.0-3.0)
[2023-05-11 10:47] LABS: Appearance Urine UA CLEAR; Bilirubin Urine UA NEGATIVE (NEGATIVE); Color Urine UA YELLOW; Glucose Urine UA NEGATIVE (Negative); Ketones Urine UA NEGATIVE (NEGATIVE); Leukocyte Esterase Urine UA NEGATIVE (NEGATIVE); Nitrite Urine UA NEGATIVE (Negative); Occult Blood Urine UA TRACE-INTACT (Negative); Protein Urine UA NEGATIVE (Negative); Urobilinogen Urine UA 0.2 E.U./dL (0.2)
[2023-05-11 10:49] LABS: pH Urine UA 5.5 (4.5-8.0)
[2023-05-11 10:50] LABS: Bacteria Urine Few (2-10); Culture Indicated Urine Cult Not Indicated; RBC Urine 1-5/HPF (0-5/HPF); Squamous Epithelial Cell Urine 10-30 /HPF (0-5/HPF); WBC Urine 0-1/HPF (0-5/HPF)
== END ==
PROVIDERS: Family Provider Family Medicine; PCP Family Medicine; Referring Provider Family Medicine; Visit Provider Family Medicine
DX: R10.11 Right upper quadrant pain (principal); I10 Essential (primary) hypertension; E78.5 Hyperlipidemia, unspecified; R30.0 Dysuria
CPT/HCPCS: 36415; 76705; 80053; 80061; 81001; 85025; 86140

== ENCOUNTER 2024-05-17 09:45 | Outpatient (RCR) | payer OTHER, SELFPAY ==
--- NOTE | 2024-02-09 16:30 | PT.OPPOC ---
Physical, Occupational & Speech Therapy At [facility] Current Diagnoses Pelvic muscle wasting (02/14/24) Female genital prolapse, unspecified (02/14/24) Postmenopausal atrophic vaginitis (02/14/24) Visit Care Team Role Provider Type Ligia Mensah DO Attending Provider Physician Family Provider Primary Care Provider Referring Provider Specialty: Medical Address: [address] [place] [address], [address], [place], [address] Email: [email or web address] Plan Of Care PT-OP-T Assessment and Plan Start: 02/09/24 08:12 Freq: Status: Active Protocol: Document 02/09/24 15:15 [facility] (Rec: 02/14/24 10:44 [facility] [id number]) Physical Therapy Assessment Rehab Potential Rehabilitation Potential Good Evaluation Complexity Number of Personal Factors/Comorbidities 0 Number of Body Systems Impaired 1-2 Clinical Presentation at Evaluation Stable Impairments Impairments Activity Tolerance,Functional Activities,Strength,Tone Other Impairments pelvic organ prolapse, heaviness and pelvic pressure Goals 3 Impairment Urinary incontinence with coughing and sneezing Fpc Goal (LTG) Ayleen reports overall decrease in urinary incontinence with cough and sneeze and is able to brace with her pelvic floor prior to a cough or sneeze LTG Duration 12 weeks 2 Impairment Decreased pelvic floor endurance Short Term Goal (STG) Ayleen is able to sustain a pelvic floor contraction in supine for 10 seconds without upper abdominal substitution STG Duration 5 weeks Fpc Goal (LTG) Ayleen is able to sustain a pelvic floor contraction in standing x 5 seconds LTG Duration 12 weeks 1 Impairment Pelvic floor weakness with rectocele/cystocele and c/o pelvic heaviness Short Term Goal (STG) Ayleen is educated on bowel training to encourage a daily bowel movement decreasing pelvic pressure STG Duration 4 weeks Fpc Goal (LTG) Ayleen is able to return to squats using proper form to decrease downward pressure on her pelvis and she is no longer experiencing the pelvic heaviness symptoms LTG Duration 12 weeks Assessment Summary Assessment Ayleen is a 79 year old female with worsening symptoms of pelvic organ prolapse. She has a history of a hysterectomy in 1984 and has done previous PT for pelvic floor strengthening but feels she needs a tune up. Ayleen notes she has been doing a exercise class at the [facility] since July 2022 that involves a lot of squats and she is wondering if she is pushing too hard with these as symptoms have worsened in the past few months. Ayleen reports that she typically has a bowel movement in the am but if she misses a day she will feel increased pelvic pressure and can visually see her prolapse. She does note a small amount of urinary leakage as well. With exam I had Ayleen show me her squats she is doing in class and she was bending forward from her spine almost as if she was doing a standing abdominal crunch. I explained to her how downward pressure from the upper abdominal wall can put pressure down onto the pelvic organs. She was shown how to squat with a hip hinge instead of curing her trunk. In supine while performing her pelvic floor isolations she is also using her upper abdominal wall creating a downward force through her pelvis. Time was spent on education to isolate at the pelvic floor without upper abdominal substitution. Ayleen is able to facilitate a pelvic floor contraction of all nicholson of the levator ani however is it is much more difficult for her to isolate her pelvic floor without the upper abdominal wall valerie. She lacks endurance of her pelvic floor holds. There is both a cystocele and rectocele noted with exam today. Ayleen was shown how to decompress her pelvis with a wedge under her hips to slightly invert her pelvis. She was educated on taking a couple rest breaks during her day at least 10 min to decompress her pelvis. Ayleen tolerated this well and felt good about her home program. She is a good candidate for PT for pelvic floor retraining as well as educating her on her general exercise program to avoid undue strain on her pelvic organs. Physical Therapy Plan Frequency and Duration Frequency of Treatment 1x/Week Duration of treatment (weeks) 12 Plan of Care Start Date 02/09/24 Plan of Care End Date 05/03/24 Therapeutic Interventions Therapeutic Interventions Home Exercise Program, Neuromuscular Re-education, Patient/Caregiver Education, Self-Care/Home Management, Therapeutic Exercises Modalities Biofeedback Next Visit Focus/Plan Next Note Type Treatment Note Next Visit Plan EMG biofeedback for pelvic floor endurance training, manual fascial work over the lower abdominal wall/suprapubic fascia as well as over the colon Plan of Care Dates Plan of Care Start Date 02/09/24 Plan of Care End Date 05/03/24 Electronically Signed by: Shani Tomas, PT 02/14/24 1104 If you are in agreement with this Plan of Care, please return a signed and dated copy. I have reviewed this Plan of Care and certify that the skilled therapy services above are required to meet the patient?s needs. Physician Signature Date Printed Name and Credentials Clinical Instructor Signature Printed Name and Credentials
--- NOTE | 2024-02-09 16:30 | PT.OIE ---
Current Diagnoses Pelvic muscle wasting (02/14/24) Female genital prolapse, unspecified (02/14/24) Postmenopausal atrophic vaginitis (02/14/24) Past Medical History (Last Updated 11/29/23 @ 09:06 by Ligia Mensah DO) Vera esophagus (~2011) Endometriosis (~1983) Hemorrhoid (~1989) High cholesterol HTN (hypertension) (~1999) Osteoarthritis (~2003) Osteopenia (~1999) Personal history of colonic polyps Plantar fascia syndrome (~2021) Rectocele (~2020) Past Surgical History (Last Updated 06/21/23 @ 08:53 by Ligia Mensah DO) Anesthesia History of cardiac radiofrequency ablation Hx of hysterectomy (~1984) Visit Care Team Role Provider Type Ligia Mensah DO Attending Provider Physician Family Provider Primary Care Provider Referring Provider Specialty: Medical Address: [address] [place] [address], [address], [place], [address] Email: [email or web address] Physical Therapy Initial Evaluation PT-OP-A Visit Information Start: 02/09/24 08:12 Freq: Status: Active Protocol: Document 02/09/24 15:18 [facility] (Rec: 02/09/24 15:28 [facility] [id number]) Out-Patient Physical Therapy Visit Information Visit Information Visit Type Initial Evaluation Visit Start Time 15:20 Visit Stop Time 16:00 Visit Number 1 Evaluation Information Evaluation Date 02/09/24 PT-OP-B Current Condition Start: 02/09/24 08:12 Freq: Status: Active Protocol: Document 02/09/24 15:15 [facility] (Rec: 02/09/24 15:28 [facility] [id number]) Current Condition History of Current Condition Onset Date July History of Current Condition pt notes she does exercises everymorning before she gets out of bed. In July she started a fitness class that includes a lot of squats. she can keep up most of the time but the she realized that maybe the squats started aggravating her pelvic organ prolapse in the past couple of months. Pt notes she can see her prolapse, she can feel it and when she sits she has to reagust things. She usually has a bowel movement in the am and if she doesn't then she has a lot of pressure. She has a small amount of leakage. IF she has been on her feet it is slow and coming out. Prior Treatments and Tests pt has been diagnosed with diverticulitis, it flares up every once in a whole history of hysterectomy PT-OP-C Subjective Start: 02/09/24 08:12 Freq: Status: Active Protocol: Document 02/09/24 15:15 [facility] (Rec: 02/14/24 11:04 [facility] [id number]) Patient Questionnaires Pelvic Pain and Urgency/Frequency Patient Symptom Scale Pelvic Pain Score 7 OP-PT Pain Assessment Pain Assessment Grid Paper Pain Assessment Grid Completed Yes Location pelvic pain Pain Location Details left greater than right lower pelvis and vaginal wall Intensity 6 Scale Used Numeric (0 - 10) Description Pressure,Tender,Tightness,With Movement PT-OP-I Pelvic Floor Start: 02/09/24 08:12 Freq: Status: Active Protocol: Document 02/09/24 15:15 [facility] (Rec: 02/09/24 16:24 [facility] [id number]) Pelvic Floor Assessment Urine Pelvic Floor Surgery Yes: hysterectomy 1985 Urinary Symptoms Incomplete Emptying,Falling Out Feeling/Heavy Other Urinary Symptoms rectocele Leakage Size Small Pelvic Clock Pelvic Clock 12-3 Atrophy Pelvic Clock 3-6 Atrophy Pelvic Clock 6-9 Atrophy Pelvic Clock 9-12 Atrophy Prolapse Cystocele Grade 3 Rectocele Grade 2 Prolapse Comments cystocele is visable at the introitus, pt notes it has progressed in the past couple of months history of hysterectomy Contraction Ability Voluntary Contraction Moderate Voluntary Relaxation Moderate Manual Muscle Testing Left 3 Manual Muscle Testing Right 3 Manual Muscle Testing Anterior 3 Manual Muscle Testing Posterior 3 Comments Pelvic Floor Comments Ayleen is able to tighten her pelvic floor however she is also compressing down through the abdominal wall which is most likely placing pressure on the bladder. PT-OP-Q Treatments Start: 02/09/24 08:12 Freq: Status: Active Protocol: Document 02/09/24 15:53 [facility] (Rec: 02/09/24 16:19 [facility] [id number]) Therapeutic Exercises Supine Exercises pelvic floor long holds Reps/Minutes 14.5 28.9 uv max Sidelying Exercises clam shells Reps/Minutes 3 x 10 reps Other Exercises supported michael pose for pelvic floor contract relax Reps/Minutes worked on pelvic floor contractions in this position Self-Care/Home Management Treatment Education Patient Education Home Exercise Program,Pain Management Other Education Ayleen was educated in elevation of the hips to take pressure off the pelvic organs. She was also educated in self stretching upwards of the suprapubic fascia for bladder mobilization PT-OP-T Assessment and Plan Start: 02/09/24 08:12 Freq: Status: Active Protocol: Document 02/09/24 15:15 [facility] (Rec: 02/14/24 10:44 [facility] [id number]) Physical Therapy Assessment Rehab Potential Rehabilitation Potential Good Evaluation Complexity Number of Personal Factors/Comorbidities 0 Number of Body Systems Impaired 1-2 Clinical Presentation at Evaluation Stable Impairments Impairments Activity Tolerance,Functional Activities,Strength,Tone Other Impairments pelvic organ prolapse, heaviness and pelvic pressure Goals 3 Impairment Urinary incontinence with coughing and sneezing Nailing Machine Feeder Goal (LTG) Ayleen reports overall decrease in urinary incontinence with cough and sneeze and is able to brace with her pelvic floor prior to a cough or sneeze LTG Duration 12 weeks 2 Impairment Decreased pelvic floor endurance Short Term Goal (STG) Ayleen is able to sustain a pelvic floor contraction in supine for 10 seconds without upper abdominal substitution STG Duration 5 weeks Nailing Machine Feeder Goal (LTG) Ayleen is able to sustain a pelvic floor contraction in standing x 5 seconds LTG Duration 12 weeks 1 Impairment Pelvic floor weakness with rectocele/cystocele and c/o pelvic heaviness Short Term Goal (STG) Ayleen is educated on bowel training to encourage a daily bowel movement decreasing pelvic pressure STG Duration 4 weeks Nailing Machine Feeder Goal (LTG) Ayleen is able to return to squats using proper form to decrease downward pressure on her pelvis and she is no longer experiencing the pelvic heaviness symptoms LTG Duration 12 weeks Assessment Summary Assessment Ayleen is a 79 year old female with worsening symptoms of pelvic organ prolapse. She has a history of a hysterectomy in 1984 and has done previous PT for pelvic floor strengthening but feels she needs a tune up. Ayleen notes she has been doing a exercise class at the [employer] since July 2022 that involves a lot of squats and she is wondering if she is pushing too hard with these as symptoms have worsened in the past few months. Ayleen reports that she typically has a bowel movement in the am but if she misses a day she will feel increased pelvic pressure and can visually see her prolapse. She does note a small amount of urinary leakage as well. With exam I had Ayleen show me her squats she is doing in class and she was bending forward from her spine almost as if she was doing a standing abdominal crunch. I explained to her how downward pressure from the upper abdominal wall can put pressure down onto the pelvic organs. She was shown how to squat with a hip hinge instead of curing her trunk. In supine while performing her pelvic floor isolations she is also using her upper abdominal wall creating a downward force through her pelvis. Time was spent on enducation to isolate at the pelvic floor without upper abdominal substitution. Ayleen is able to facilitate a pelvic floor contraction of all nicholson of the levator ani however is it is much more difficult for her to isolate her pelvic floor without the upper abdominal wall valerie. She lacks endurance of her pelvic floor holds. There is both a cystocele and rectocele noted with exam today. Ayleen was shown how to decompress her pelvis with a wedge under her hips to slightly invert her pelvis. She was educated on taking a couple rest breaks during her day at least 10 min to decompress her pelvis. Ayleen tolerated this well and felt good about her home program. She is a good candidate for PT for pelvic floor retraining as well as educating her on her general exercise program to avoid undue strain on her pelvic organs. Physical Therapy Plan Frequency and Duration Frequency of Treatment 1x/Week Duration of treatment (weeks) 12 Plan of Care Start Date 02/09/24 Plan of Care End Date 05/03/24 Therapeutic Interventions Therapeutic Interventions Home Exercise Program, Neuromuscular Re-education, Patient/Caregiver Education, Self-Care/Home Management, Therapeutic Exercises Modalities Biofeedback Next Visit Focus/Plan Next Note Type Treatment Note Next Visit Plan EMG biofeedback for pelvic floor endurance training, manual fascial work over the lower abdomian wall/suprapubic fascia as well as over the colon
--- NOTE | 2024-02-14 11:13 | PT.OTN ---
Current Diagnoses Pelvic muscle wasting (02/14/24) Female genital prolapse, unspecified (02/14/24) Postmenopausal atrophic vaginitis (02/14/24) Physical Therapy Treatment Note PT-OP-A Visit Information Start: 02/09/24 08:12 Freq: Status: Active Protocol: Document 02/14/24 09:45 [facility] (Rec: 02/14/24 11:13 [facility] [id number]) Out-Patient Physical Therapy Visit Information Visit Information Visit Type Treatment Note Visit Start Time 09:45 Visit Stop Time 10:30 Visit Number 2 PT-OP-B Current Condition Start: 02/09/24 08:12 Freq: Status: Active Protocol: Document 02/09/24 15:15 [facility] (Rec: 02/09/24 15:28 [facility] [id number]) Current Condition History of Current Condition Onset Date July History of Current Condition pt notes she does exercises everymorning before she gets out of bed. In July she started a fitness class that includes a lot of squats. she can keep up most of the time but the she realized that maybe the squats started aggravating her pelvic organ prolapse in the past couple of months. Pt notes she can see her prolapse, she can feel it and when she sits she has to reagust things. She usually has a bowel movement in the am and if she doesn't then she has a lot of pressure. She has a small amount of leakage. IF she has been on her feet it is slow and coming out. Prior Treatments and Tests pt has been diagnosed with diverticulitis, it flares up every once in a whole history of hysterectomy PT-OP-C Subjective Start: 02/09/24 08:12 Freq: Status: Active Protocol: Document 02/14/24 09:45 [facility] (Rec: 02/14/24 11:13 [facility] [id number]) OP-PT Subjective Patient Comments Patient Comments Ayleen reports she feels that if she hasn't had a bowel movement her symptoms are worse PT-OP-I Pelvic Floor Start: 02/09/24 08:12 Freq: Status: Active Protocol: Document 02/09/24 15:15 [facility] (Rec: 02/09/24 16:24 [facility] [id number]) Pelvic Floor Assessment Urine Pelvic Floor Surgery Yes: hysterectomy 1985 Urinary Symptoms Incomplete Emptying,Falling Out Feeling/Heavy Other Urinary Symptoms rectocele Leakage Size Small Pelvic Clock Pelvic Clock 12-3 Atrophy Pelvic Clock 3-6 Atrophy Pelvic Clock 6-9 Atrophy Pelvic Clock 9-12 Atrophy Prolapse Cystocele Grade 3 Rectocele Grade 2 Prolapse Comments cystocele is visable at the introitus, pt notes it has progressed in the past couple of months history of hysterectomy Contraction Ability Voluntary Contraction Moderate Voluntary Relaxation Moderate Manual Muscle Testing Left 3 Manual Muscle Testing Right 3 Manual Muscle Testing Anterior 3 Manual Muscle Testing Posterior 3 Comments Pelvic Floor Comments Ayleen is able to tighten her pelvic floor however she is also compressing down through the abdominal wall which is most likely placing pressure on the bladder. PT-OP-Q Treatments Start: 02/09/24 08:12 Freq: Status: Active Protocol: Document 02/14/24 09:45 [facility] (Rec: 02/14/24 11:13 [facility] [id number]) Therapeutic Exercises Supine Exercises pelvic floor long holds Supine Exercise Name pt in modified squat position on her back Reps/Minutes 10 reps holding 10 seconds Comments 14.1 uv average and 39.2 max Sidelying Exercises clam shells Reps/Minutes 3 x 10 reps Other Exercises supported michael pose for pelvic floor contract relax Reps/Minutes worked on pelvic floor contractions in this position Manual Therapy Treatment Soft Tissue Mobilization ILU massage Mobilization Type Myofascial Release Intensity/Depth Moderate Body Position Hooklying Comments worked on ILU massage over the colon and pts home massage was revieiwed suprapubic fascia MFR Mobilization Type Myofascial Release Intensity/Depth Moderate Body Position Hooklying Comments worked on the suprapubic fasica and mobilization of the bladder Self-Care/Home Management Treatment Education Patient Education Body Mechanics,Home Exercise Program Other Education body mechanics for squatting were reviewed and HEP was given PT-OP-T Assessment and Plan Start: 02/09/24 08:12 Freq: Status: Active Protocol: Document 02/14/24 09:45 [facility] (Rec: 02/14/24 11:13 [facility] [id number]) Physical Therapy Assessment Assessment Summary Assessment Ayleen prefers modified squat position for pelvic floor exercises as it allows her to keep her upper abdominal wall relaxed. She will also try modified michael pose position as well for home program Physical Therapy Plan Frequency and Duration Frequency of Treatment 1x/Week Duration of treatment (weeks) 12 Plan of Care Start Date 02/09/24 Plan of Care End Date 05/03/24 Therapeutic Interventions Therapeutic Interventions Home Exercise Program, Neuromuscular Re-education, Patient/Caregiver Education, Self-Care/Home Management, Therapeutic Exercises Modalities Biofeedback Next Visit Focus/Plan Next Note Type Treatment Note Next Visit Plan continue with pelvic floor endurance training, hip strengtheing, Fascial work over the abdominal wall
--- NOTE | 2024-02-23 16:06 | PT.OTN ---
Current Diagnoses Pelvic muscle wasting (02/23/24) Female genital prolapse, unspecified (02/23/24) Postmenopausal atrophic vaginitis (02/23/24) Physical Therapy Treatment Note PT-OP-A Visit Information Start: 02/09/24 08:12 Freq: Status: Active Protocol: Document 02/23/24 13:02 [facility] (Rec: 02/23/24 13:41 [facility] [id number]) Out-Patient Physical Therapy Visit Information Visit Information Visit Type Treatment Note Visit Start Time 13:00 Visit Stop Time 13:45 Visit Number 3 PT-OP-B Current Condition Start: 02/09/24 08:12 Freq: Status: Active Protocol: Document 02/09/24 15:15 [facility] (Rec: 02/09/24 15:28 [facility] [id number]) Current Condition History of Current Condition Onset Date July History of Current Condition pt notes she does exercises everymorning before she gets out of bed. In July she started a fitness class that includes a lot of squats. she can keep up most of the time but the she realized that maybe the squats started aggravating her pelvic organ prolapse in the past couple of months. Pt notes she can see her prolapse, she can feel it and when she sits she has to reagust things. She usually has a bowel movement in the am and if she doesn't then she has a lot of pressure. She has a small amount of leakage. IF she has been on her feet it is slow and coming out. Prior Treatments and Tests pt has been diagnosed with diverticulitis, it flares up every once in a whole history of hysterectomy PT-OP-C Subjective Start: 02/09/24 08:12 Freq: Status: Active Protocol: Document 02/23/24 13:02 [facility] (Rec: 02/23/24 13:41 [facility] [id number]) OP-PT Subjective Patient Comments Patient Comments pt notes she had a good week she has been working on her exercises and is feeling a little better, she is also trying not to bend forward from her waist for her squats in her exercises class and keeping her squats smaller Patient Reported Progress Improving PT-OP-I Pelvic Floor Start: 02/09/24 08:12 Freq: Status: Active Protocol: Document 02/09/24 15:15 [facility] (Rec: 02/09/24 16:24 [facility] [id number]) Pelvic Floor Assessment Urine Pelvic Floor Surgery Yes: hysterectomy 1985 Urinary Symptoms Incomplete Emptying,Falling Out Feeling/Heavy Other Urinary Symptoms rectocele Leakage Size Small Pelvic Clock Pelvic Clock 12-3 Atrophy Pelvic Clock 3-6 Atrophy Pelvic Clock 6-9 Atrophy Pelvic Clock 9-12 Atrophy Prolapse Cystocele Grade 3 Rectocele Grade 2 Prolapse Comments cystocele is visable at the introitus, pt notes it has progressed in the past couple of months history of hysterectomy Contraction Ability Voluntary Contraction Moderate Voluntary Relaxation Moderate Manual Muscle Testing Left 3 Manual Muscle Testing Right 3 Manual Muscle Testing Anterior 3 Manual Muscle Testing Posterior 3 Comments Pelvic Floor Comments Ayleen is able to tighten her pelvic floor however she is also compressing down through the abdominal wall which is most likely placing pressure on the bladder. PT-OP-Q Treatments Start: 02/09/24 08:12 Freq: Status: Active Protocol: Document 02/23/24 13:02 [facility] (Rec: 02/23/24 13:41 [facility] [id number]) Therapeutic Exercises Supine Exercises supine ball squeeze with pelvic epifanio Reps/Minutes x 10 reps quick flicks Reps/Minutes x 15 reps Comments 22.5 uv pelvic floor long holds Reps/Minutes 10 reps holding 10 seconds Comments 15.2 max 29.0 Sidelying Exercises clam shells Reps/Minutes 3 x 10 reps Comments hold 10 seconds Manual Therapy Treatment Soft Tissue Mobilization ILU massage Mobilization Type Myofascial Release Intensity/Depth Moderate Body Position Hooklying Comments worked on ILU massage over the colon and pts home massage was revieiwed, tenderness on the left descending colon suprapubic fascia MFR Mobilization Type Myofascial Release Intensity/Depth Moderate Body Position Hooklying Comments worked on the suprapubic fasica and mobilization of the bladder PT-OP-T Assessment and Plan Start: 02/09/24 08:12 Freq: Status: Active Protocol: Document 02/23/24 13:02 [facility] (Rec: 02/23/24 13:41 [facility] [id number]) Physical Therapy Assessment Assessment Summary Assessment Ayleen is cued to hinge at her hips with squats so she doesn; t bend from the waist clam shells help with endurance for her as she can hold steady x 10 seconds She is doing better with her symptoms of prolapse not as severe as they were Physical Therapy Plan Frequency and Duration Frequency of Treatment 1x/Week Duration of treatment (weeks) 12 Plan of Care Start Date 02/09/24 Plan of Care End Date 10/10/24 Next Visit Focus/Plan Next Note Type Treatment Note Next Visit Plan continue with pelvic floor endurance training, hip strengtheing, Fascial work over the abdominal wall
--- NOTE | 2024-03-07 14:05 | PT.OTN ---
Current Diagnoses Pelvic muscle wasting (03/07/24) Female genital prolapse, unspecified (03/07/24) Postmenopausal atrophic vaginitis (03/07/24) Physical Therapy Treatment Note PT-OP-A Visit Information Start: 02/09/24 08:12 Freq: Status: Active Protocol: Document 03/07/24 08:15 [facility] (Rec: 03/07/24 14:02 [facility] [id number]) Out-Patient Physical Therapy Visit Information Visit Information Visit Type Treatment Note Visit Start Time 08:15 Visit Stop Time 09:00 Visit Number 4 PT-OP-B Current Condition Start: 02/09/24 08:12 Freq: Status: Active Protocol: Document 02/09/24 15:15 [facility] (Rec: 02/09/24 15:28 [facility] [id number]) Current Condition History of Current Condition Onset Date July History of Current Condition pt notes she does exercises everymorning before she gets out of bed. In July she started a fitness class that includes a lot of squats. she can keep up most of the time but the she realized that maybe the squats started aggravating her pelvic organ prolapse in the past couple of months. Pt notes she can see her prolapse, she can feel it and when she sits she has to reagust things. She usually has a bowel movement in the am and if she doesn't then she has a lot of pressure. She has a small amount of leakage. IF she has been on her feet it is slow and coming out. Prior Treatments and Tests pt has been diagnosed with diverticulitis, it flares up every once in a whole history of hysterectomy PT-OP-C Subjective Start: 02/09/24 08:12 Freq: Status: Active Protocol: Document 03/07/24 08:16 [facility] (Rec: 03/07/24 09:02 [facility] [id number]) OP-PT Subjective Patient Comments Patient Comments pt notes she had a bout with diverticulitis and had to go to the walk in clinic, she was put on antibiotics. Everything seems inflamed and she started her antibiotics on the 01 of March and its for 10 days. She is feeling better but everything felt inflammed. PT-OP-I Pelvic Floor Start: 02/09/24 08:12 Freq: Status: Active Protocol: Document 02/09/24 15:15 [facility] (Rec: 02/09/24 16:24 [facility] [id number]) Pelvic Floor Assessment Urine Pelvic Floor Surgery Yes: hysterectomy 1985 Urinary Symptoms Incomplete Emptying,Falling Out Feeling/Heavy Other Urinary Symptoms rectocele Leakage Size Small Pelvic Clock Pelvic Clock 12-3 Atrophy Pelvic Clock 3-6 Atrophy Pelvic Clock 6-9 Atrophy Pelvic Clock 9-12 Atrophy Prolapse Cystocele Grade 3 Rectocele Grade 2 Prolapse Comments cystocele is visable at the introitus, pt notes it has progressed in the past couple of months history of hysterectomy Contraction Ability Voluntary Contraction Moderate Voluntary Relaxation Moderate Manual Muscle Testing Left 3 Manual Muscle Testing Right 3 Manual Muscle Testing Anterior 3 Manual Muscle Testing Posterior 3 Comments Pelvic Floor Comments Ayleen is able to tighten her pelvic floor however she is also compressing down through the abdominal wall which is most likely placing pressure on the bladder. PT-OP-Q Treatments Start: 02/09/24 08:12 Freq: Status: Active Protocol: Document 03/07/24 08:16 [facility] (Rec: 03/07/24 09:02 [facility] [id number]) Therapeutic Exercises Supine Exercises roll outs with theraband Reps/Minutes x 20 supine ball squeeze with pelvic epifanio Reps/Minutes x 10 reps quick flicks Reps/Minutes x 15 reps Comments 29.1 uv max pelvic floor long holds Supine Exercise Name with bolster Reps/Minutes 10 reps holding 10 seconds Comments 14.4 average max 30 uv Other Exercises michael pose with pelvic floor contraction Reps/Minutes hold 3-4 min quadruped sidebends Reps/Minutes x 10 reps each cat cow Reps/Minutes x 10 reps PT-OP-T Assessment and Plan Start: 02/09/24 08:12 Freq: Status: Active Protocol: Document 03/07/24 08:16 [facility] (Rec: 03/07/24 09:02 [facility] [id number]) Physical Therapy Assessment Assessment Summary Assessment Time was spent today working on pelvic decompression from a quadruped position as well as in modified michael pose. Ayleen felt she could do her pelvic floor exercises from modified michael pose position as well. She felt much more imflammed and irritated today from her pelvic organ prolapse Physical Therapy Plan Frequency and Duration Frequency of Treatment 1x/Week Duration of treatment (weeks) 12 Plan of Care Start Date 02/09/24 Plan of Care End Date 05/03/24 Therapeutic Interventions Therapeutic Interventions Home Exercise Program, Neuromuscular Re-education, Patient/Caregiver Education, Self-Care/Home Management, Therapeutic Exercises Modalities Biofeedback Next Visit Focus/Plan Next Note Type Treatment Note Next Visit Plan reassess Ayleen's symptoms next visit, continue with pelvic floor endurance training and hip strengthening
--- NOTE | 2024-03-20 17:05 | PT.OTN ---
Current Diagnoses Pelvic muscle wasting (03/20/24) Female genital prolapse, unspecified (03/20/24) Postmenopausal atrophic vaginitis (03/20/24) Physical Therapy Treatment Note PT-OP-A Visit Information Start: 02/09/24 08:12 Freq: Status: Active Protocol: Document 03/20/24 13:00 [facility] (Rec: 03/20/24 13:47 [facility] [id number]) Out-Patient Physical Therapy Visit Information Visit Information Visit Type Treatment Note Visit Start Time 13:00 Visit Stop Time 13:45 Visit Number 5 PT-OP-B Current Condition Start: 02/09/24 08:12 Freq: Status: Active Protocol: Document 02/09/24 15:15 [facility] (Rec: 02/09/24 15:28 [facility] [id number]) Current Condition History of Current Condition Onset Date July History of Current Condition pt notes she does exercises everymorning before she gets out of bed. In July she started a fitness class that includes a lot of squats. she can keep up most of the time but the she realized that maybe the squats started aggravating her pelvic organ prolapse in the past couple of months. Pt notes she can see her prolapse, she can feel it and when she sits she has to reagust things. She usually has a bowel movement in the am and if she doesn't then she has a lot of pressure. She has a small amount of leakage. IF she has been on her feet it is slow and coming out. Prior Treatments and Tests pt has been diagnosed with diverticulitis, it flares up every once in a whole history of hysterectomy PT-OP-C Subjective Start: 02/09/24 08:12 Freq: Status: Active Protocol: Document 03/20/24 13:00 [facility] (Rec: 03/20/24 13:47 [facility] [id number]) OP-PT Subjective Patient Comments Patient Comments Ayleen reports she has been on a antibiotic and then got a yeast infection. she did get a referral for a gynocologist too. She has been doing her pelvic floor exercises which help but it is only temporary. She feels things have started to calm back down but she is waning a obgyn consult. PT-OP-I Pelvic Floor Start: 02/09/24 08:12 Freq: Status: Active Protocol: Document 02/09/24 15:15 [facility] (Rec: 02/09/24 16:24 [facility] [id number]) Pelvic Floor Assessment Urine Pelvic Floor Surgery Yes: hysterectomy 1985 Urinary Symptoms Incomplete Emptying,Falling Out Feeling/Heavy Other Urinary Symptoms rectocele Leakage Size Small Pelvic Clock Pelvic Clock 12-3 Atrophy Pelvic Clock 3-6 Atrophy Pelvic Clock 6-9 Atrophy Pelvic Clock 9-12 Atrophy Prolapse Cystocele Grade 3 Rectocele Grade 2 Prolapse Comments cystocele is visable at the introitus, pt notes it has progressed in the past couple of months history of hysterectomy Contraction Ability Voluntary Contraction Moderate Voluntary Relaxation Moderate Manual Muscle Testing Left 3 Manual Muscle Testing Right 3 Manual Muscle Testing Anterior 3 Manual Muscle Testing Posterior 3 Comments Pelvic Floor Comments Ayleen is able to tighten her pelvic floor however she is also compressing down through the abdominal wall which is most likely placing pressure on the bladder. PT-OP-Q Treatments Start: 02/09/24 08:12 Freq: Status: Active Protocol: Document 03/20/24 17:03 [facility] (Rec: 03/20/24 17:05 [facility] [id number]) Therapeutic Exercises Sidelying Exercises clam shells Equipment Used level 2 TB Reps/Minutes 1x 10 reps Comments hold 10 seconds Other Exercises michael pose with pelvic floor contraction Reps/Minutes hold 3-4 min quadruped sidebends Reps/Minutes x 10 reps each cat cow Reps/Minutes x 10 reps supported michael pose for pelvic floor contract relax Reps/Minutes worked on pelvic floor contractions in this position Manual Therapy Treatment Soft Tissue Mobilization suprapubic fascia MFR Mobilization Type Myofascial Release Intensity/Depth Moderate Body Position Hooklying Comments worked on the suprapubic fasica and mobilization of the bladder PT-OP-T Assessment and Plan Start: 02/09/24 08:12 Freq: Status: Active Protocol: Document 03/20/24 17:03 [facility] (Rec: 03/20/24 17:05 [facility] [id number]) Physical Therapy Assessment Assessment Summary Assessment Ayleen has experienced a flare up of symptoms with both the diverticulitis infection and then the antibiotics contributing to a yeast infection. The internal vaginal sensor was not used today due to irritation. Physical Therapy Plan Frequency and Duration Frequency of Treatment 1x/Week Duration of treatment (weeks) 12 Plan of Care Start Date 02/09/24 Plan of Care End Date 05/03/24 Therapeutic Interventions Therapeutic Interventions Home Exercise Program, Neuromuscular Re-education, Patient/Caregiver Education, Self-Care/Home Management, Therapeutic Exercises Modalities Biofeedback Next Visit Focus/Plan Next Note Type Treatment Note Next Visit Plan reassess Ayleen's symptoms next visit, continue with pelvic floor endurance training and hip strengthening
--- NOTE | 2024-04-03 16:41 | PT.OTN ---
Current Diagnoses Pelvic muscle wasting (04/03/24) Female genital prolapse, unspecified (04/03/24) Postmenopausal atrophic vaginitis (04/03/24) Physical Therapy Treatment Note PT-OP-A Visit Information Start: 02/09/24 08:12 Freq: Status: Active Protocol: Document 04/03/24 09:01 [facility] (Rec: 04/03/24 09:47 [facility] [id number]) Out-Patient Physical Therapy Visit Information Visit Information Visit Type Treatment Note Visit Start Time 09:00 Visit Stop Time 09:45 Visit Number 6 PT-OP-B Current Condition Start: 02/09/24 08:12 Freq: Status: Active Protocol: Document 02/09/24 15:15 [facility] (Rec: 02/09/24 15:28 [facility] [id number]) Current Condition History of Current Condition Onset Date July History of Current Condition pt notes she does exercises everymorning before she gets out of bed. In July she started a fitness class that includes a lot of squats. she can keep up most of the time but the she realized that maybe the squats started aggravating her pelvic organ prolapse in the past couple of months. Pt notes she can see her prolapse, she can feel it and when she sits she has to reagust things. She usually has a bowel movement in the am and if she doesn't then she has a lot of pressure. She has a small amount of leakage. IF she has been on her feet it is slow and coming out. Prior Treatments and Tests pt has been diagnosed with diverticulitis, it flares up every once in a whole history of hysterectomy PT-OP-C Subjective Start: 02/09/24 08:12 Freq: Status: Active Protocol: Document 04/03/24 09:01 [facility] (Rec: 04/03/24 09:47 [facility] [id number]) OP-PT Subjective Patient Comments Patient Comments She doesn't have a appt until April [address] Lamar . Ayleen would like to have a progress report sent to her OBGYN Ayleen reports things have calmed down and the yeast infection medicine has helped. She is no longer experiencing the itching or the burning. She has been laying down every afternoon and has been doing her pelvic floor exercises right as she gets out of bed in the am. She feels like the prolapse is not changing and is staying in a descended position PT-OP-I Pelvic Floor Start: 02/09/24 08:12 Freq: Status: Active Protocol: Document 02/09/24 15:15 [facility] (Rec: 02/09/24 16:24 [facility] [id number]) Pelvic Floor Assessment Urine Pelvic Floor Surgery Yes: hysterectomy 1985 Urinary Symptoms Incomplete Emptying,Falling Out Feeling/Heavy Other Urinary Symptoms rectocele Leakage Size Small Pelvic Clock Pelvic Clock 12-3 Atrophy Pelvic Clock 3-6 Atrophy Pelvic Clock 6-9 Atrophy Pelvic Clock 9-12 Atrophy Prolapse Cystocele Grade 3 Rectocele Grade 2 Prolapse Comments cystocele is visable at the introitus, pt notes it has progressed in the past couple of months history of hysterectomy Contraction Ability Voluntary Contraction Moderate Voluntary Relaxation Moderate Manual Muscle Testing Left 3 Manual Muscle Testing Right 3 Manual Muscle Testing Anterior 3 Manual Muscle Testing Posterior 3 Comments Pelvic Floor Comments Ayleen is able to tighten her pelvic floor however she is also compressing down through the abdominal wall which is most likely placing pressure on the bladder. PT-OP-Q Treatments Start: 02/09/24 08:12 Freq: Status: Active Protocol: Document 04/03/24 09:01 [facility] (Rec: 04/03/24 09:47 [facility] [id number]) Therapeutic Exercises Supine Exercises roll outs with theraband Reps/Minutes x 20 supine ball squeeze with pelvic epifanio Reps/Minutes x 10 reps quick flicks Reps/Minutes x 10 pelvic floor long holds Supine Exercise Name with bolster Reps/Minutes 10 reps holding 10 seconds Comments 14.5 average max 30 uv Other Exercises michael pose with pelvic floor contraction Reps/Minutes hold 3-4 min quadruped sidebends Reps/Minutes x 10 reps each cat cow Reps/Minutes x 10 reps supported michael pose for pelvic floor contract relax Reps/Minutes worked on pelvic floor contractions in this position PT-OP-T Assessment and Plan Start: 02/09/24 08:12 Freq: Status: Active Protocol: Document 04/03/24 09:01 [facility] (Rec: 04/03/24 09:47 [facility] [id number]) Physical Therapy Assessment Goals 3 Impairment Urinary incontinence with coughing and sneezing Record Keeper Goal (LTG) Ayleen reports overall decrease in urinary incontinence with cough and sneeze and is able to brace with her pelvic floor prior to a cough or sneeze. There are days when she has trouble but overall its better LTG Duration 12 weeks 2 Impairment Decreased pelvic floor endurance Short Term Goal (STG) Ayleen is able to sustain a pelvic floor contraction in supine for 10 seconds without upper abdominal substitution STG Duration 5 weeks Record Keeper Goal (LTG) Ayleen is able to sustain a pelvic floor contraction in standing x 5 seconds LTG Duration 12 weeks 1 Impairment Pelvic floor weakness with rectocele/cystocele and c/o pelvic heaviness Short Term Goal (STG) Ayleen is educated on bowel training to encourage a daily bowel movement decreasing pelvic pressure pt understands this and is working on daily bowel movements without straining. STG Duration 4 weeks Record Keeper Goal (LTG) Ayleen is able to return to squats using proper form to decrease downward pressure on her pelvis and she is no longer experiencing the pelvic heaviness symptoms LTG Duration 12 weeks Assessment Summary Assessment Ayleen is being treated in pelvic floor for pelvic floor weakness with rectocele/ cystocele. Ayleen has been progressing well with pelvic floor strengthening. She did have a set back with diverticulitis infection which created much more pelvic pressure and then she experienced a yeast infection after taking the antibiotics which also set her back with pelvic floor training. She is just now feeling that she is able to return to her exercises. She is resting her pelvis daily mid day as well as working on daily bowel movements so she doesn't strain and create downward pressure on her pelvic organs. Ayleen is progressing with her pelvic floor endurance and strength. She would like a surgical opinion and is seeking consult for surgical consideration. She would like to continue PT. Physical Therapy Plan Frequency and Duration Frequency of Treatment 1x/Week Duration of treatment (weeks) 8 Plan of Care Start Date 04/03/24 Plan of Care End Date 05/29/24 Therapeutic Interventions Therapeutic Interventions Home Exercise Program, Neuromuscular Re-education, Patient/Caregiver Education, Self-Care/Home Management, Therapeutic Exercises Modalities Biofeedback Next Visit Focus/Plan Next Note Type Treatment Note Next Visit Plan reassess Ayleen's symptoms next visit, continue with pelvic floor endurance training and hip strengthening
--- NOTE | 2024-04-03 16:42 | PT.OPPOC ---
Physical, Occupational & Speech Therapy At [facility] Current Diagnoses Pelvic muscle wasting (04/03/24) Female genital prolapse, unspecified (04/03/24) Postmenopausal atrophic vaginitis (04/03/24) Visit Care Team Role Provider Type Ligia Mensah DO Attending Provider Physician Family Provider Primary Care Provider Referring Provider Specialty: Medical Address: [address] [place] [address], [address], [place], [address] Email: [email or web address] Plan Of Care PT-OP-B Current Condition Start: 02/09/24 08:12 Freq: Status: Active Protocol: Document 02/09/24 15:15 [facility] (Rec: 02/09/24 15:28 [facility] [id number]) Current Condition History of Current Condition Onset Date July History of Current Condition pt notes she does exercises every morning before she gets out of bed. In July she started a fitness class that includes a lot of squats. she can keep up most of the time but the she realized that maybe the squats started aggravating her pelvic organ prolapse in the past couple of months. Pt notes she can see her prolapse, she can feel it and when she sits she has to re adjust things. She usually has a bowel movement in the am and if she doesn't then she has a lot of pressure. She has a small amount of leakage. IF she has been on her feet it is slow and coming out. Prior Treatments and Tests pt has been diagnosed with diverticulitis, it flares up every once in a whole history of hysterectomy PT-OP-T Assessment and Plan Start: 02/09/24 08:12 Freq: Status: Active Protocol: Document 04/03/24 09:01 [facility] (Rec: 04/03/24 09:47 [facility] [id number]) Physical Therapy Assessment Goals 3 Impairment Urinary incontinence with coughing and sneezing Snf Goal (LTG) Ayleen reports overall decrease in urinary incontinence with cough and sneeze and is able to brace with her pelvic floor prior to a cough or sneeze. There are days when she has trouble but overall its better LTG Duration 12 weeks 2 Impairment Decreased pelvic floor endurance Short Term Goal (STG) Ayleen is able to sustain a pelvic floor contraction in supine for 10 seconds without upper abdominal substitution STG Duration 5 weeks Life Sciences Manager Goal (LTG) Ayleen is able to sustain a pelvic floor contraction in standing x 5 seconds LTG Duration 12 weeks 1 Impairment Pelvic floor weakness with rectocele/cystocele and c/o pelvic heaviness Short Term Goal (STG) Ayleen is educated on bowel training to encourage a daily bowel movement decreasing pelvic pressure pt understands this and is working on daily bowel movements without straining. STG Duration 4 weeks Snf Goal (LTG) Ayleen is able to return to squats using proper form to decrease downward pressure on her pelvis and she is no longer experiencing the pelvic heaviness symptoms LTG Duration 12 weeks Assessment Summary Assessment Ayleen is being treated in pelvic floor for pelvic floor weakness with rectocele/ cystocele. Ayleen has been progressing well with pelvic floor strengthening. She did have a set back with diverticulitis infection which created much more pelvic pressure and then she experienced a yeast infection after taking the antibiotics which also set her back with pelvic floor training. She is just now feeling that she is able to return to her exercises. She is resting her pelvis daily mid day as well as working on daily bowel movements so she doesn't strain and create downward pressure on her pelvic organs. Ayleen is progressing with her pelvic floor endurance and strength. She would like a surgical opinion and is seeking consult for surgical consideration. She would like to continue PT. Physical Therapy Plan Frequency and Duration Frequency of Treatment 1x/Week Duration of treatment (weeks) 8 Plan of Care Start Date 04/03/24 Plan of Care End Date 05/29/24 Therapeutic Interventions Therapeutic Interventions Home Exercise Program, Neuromuscular Re-education, Patient/Caregiver Education, Self-Care/Home Management, Therapeutic Exercises Modalities Biofeedback Next Visit Focus/Plan Next Note Type Treatment Note Next Visit Plan reassess Ayleen's symptoms next visit, continue with pelvic floor endurance training and hip strengthening Plan of Care Dates Plan of Care Start Date 04/03/24 Plan of Care End Date 05/29/24 Electronically Signed by: Shani Tomas, PT 04/10/24 [id number] If you are in agreement with this Plan of Care, please return a signed and dated copy. I have reviewed this Plan of Care and certify that the skilled therapy services above are required to meet the patient?s needs. Physician Signature Date Printed Name and Credentials Clinical Instructor Signature Printed Name and Credentials
--- NOTE | 2024-05-17 17:16 | PT.OTN ---
Current Diagnoses Pelvic muscle wasting (05/17/24) Female genital prolapse, unspecified (05/17/24) Postmenopausal atrophic vaginitis (05/17/24) Physical Therapy Treatment Note PT-OP-A Visit Information Start: 02/09/24 08:12 Freq: Status: Active Protocol: Document 05/17/24 09:45 [facility] (Rec: 05/17/24 17:16 [facility] [id number]) Out-Patient Physical Therapy Visit Information Visit Information Visit Type Treatment Note Visit Start Time 09:45 Visit Stop Time 10:30 Visit Number 7 PT-OP-B Current Condition Start: 02/09/24 08:12 Freq: Status: Active Protocol: Document 02/09/24 15:15 [facility] (Rec: 02/09/24 15:28 [facility] [id number]) Current Condition History of Current Condition Onset Date July History of Current Condition pt notes she does exercises everymorning before she gets out of bed. In July she started a fitness class that includes a lot of squats. she can keep up most of the time but the she realized that maybe the squats started aggravating her pelvic organ prolapse in the past couple of months. Pt notes she can see her prolapse, she can feel it and when she sits she has to reagust things. She usually has a bowel movement in the am and if she doesn't then she has a lot of pressure. She has a small amount of leakage. IF she has been on her feet it is slow and coming out. Prior Treatments and Tests pt has been diagnosed with diverticulitis, it flares up every once in a whole history of hysterectomy PT-OP-C Subjective Start: 02/09/24 08:12 Freq: Status: Active Protocol: Document 05/17/24 09:52 [facility] (Rec: 05/17/24 10:32 [facility] [id number]) OP-PT Subjective Patient Comments Patient Comments pt was fitted with a pessary and it feels really good except is that she has discomfort with a bowel movement she feels like she would like to try the smaller size and she will go back in next week. She notes so much improvement with the pessary in but it is difficult for her to take out. PT-OP-I Pelvic Floor Start: 02/09/24 08:12 Freq: Status: Active Protocol: Document 02/09/24 15:15 [facility] (Rec: 02/09/24 16:24 [facility] [id number]) Pelvic Floor Assessment Urine Pelvic Floor Surgery Yes: hysterectomy 1985 Urinary Symptoms Incomplete Emptying,Falling Out Feeling/Heavy Other Urinary Symptoms rectocele Leakage Size Small Pelvic Clock Pelvic Clock 12-3 Atrophy Pelvic Clock 3-6 Atrophy Pelvic Clock 6-9 Atrophy Pelvic Clock 9-12 Atrophy Prolapse Cystocele Grade 3 Rectocele Grade 2 Prolapse Comments cystocele is visable at the introitus, pt notes it has progressed in the past couple of months history of hysterectomy Contraction Ability Voluntary Contraction Moderate Voluntary Relaxation Moderate Manual Muscle Testing Left 3 Manual Muscle Testing Right 3 Manual Muscle Testing Anterior 3 Manual Muscle Testing Posterior 3 Comments Pelvic Floor Comments Ayleen is able to tighten her pelvic floor however she is also compressing down through the abdominal wall which is most likely placing pressure on the bladder. PT-OP-Q Treatments Start: 02/09/24 08:12 Freq: Status: Active Protocol: Document 05/17/24 09:52 [facility] (Rec: 05/17/24 10:32 [facility] [id number]) Therapeutic Exercises Supine Exercises supine ball squeeze with pelvic epifanio Reps/Minutes x 10 reps quick flicks Reps/Minutes x 10 pelvic floor long holds Reps/Minutes 10 reps holding 10 seconds Comments 11.7 average max of 31.5 uv Self-Care/Home Management Treatment Activities Self-Care/Home Management Activities discussed pessary use and taking the pessary in and out as well as the right size for her. Ayleen is going to go down a size due to painw ith bowel movements with the size she is currently using. PT-OP-T Assessment and Plan Start: 02/09/24 08:12 Freq: Status: Active Protocol: Document 05/17/24 17:11 [facility] (Rec: 05/17/24 17:14 [facility] [id number]) Physical Therapy Assessment Goals 3 Impairment Urinary incontinence with coughing and sneezing Retirement Goal (LTG) Ayleen reports overall decrease in urinary incontinence with cough and sneeze and is able to brace with her pelvic floor prior to a cough or sneeze. There are days when she has trouble but overall its better LTG Duration 12 weeks 2 Impairment Decreased pelvic floor endurance Short Term Goal (STG) Ayleen is able to sustain a pelvic floor contraction in supine for 10 seconds without upper abdominal substitution goal met STG Duration 5 weeks Retirement Goal (LTG) Ayleen is able to sustain a pelvic floor contraction in standing x 5 seconds LTG Duration 12 weeks 1 Impairment Pelvic floor weakness with rectocele/cystocele and c/o pelvic heaviness Short Term Goal (STG) Ayleen is educated on bowel training to encourage a daily bowel movement decreasing pelvic pressure pt understands this and is working on daily bowel movements without straining. STG Duration 4 weeks Retirement Goal (LTG) Ayleen is able to return to squats using proper form to decrease downward pressure on her pelvis and she is no longer experiencing the pelvic heaviness symptoms with use of pessary Ayleen was able to return to her exercise class and did not experience the downward pressure and heaviness in her pelvis LTG Duration 12 weeks Assessment Summary Assessment ayleen returns to PT today for a recheck after being fitted with a pessary. She is needing to work on the pessary sizing a bit as the one she has causes some discomfort with bowel movements. She has a appt next week to try the smaller size down. Her pelvic floor exercises were reviewed and she is doing really well with them. Ayleen notes decreased symptoms with use of pessary. At this time she is Ind with her pelvic floor exercises and will be discharged to a home exercise program Physical Therapy Plan Discharge Physical Therapy Discharge Reasons No Longer Attending PT
== END 2024-05-23 14:24 | disposition home or self-care (01) ==
LOC: PHYS 09:45
PROVIDERS: Family Provider Family Medicine; PCP Family Medicine; Referring Provider Family Medicine; Visit Provider Family Medicine
DX: N81.9 Female genital prolapse, unspecified (principal); N95.2 Postmenopausal atrophic vaginitis; N81.84 Pelvic muscle wasting
CPT/HCPCS: 97110; 97140; 97161; 97535

== ENCOUNTER → 2024-07-05 14:56 | Outpatient (CLI) | payer OTHER, SELFPAY ==
--- NOTE | 2024-07-05 | DI.MG.S_ITS ---
BILATERAL DIGITAL SCREENING MAMMOGRAM 3D/2D WITH CAD: 07/05/2024 CLINICAL: Routine screening. Comparison is made to exams dated: 02/24/2021 mammogram, 02/19/2020 mammogram, and 01/23/2019 mammogram - [facility]. There are scattered areas of fibroglandular density (category b / 25%-50% glandular tissue). Current study was also evaluated with a Computer Aided Detection (CAD) system. There are mole markers on both breasts. No significant masses, calcifications, or other findings are seen in either breast. There has been no significant interval change. IMPRESSION: NEGATIVE There is no mammographic evidence of malignancy. A 1 year screening mammogram is recommended. Based on the Tyrer Cuzick model (a risk assessment model) the patient's lifetime risk is 1.7% and her 10 year risk is 0.0%. According to the ACR, ACS, and NCCN guidelines, an annual breast MRI exam along with mammogram is recommended if the patient's lifetime risk is 20% or greater. This exam was interpreted at Station ID: [id number]. NOTE: For mammograms, a report in lay terms will be sent to the patient. Approximately 15% of breast malignancies will not be visualized mammographically. In the management of a palpable breast mass, a negative mammogram must not discourage biopsy of a clinically suspicious lesion. Electronically Signed By: Ama perez/veronica:07/05/2024 16:13:06 letter sent: Normal Exam ACR BI-RADS Category 1: Negative
== END ==
LOC: MAMMO 14:57
PROVIDERS: Family Provider Family Medicine; PCP Family Medicine; Referring Provider Family Medicine; Visit Provider Family Medicine
DX: Z12.31 Encounter for screening mammogram for malignant neoplasm of breast (principal)
CPT/HCPCS: 77063; 77067

== ENCOUNTER → 2024-08-31 11:47 | Outpatient (CLI) | payer OTHER, SELFPAY | PROVIDERS: Family Provider Family Medicine; PCP Family Medicine; Visit Provider Physician Assistant Surgical | DX: R30.0 Dysuria (principal) | CPT/HCPCS: 87086 ==

== ENCOUNTER 2024-10-18 12:32 | Day surgery (SDC) | payer OTHER, SELFPAY ==
--- NOTE | 2024-10-18 | PATH_ITS ---
[facility] Accession Number: [id number] No. of containers..01 Tissue . 01 Material submitted: . gastrointestinal site - ANTRUM . 01 Diagnosis: ANTRUM: Gastric mucosa with mild chronic inflammation and focal intestinal metaplasia. No Helicobacter organisms identified. No dysplasia or malignancy identified. STO 10/24/2024 1501 Local . 01 Electronically signed: . Ti Lozano MD, Pathologist NPI- [id number] . 01 Gross description: . ANTRUM: Received in formalin are 4 fragment(s) of crum, soft tissue measuring 0.2 x 0.2 x 0.2 cm to 0.4 x 0.2 x 0.2 cm submitted entirely in 1 cassette(s) /CALVIN 10/24/2024 1501 Local . 01 Microscopic: . ANTRUM: An immunohistochemical stain was performed to evaluate for Helicobacter organisms and is negative. The control stains appropriately. * This test was developed and the performance characteristics were validated by [facility]. It has not been cleared or approved by the Food and Drug Administration. . 01 Pathologist provided ICD-10: K29.50, K31.A0 . 01 CPT . 985669, [id number] Specimen Comment: A courtesy copy of this report has been sent to [phone] Performed at: [address] [address], [place], [place] [id number] MD Ti Lozano MD Phone: [phone]
[2024-10-18 13:11] VITALS: BP 153/68; PULSE 72; RESP 18; TEMP 36.2; O2SAT 100
[2024-10-18] MEDS: LACTATED RINGERS 1,000 ML 42 ML IV (13:11)
--- NOTE | 2024-10-18 13:44 | PM.HP.IH.1 ---
History of Present Illness History of Present Illness Date Patient Seen: 10/18/24 Time Patient Seen: 13:45 Chief complaint: [facility] [place] Narrative: Ayleen is here for her EGD and colonoscopy. See the office note from August for details. FOR[facility]LY [facility] Medical History (Updated 09/03/24 @ 15:04 by Hector Torres MD) Personal history of colonic polyps Rectocele (~2020) Plantar fascia syndrome (~2021) Osteoarthritis (~2003) Osteopenia (~1999) Endometriosis (~1983) Hemorrhoid (~1989) High cholesterol HTN (hypertension) (~1999) Vera esophagus (~2011) Surgical History Anesthesia History of cardiac radiofrequency ablation Hx of hysterectomy (~1984) Family History Mother Hypertension Father Heart disease Hyperlipidemia Sister Cancer Sister Cancer Grandfather Stroke Social History marital status: household members: spouse Smoking Status: Former smoker alcohol intake: current substance use type: does not use Meds Home Medications and Allergies Home Medications Medication Instructions Recorded Confirmed Type cholecalciferol (vitamin D3) 10 10 mcg PO DAILY 01/10/20 10/09/24 History mcg/drop (400 unit/drop) oral drops (Baby Vitamin D3) krill oil 500 mg capsule 1 mg PO DAILY 01/10/20 10/09/24 History lactobacillus combination no.9 4 4,000 mmu cells PO DAILY 01/10/20 10/09/24 History billion cell capsule (Adult 50 Plus Probiotic) COVID vac (12up)(Pfi)(PF) 30 ml IM 06/26/24 10/09/24 History mcg/0.3 mL IM syringe (Comirnaty (12y up)(PF)) Progesterone Calm Cream topical 06/26/24 10/09/24 History estradiol 0.01% (0.1 mg/gram) 1 g vaginal 2XW #42.5 grams 06/26/24 10/09/24 Rx vaginal cream flu vacc [id number](65yr up)-PF 180 ml IM 06/26/24 10/09/24 History mcg/0.5 mL intramuscular syringe (Fluzone High-Dose Triv [id number] (PF)) hydrochlorothiazide 12.5 mg tablet 12.5 mg PO DAILY #90 tabs 06/26/24 10/09/24 Rx lisinopril 20 mg tablet 20 mg PO BID #180 tabs 06/26/24 10/09/24 Rx metoprolol succinate 50 mg 50 mg PO DAILY #90 tabs 06/26/24 10/09/24 Rx tablet,extended release 24 hr omeprazole 20 mg capsule,delayed 20 mg PO DAILY #90 caps 06/26/24 10/09/24 Rx release simvastatin 10 mg tablet 10 mg PO DAILY #90 tabs 06/26/24 10/09/24 Rx peg 3350-electrolytes 236 240 ml PO Q10M #4,000 mL 09/05/24 10/09/24 Rx gram-22.74 gram-6.74 gram-5.86 gram solution (Golytely) Allergies Allergy/AdvReac Type Severity Reaction Status Date / Time No Known Drug Allergies Allergy Verified 10/09/24 15:04 Exam Vital Signs (past 8 hours): - 10/18/24 13:11 Temperature 97.1 F L Pulse Rate 72 Respiratory Rate 18 Blood Pressure 153/68 H Pulse Oximetry 100 Oxygen Delivery Method Room Air Oxygen Delivery Method Room Air Const General: No acute distress Assessment & Plan Assessment and plan (1) Personal history of colonic polyps: Status: Acute (2) 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 [employer] Document charge(s): No
[2024-10-18 15:01] VITALS: BP 105/51; PULSE 72; RESP 12; TEMP 36.2; O2SAT 98
--- NOTE | 2024-10-18 15:02 | PM.OP.EC ---
Operative Date/Time/Diagnoses Date of procedure: 10/18/24 Time of procedure: 15:02 Pre-op diagnosis: Vera esophagus and diverticulosis Post-op diagnosis: same Procedure & Clinicians Study performed: Esophagogastroduodenoscopy and colonoscopy Same procedure as scheduled: Yes Surgeon: Hector Torres Procedure Notes Procedure in detail: Surgeon: Hector Torres MD Anesthesia: Bronson Juarez D.O. Procedure in detail: A timeout was performed. A bite blocked was placed and monitors were attached to the patient. The patient was positioned in the left lateral decubitus position. Sedation was administered. Once the patient was sedated the endoscope was inserted through the bite block and passed through the esophagus and stomach and into the duodenum. The duodenum appeared normal. We then withdrew the scope into the stomach. There was some mild antritis and random biopsies were taken from the antrum with cold forceps. The endoscope was retroflexed and moderate hiatal hernia was noted. The endoscope was straightned and withdrawn into the esophagus. The hiatal hernia measured proximally 4 cm. There were some salmon-colored patches of mucosa at the GE junction consistent with a history of Vera esophagus. There were no mass lesions within the esophagus. EGD findings: Antritis, moderate hiatal hernia and salmon-colored patches of mucosa consistent with Vera esophagus Next we repositioned the patient for a colonoscopy. A digital rectal exam was performed and was normal. The colonoscope was inserted and advanced to the cecum. The appendiceal orifice was identified and photographed. The scope was slowly withdrawn over greater than 6 minutes. Pandiverticulosis greatest in the sigmoid colon was noted. The scope was retroflexed in the rectum and no other abnormalities were found. Colonoscopy findings: Diverticulosis Total procedural EBL: 10 mL Scope withdrawal time: 8 minutes Sedation minutes: 20 minutes Post-procedure Disposition: PACU
[2024-10-18 15:05] VITALS: BP 115/49; PULSE 72; RESP 16; O2SAT 98
[2024-10-18 15:12] VITALS: BP 121/48; PULSE 69; RESP 12; O2SAT 99
== END 2024-10-18 15:32 | disposition home or self-care (01) ==
PROVIDERS: Family Provider Family Medicine; PCP Family Medicine; Referring Provider Surgery; Visit Provider Surgery
PROC: 0DJ08ZZ Inspection of Upper Intestinal Tract, Via Natural or Artificial Opening Endoscopic (ICD-10-PCS; CPT 43239; principal; 2024-10-18 13:45)
PROC: 0DJD8ZZ Inspection of Lower Intestinal Tract, Via Natural or Artificial Opening Endoscopic (ICD-10-PCS; CPT 45378; 2024-10-18 13:45)
DX: K57.30 Diverticulosis of large intestine without perforation or abscess without bleeding (principal); K22.70 Barrett's esophagus without dysplasia; Z86.0100 Personal history of colon polyps, unspecified; K44.9 Diaphragmatic hernia without obstruction or gangrene; K29.50 Unspecified chronic gastritis without bleeding; K31.A11 Gastric intestinal metaplasia without dysplasia, involving the antrum
CPT/HCPCS: 43239; 45378; J2704

== ENCOUNTER → 2024-10-25 08:54 | Outpatient (CLI) | payer OTHER, SELFPAY ==
[2024-10-25 10:14] LABS: Alanine Aminotransferase 20 IU/L (<35); Albumin 4.5 g/dL (3.5-5.0); Albumin Globulin Ratio 1.7 (1.0-2.8); Alkaline Phosphatase 85 U/L (38-126); Aspartate Aminotransferase 33 IU/L (14-36); BUN Creatinine Ratio 16.7 (6-22); Bilirubin Total 0.4 mg/dL (0.2-1.3); Blood Urea Nitrogen 14 mg/dL (7-17); Calcium 9.9 mg/dL (8.4-10.2); Carbon Dioxide 29 mmol/L (22-32); Chloride 101 mmol/L (98-107); Cholesterol 158 mg/dL (140-199); Estimated Glomerular Filt Rate > 60 mL/min (>60); Globulin 2.6 g/dL (1.7-4.1); Glucose 101 mg/dL (80-110); HDL Cholesterol 54 mg/dL (40-60); HEMOLYSIS < 15 (0-50); LDL Cholesterol Calculated 71 mg/dL (<100); Potassium 4.2 mmol/L (3.4-5.1); Sodium 139 mmol/L (137-145); Total Protein 7.1 g/dL (6.3-8.2); Triglycerides 165 mg/dL (35-150)
[2024-10-27 03:36] LABS: CRP, High Sensitivity 1.45 mg/L (0.00-3.00)
== END ==
PROVIDERS: Family Provider Family Medicine; PCP Family Medicine; Referring Provider Family Medicine; Visit Provider Family Medicine
DX: E78.00 Pure hypercholesterolemia, unspecified (principal); M85.80 Other specified disorders of bone density and structure, unspecified site; I10 Essential (primary) hypertension
CPT/HCPCS: 80053; 80061; 86140

== ENCOUNTER → 2024-12-21 14:55 | Outpatient (CLI) | payer OTHER, SELFPAY ==
--- NOTE | 2024-12-21 14:56 | DI.RAD.S_ITS ---
PROCEDURE: XR DEXA AXIAL W/VFA INDICATIONS: screen osteoporosis COMPARISON: None. FINDINGS: Lumbar Spine: Bone mineral density 0.973 g/cm2, T score -0.7, previously -0.4. Left Femoral Neck: Bone mineral density 0.645 g/cm2, T score -1.8. Left Hip: Bone mineral density 0.814 g/cm2, T score -1, previously -0.4. Fracture Risk Calculation (when applicable): 10-year fracture risk of a major osteoporotic fracture 14 percent and of a hip fracture 3.5 percent. (T score greater or equal to -1.0 to: NORMAL) (T score from -1.1 to -2.4: OSTEOPENIA) (T score less than or equal to -2.5: OSTEOPOROSIS) IMPRESSION: Osteopenia. Follow-up guidelines as follows: Osteoporosis: Consider a repeat DEXA and Vertebral Fracture Assessment (VFA) exam in 2 years or sooner if medically necessary, to reassess this patient's status. Osteopenia: Consider a repeat DEXA in 2-3 years to reassess this patient's status, or if there is a new clinical indication. Normal: Consider a repeat DEXA in 5 years or sooner, or if there is a new clinical indication. All treatment decisions require clinical judgment and consideration of individual patient factors, including patient preferences, comorbidities, previous drug use, risk factors not captured in the FRAX model (e.g., frailty, falls, vitamin D deficiency, increased bone turnover, interval significant decline in bone density ) and possible under- or over-estimation of fracture risk by FRAX. In addition, the NOF Guide recommends that FDA-approved medical therapies be considered in postmenopausal women and men age >= 50 years with a: * Hip or vertebral (clinical or morphometric) fracture * T-score of <=-2.5 at the spine or hip * Ten-year fracture probability by FRAX of >= 3% for hip fracture or >=20% for major osteoporotic fracture. Dictated by: Natanael Granados M.D. on 12/21/2024 at 21:29 Approved by: Natanael Granados M.D. on 12/21/2024 at 21:29
== END ==
PROVIDERS: Family Provider Family Medicine; PCP Family Medicine; Referring Provider Family Medicine; Visit Provider Family Medicine
DX: M81.0 Age-related osteoporosis without current pathological fracture (principal); M85.852 Other specified disorders of bone density and structure, left thigh
CPT/HCPCS: 77085